=== PATIENT | female | born 1940 | race Caucasian/White ===

== ENCOUNTER 2018-02-21 17:10 | Emergency (ER) | payer MEDICARE, BC ==
--- NOTE | 2018-02-21 18:07 | EDM.PDOC ---
<SebastienVickie davis Lamonte - Last Filed: 02/21/18 19:05> ED HPI GENERAL MEDICAL PROBLEM - General Chief Complaint: Lower Extremity Injury/Pain Stated Complaint: SWOLLEN LEG.SURG 01/30/18 Time Seen by Provider: 02/21/18 17:20 Source of Information: Reports: Patient History Limitations: Reports: No Limitations - History of Present Illness INITIAL COMMENTS - FREE TEXT/NARRATIVE: C/O swelling and tightness to left lower leg and knee starting Monday. PT started Monday. 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 Leg feeling tight tonight. Traveling in car today to to see Derm. Did not contact PCP or Ortho. No fever or chills. No hx clotting problems. Only blood thinner. Left Lower Leg Pain Score (Numeric/FACES): 6 - Related Data Allergies Allergy/AdvReac Type Severity Reaction Status Date / Time diphenhydramine Allergy Other Verified 02/21/18 17:20 Home Meds: Home Meds Acetaminophen 1,000 mg PO Q6HR PRN 08/11/14 [History] Aspirin [Ecotrin] 325 mg PO BEDTIME 08/11/14 [History] Calcium Citrate/Vitamin D3 [Calcium Citrate - Vit D Caplet] 1 tab PO DAILY 08/11 [History] Rosuvastatin [Crestor] 20 mg PO BEDTIME 08/11/14 [History] Vitamin B Complex [B Complex] 1 tab PO BEDTIME 08/11/14 [History] Acetaminophen [Tylenol Extra Strength] 2 tab PO Q6H 11/06/15 [History] Biotin 1 tab PO BEDTIME 11/06/15 [History] Calcium Carb/D3/Magnesium/Zinc [Rodrigo Mag Zinc + D Tablet] 2 tab PO DAILY [History] Cholecalciferol (Vitamin D3) [Vitamin D3] 1 tab PO DAILY 11/06/15 [History] Glucosamine/D3/[place]oswellia Ivet [Osteo Bi-Flex Caplet] 1 tab PO BID 11/06/15 [ History] Glucosamine/Msm/Chondroitin A [Glucosamine Chondroit MSM Tab] 1 tab PO DAILY [History] Krill/[place]-3/Dha/Epa/Lipids [Krill Oil 300 mg Softgel] 1 tab PO DAILY 11/06/15 [History] Lutein 1 tab PO DAILY 11/06/15 [History] Methylcellulose [Citrucel] 1 tab PO BID 11/06/15 [History] Methylcellulose [Fiber] 1 tab PO BID 11/06/15 [History] Potassium 3 tab PO DAILY 11/06/15 [History] Psyllium Seed (With Sugar) [Metamucil Fiber Wafer] 2 wafer PO BEDTIME 11/06/15 [ History] Ubidecarenone [Coenzyme Q10] 1 tab PO DAILY 11/06/15 [History] Bumetanide 1 mg PO ASDIRECTED 02/21/18 [History] Past Medical History HEENT History: Reports: Cataract Other HEENT History: wears glasses Cardiovascular History: Reports: Heart Murmur, High Cholesterol, Hypertension Respiratory History: Reports: None Gastrointestinal History: Reports: None Genitourinary History: Reports: Renal Disease, Urinary Incontinence AN[employer] History: Reports: , Spontaneous Musculoskeletal History: Reports: Back Pain, Chronic, Osteoarthritis Other Musculoskeletal History: spinal stenosis of lumbar region Neurological History: Reports: None Psychiatric History: Reports: None Endocrine/Metabolic History: Reports: Hypothyroidism, Osteopenia Hematologic History: Reports: None Immunologic History: Reports: None Oncologic (Cancer) History: Reports: Colon Other Oncologic History: skin Dermatologic History: Reports: None - Infectious Disease History Infectious Disease History: Reports: Chicken Pox, Measles Other Infectious Disease History: jaundice - Past Surgical History HEENT Surgical History: Reports: None Respiratory Surgical History: Reports: None GI Surgical History: Reports: Appendectomy, Colonoscopy Other GI Surgeries/Procedures: some of bowel removed because of cancer Female Surgical History: Reports: Breast Reduction, D&C Social & Family History - Tobacco Use Smoking Status *Q: Never Smoker Second Hand Smoke Exposure: No Review of Systems - Review of Systems Review Of Systems: ROS reveals no pertinent complaints other than HPI. Eyes: Reports: No Symptoms Ears: Reports: No Symptoms Nose: Reports: No Symptoms Mouth/Throat: Reports: No Symptoms Respiratory: Denies: Shortness of Breath, Wheezing, Pleuritic Chest Pain, Cough , Sputum Cardiovascular: Reports: Edema (left lower leg) GI/Abdominal: Reports: No Symptoms Genitourinary: Reports: No Symptoms Musculoskeletal: Reports: No Symptoms Skin: Reports: No Symptoms, Wound (surgical incision to left knee, nancy intact no redness or drainage. ) Neurological: Reports: No Symptoms ED EXAM, GENERAL - Physical Exam Exam: See Below Exam Limited By: No Limitations General Appearance: Alert, Anxious, Mild Distress, Obese Eye Exam: Bilateral Eye: EOMI, PERRL Ears: Normal External Exam Nose: Normal Inspection Throat/Mouth: Normal Inspection Head: Atraumatic, Normocephalic Neck: Normal Inspection, Full Range of Motion. No: Lymphadenopathy (L), Lymphadenopathy (R) Respiratory/Chest: No Respiratory Distress, Lungs Clear, Normal Breath Sounds Cardiovascular: Normal Peripheral Pulses, Regular Rate, Rhythm GI/Abdominal: Normal Bowel Sounds Back Exam: Full Range of Motion Extremities: Limited Range of Motion, Other (left knee surgical incision, nancy intact without redness, mild warmth lateral knee. Mild swelling to knee , calf and ankle. ) Neurological: Alert, Oriented Psychiatric: Anxious Skin Exam: Warm, Dry, Normal Color Course - Vital Signs Last Recorded V/S: Last Vital Signs Temp 37.1 C 02/21/18 20:35 Pulse 100 02/21/18 20:35 Resp 16 02/21/18 20:35 BP 156/75 H 02/21/18 20:35 Pulse Ox 97 02/21/18 20:35 - Orders/Labs/Meds Labs: Laboratory Tests 02/21/18 02/21/18 Range/Units 18:25 18:25 WBC 10.6 H (5.0-10.0) 10^3/uL RBC 3.62 L (4.2-5.4) 10^6/uL Hgb 11.2 L (12.0-16.0) g/dL Hct 34.2 L (37.0-47.0) % MCV 94.5 (80-100) fL MCH 30.9 (27.0-34.0) pg MCHC 32.7 L (33.0-35.0) g/dL Plt Count 445 (150-450) 10^3/uL Neut % (Auto) 65.2 (42.2-75.2) % Lymph % (Auto) 17.8 L (20.5-50.1) % [place] % (Auto) 13.8 H (2-8) % Eos % (Auto) 2.8 (1.0-3.0) % Baso % (Auto) 0.4 (0.0-1.0) % Sodium 139 (135-145) mmol/L Potassium 3.7 (3.6-5.0) mmol/L Chloride 103 (101-111) mmol/L Carbon Dioxide 26.0 (21.0-31.0) mmol/L Anion Gap 13.7 BUN 16 (7-18) mg/dL Creatinine 1.0 (0.6-1.3) mg/dL Est Cr Clr Drug Dosing 40.68 mL/min Estimated GFR (MDRD) 54 BUN/Creatinine Ratio 16.00 Glucose 105 (74-105) mg/dL Calcium 9.5 (8.4-10.2) mg/dl Total Bilirubin 0.5 (0.2-1.0) mg/dL AST 24 (10-42) IU/L ALT 10 (10-60) IU/L Alkaline Phosphatase 103 (42-121) IU/L Total Protein 7.4 (6.7-8.2) g/dl Albumin 3.7 (3.2-5.5) g/dl Globulin 3.7 Albumin/Globulin Ratio 1.00 Meds: Medications Discontinued Medications Generic Name Dose Route Start Last Admin Trade Name Andreas PRN Reason Stop Dose Admin Hydrocodone Bitart/Acetaminophen 1 tab 02/21/18 18:33 02/21/18 18:42 [place] 325-10 Mg PO 02/21/18 18:34 1 tab ONETIME ONE Administration Bumetanide 1 mg 02/21/18 18:05 02/21/18 18:31 Bumex IVPUSH 02/21/18 18:06 Not Given ONETIME ONE Clindamycin Phosphate 900 mg/ 106 mls @ 200 mls/hr 02/21/18 19:27 02/21/18 19 :36 Sodium Chloride IV 02/21/18 19:58 200 mls/hr ONETIME ONE Administration - Re-Assessments/Exams Free Text/Narrative Re-Assessment/Exam: 02/21/18 18:[address] Esposito with shift change Departure - Departure Disposition: Home, Self-Care 01 Clinical Impression: Post op infection Qualifiers: Encounter type: initial encounter Qualified Code(s): T81.4XXA - Infection following a procedure, initial encounter - Discharge Information Instructions: Wound Infection, [id number] Referrals: Mariah Curry PA [Primary Care Provider] - Forms: ED Department Discharge Additional Instructions: 1) elevate left leg as much as possible 2) avoid excess activity next 48 hours 3) leg swelling should subside in dixon morning if not see Mariah 4) recheck if there is any change or concern rx given; clindamycin 150mg qid x 40 <Burak Esposito - Last Filed: 02/22/18 02:48> Course - Re-Assessments/Exams Free Text/Narrative Re-Assessment/Exam: 02/21/18 19:28 re-exam; states left knee started swelling and turned red on way back from [place]. now feels worse. had total knee on the 7th. left knee swollen red warmth. no lymphangitis. 02/21/18 20:34 re-exam; no c/o, discharge instructions discussed. Departure - Departure Time of Disposition: 20:45 Condition: Good
[2018-02-21] MEDS: Bumetanide 1 MG/4 ML MDV IVPUSH ONE (18:31)
[2018-02-21] MEDS: Acetaminophen/HYDROcodone 325-10 MG Tab PO ONE (18:42)
[2018-02-21 19:01] LABS: ANION GAP 13.7
[2018-02-21] MEDS: Clindamycin Phosphate 900 MG in Sodium Chloride 0.9% 100 ML IV ONE (19:36)
[2018-02-21 20:36] VITALS: BP 156/75
== END 2018-02-21 20:46 | disposition home or self-care (01) ==
LOC: DL.ED 17:10
DX: T81.4XXA Infection following a procedure, initial encounter (principal); I10 Essential (primary) hypertension; Z88.8 Allergy status to other drugs, medicaments and biological substances; Z79.899 Other long term (current) drug therapy; Z96.652 Presence of left artificial knee joint
CPT/HCPCS: 36415; 80053; 85025; 96365; 99284; A9270; J3490; J7050

== ENCOUNTER 2018-02-24 13:22 | Inpatient (IN) | payer MEDICARE, BC ==
[2018-02-24] MEDS ORDERED: HYDROmorphone 1 MG/ML Syringe IVPUSH ONE ×2 (13:47→17:12)
[2018-02-24] MEDS ORDERED: Ondansetron 4 MG/2 ML SDV IV ONE (13:47)
[2018-02-24] MEDS: Sodium Chloride 0.9% 10 ML Syringe FLUSH PRN (13:52)
[2018-02-24] MEDS ORDERED: Sodium Chloride 0.9% 1,000 ML IV ONE (15:23)
[2018-02-24] MEDS ORDERED: Iopamidol 755 Mg/ML 100 ML Bottle IVPUSH ONE (15:23)
--- NOTE | 2018-02-24 17:15 | EDM.PDOC ---
"Scribed by Vandana Davis 02/24/18 1539 for Nabeel Cunningham MD ED HPI GENERAL MEDICAL PROBLEM - General Chief Complaint: Lower Extremity Injury/Pain Stated Complaint: IN BY AMBULANCE Time Seen by Provider: 02/24/18 13:24 Source of Information: Reports: Patient, Family, Old Records, RN, RN Notes Reviewed History Limitations: Reports: No Limitations - History of Present Illness INITIAL COMMENTS - FREE TEXT/NARRATIVE: Patient presents to ER by [facility] with complaint of right knee pain, mild shortness of breath, decreased appetite and generalized weakness. Patient had left total knee replacement, 01/30/18 in [place]. Last week she complained of increased pain and swelling at left knee and calf and was referred to her primary clinic provider. She was diagnosed with left lower extremity DVT and started on Xarelto. Denies fever. Admits to chills. She also has been experiencing nausea today only. No vomiting. No change in bowel or urinary habits. Pt c/o generalized weakness and shortness of breath which has slowly worsened. Pt is afraid that she has become to weak and short of breath to be safe at home alone. Onset: Gradual Duration: Getting Worse Location: Reports: Chest, Lower Extremity, Right Quality: Reports: Ache Severity: Severe Improves with: Reports: None Worsens with: Reports: None Associated Symptoms: Reports: No Other Symptoms Right Knee Pain Score (Numeric/FACES): 9 - Related Data Allergies Allergy/AdvReac Type Severity Reaction Status Date / Time diphenhydramine Allergy Other Verified 02/21/18 17:20 Home Meds: Home Meds Calcium Citrate/Vitamin D3 [Calcium Citrate - Vit D Caplet] 1 tab PO DAILY 08/11 [History] Rosuvastatin [Crestor] 20 mg PO BEDTIME 08/11/14 [History] Acetaminophen [Tylenol Extra Strength] 2 tab PO Q6H 11/06/15 [History] Biotin 1 tab PO BEDTIME 11/06/15 [History] Lutein 1 tab PO DAILY 11/06/15 [History] Methylcellulose [Fiber] 1 tab PO BID 11/06/15 [History] Potassium 3 tab PO DAILY 11/06/15 [History] Psyllium Seed (With Sugar) [Metamucil Fiber Wafer] 2 wafer PO BEDTIME 11/06/15 [ History] Bumetanide 1 mg PO ASDIRECTED 02/21/18 [History] Ascorbic Acid [Vitamin C] 500 mg PO DAILY 02/24/18 [History] Clindamycin HCl 150 mg PO QID 02/24/18 [History] Folic Acid 400 mcg PO DAILY 02/24/18 [History] Magnesium Oxide 250 mg PO DAILY 02/24/18 [History] Oxybutynin Chloride [Ditropan Xl] 10 mg PO DAILY 02/24/18 [History] Potassium Chloride 10 meq PO TID 02/24/18 [History] Rivaroxaban [Xarelto] 15 mg PO TID 02/24/18 [History] oxyCODONE 5 mg PO Q4H PRN 02/24/18 [History] Past Medical History HEENT History: Reports: Cataract Other HEENT History: wears glasses Cardiovascular History: Reports: Heart Murmur, High Cholesterol, Hypertension Respiratory History: Reports: None Gastrointestinal History: Reports: None Genitourinary History: Reports: Renal Disease, Urinary Incontinence [employer]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 [employer]ENT[employer] HE[employer] WORKER History: Reports: , Spontaneous Musculoskeletal History: Reports: Back Pain, Chronic, Osteoarthritis Other Musculoskeletal History: spinal stenosis of lumbar region Neurological History: Reports: None Psychiatric History: Reports: None Endocrine/Metabolic History: Reports: Hypothyroidism, Osteopenia Hematologic History: Reports: None Immunologic History: Reports: None Oncologic (Cancer) History: Reports: Colon Other Oncologic History: skin Dermatologic History: Reports: None - Infectious Disease History Infectious Disease History: Reports: Chicken Pox, Measles Other Infectious Disease History: jaundice - Past Surgical History HEENT Surgical History: Reports: None Respiratory Surgical History: Reports: None GI Surgical History: Reports: Appendectomy, Colonoscopy Other GI Surgeries/Procedures: some of bowel removed because of cancer Female Surgical History: Reports: Breast Reduction, D&C Musculoskeletal Surgical History: Reports: Knee Replacement (left) Social & Family History - Family History Family Medical History: Noncontributory - Living Situation & Occupation Living situation: Reports: Alone Occupation: Retired Review of Systems - Review of Systems Review Of Systems: ROS reveals no pertinent complaints other than HPI. ED EXAM, GENERAL - Physical Exam Exam: See Below Exam Limited By: Other (generalized weakness) General Appearance: Alert, No Apparent Distress, Other (frail appearing, non toxic. ) Eye Exam: Bilateral Eye: Normal Inspection Ears: Normal External Exam, Hearing Grossly Normal Nose: Normal Inspection, Normal Mucosa, No Blood Throat/Mouth: Normal Lips, Normal Teeth, Normal Oropharynx, Normal Voice, Other (slightly dry oral membranes) Head: Atraumatic, Normocephalic Neck: Normal Inspection, Supple, Non-Tender, Full Range of Motion Respiratory/Chest: No Respiratory Distress, No Accessory Muscle Use, Chest Non- Tender, Decreased Breath Sounds ( in bilateral bases. Intermittent right basilar rhonchi. ), Other (No cough.). No: Rales, Wheezing Cardiovascular: Normal Peripheral Pulses, Regular Rate, Rhythm, Other (trace pedal edema) GI/Abdominal: Normal Bowel Sounds, Soft, Non-Tender, No Distention. No: Guarding, Rigid, Rebound (Female) Exam: Deferred Rectal (Female) Exam: Deferred Back Exam: Normal Inspection Extremities: Normal Capillary Refill, Other (Mild generalized tenderness to palpation of the right knee with no visible swelling, erythema and no increased warmth. She has a post surgical left knee with no evidence of acute infection. ) . No: Luke's Sign (right calf nontender), Pallor, Redness Neurological: Alert, Oriented, Normal Cognition, No Motor/Sensory Deficits Psychiatric: Normal Mood Skin Exam: Warm, Dry, Intact, Normal Color, No Rash, Other (small bruise to left palmar hand) Course - Vital Signs Last Recorded V/S: Last Vital Signs Temp 37.0 C 02/24/18 17:09 Pulse 93 02/24/18 17:09 Resp 18 02/24/18 17:09 BP 122/96 H 02/24/18 17:09 Pulse Ox 93 L 02/24/18 13:35 - Orders/Labs/Meds Orders: Active Orders 24 hr Category Date Time Status Peripheral IV Care [RC] . DIRECTED Care 02/24/18 13:46 Active CULTURE BLOOD [BC] Stat Lab 02/24/18 14:47 Ordered CULTURE BLOOD [BC] Stat Lab 02/24/18 16:14 Results UA W/MICROSCOPIC [URIN] Stat Lab 02/24/18 14:48 Ordered HYDROmorphone [Dilaudid] Med 02/24/18 17:12 Once 1 mg IVPUSH ONETIME ONE Sodium Chloride 0.9% [Normal Saline] 1,000 ml Med 02/24/18 15:23 Active IV .BOLUS Sodium Chloride 0.9% [Saline Flush] Med 02/24/18 13:45 Active 10 ml FLUSH ASDIRECTED PRN Blood Culture x2 Reflex Set [OM.PC] Stat Oth 02/24/18 14:47 Ordered Peripheral IV Insertion Adult [OM.PC] Stat Ot 02/24/18 13:45 Ordered Medication Orders Sodium Chloride (Normal Saline) 1,000 mls @ 500 mls/hr IV .BOLUS ONE Stop: 02/24/18 17:22 Last Admin: 02/24/18 15:27 Dose: 500 mls/hr Sodium Chloride (Saline Flush) 10 ml FLUSH ASDIRECTED PRN PRN Reason: Keep Vein Open Last Admin: 02/24/18 13:52 Dose: 10 ml Labs: Laboratory Tests 02/24/18 02/24/18 02/24/18 Range/Units 13:58 13:58 13:58 WBC 17.6 H (5.0-10.0) 10^3/uL RBC 3.82 L (4.2-5.4) 10^6/uL Hgb 11.7 L (12.0-16.0) g/dL Hct 35.7 L (37.0-47.0) % MCV 93.5 (80-100) fL MCH 30.6 (27.0-34.0) pg MCHC 32.8 L (33.0-35.0) g/dL Plt Count 464 H (150-450) 10^3/uL Neut % (Auto) 75.9 H (42.2-75.2) % Lymph % (Auto) 10.8 L (20.5-50.1) % Coos % (Auto) 12.6 H (2-8) % Eos % (Auto) 0.5 L (1.0-3.0) % Baso % (Auto) 0.2 (0.0-1.0) % PT (9.0-12.0) SEC INR (0.9-1.2) APTT (22.0-34.0) SEC Sodium 136 (135-145) mmol/L Potassium 4.0 (3.6-5.0) mmol/L Chloride 99 L (101-111) mmol/L Carbon Dioxide 26.0 (21.0-31.0) mmol/L Anion Gap 15.0 BUN 12 (7-18) mg/dL Creatinine 1.1 (0.6-1.3) mg/dL Est Cr Clr Drug Dosing 36.21 mL/min Estimated GFR (MDRD) 48 BUN/Creatinine Ratio 10.90 Glucose 112 H (74-105) mg/dL Lactic Acid (0.5-2.2) mmol/L Calcium 9.1 (8.4-10.2) mg/dl Total Bilirubin 1.0 (0.2-1.0) mg/dL AST 21 (10-42) IU/L ALT 9 L (10-60) IU/L Alkaline Phosphatase 93 (42-121) IU/L B-Natriuretic Peptide 109 H (0-100) pg/ml Total Protein 7.2 (6.7-8.2) g/dl Albumin 3.6 (3.2-5.5) g/dl Globulin 3.6 Albumin/Globulin Ratio 1.00 Amylase 25 L (28-100) U/L Lipase 16 L (22-51) U/L Urine Color (YELLOW) Urine Appearance (CLEAR) Urine pH (5.0-9.0) Ur Specific [place] (1.005-1.030) Urine Protein (NEGATIVE) Urine Glucose (UA) (NEGATIVE) Urine Ketones (NEGATIVE) Urine Occult Blood (NEGATIVE) Urine Nitrite (NEGATIVE) Urine Bilirubin (NEGATIVE) Urine Urobilinogen (0.2-1.0) mg/dL Ur Leukocyte Esterase (NEGATIVE) Urine RBC /HPF Urine WBC (0-5/HPF) /HPF Ur Epithelial Cells /HPF Urine Bacteria (0-FEW/HPF) /HPF Urine Mucus /LPF Urine Other 02/24/18 02/24/18 02/24/18 Range/Units 14:47 14:48 16:14 WBC (5.0-10.0) 10^3/uL RBC (4.2-5.4) 10^6/uL Hgb (12.0-16.0) g/dL Hct (37.0-47.0) % MCV (80-100) fL MCH (27.0-34.0) pg MCHC (33.0-35.0) g/dL Plt Count (150-450) 10^3/uL Neut % (Auto) (42.2-75.2) % Lymph % (Auto) (20.5-50.1) % Coos % (Auto) (2-8) % Eos % (Auto) (1.0-3.0) % Baso % (Auto) (0.0-1.0) % PT 14.4 H (9.0-12.0) SEC INR 1.5 H (0.9-1.2) APTT 44.2 H (22.0-34.0) SEC Sodium (135-145) mmol/L Potassium (3.6-5.0) mmol/L Chloride (101-111) mmol/L Carbon Dioxide (21.0-31.0) mmol/L Anion Gap BUN (7-18) mg/dL Creatinine (0.6-1.3) mg/dL Est Cr Clr Drug Dosing mL/min Estimated GFR (MDRD) BUN/Creatinine Ratio Glucose (74-105) mg/dL Lactic Acid 1.0 (0.5-2.2) mmol/L Calcium (8.4-10.2) mg/dl Total Bilirubin (0.2-1.0) mg/dL AST (10-42) IU/L ALT (10-60) IU/L Alkaline Phosphatase (42-121) IU/L B-Natriuretic Peptide (0-100) pg/ml Total Protein (6.7-8.2) g/dl Albumin (3.2-5.5) g/dl Globulin Albumin/Globulin Ratio Amylase (28-100) U/L Lipase (22-51) U/L Urine Color Yellow (YELLOW) Urine Appearance Slightly cloudy (CLEAR) Urine pH 5.5 (5.0-9.0) Ur Specific [place] 1.010 (1.005-1.030) Urine Protein Negative (NEGATIVE) Urine Glucose (UA) Negative (NEGATIVE) Urine Ketones Negative (NEGATIVE) Urine Occult Blood Trace-lysed H (NEGATIVE) Urine Nitrite Negative (NEGATIVE) Urine Bilirubin Negative (NEGATIVE) Urine Urobilinogen 0.2 (0.2-1.0) mg/dL Ur Leukocyte Esterase Moderate H (NEGATIVE) Urine RBC 0-5 /HPF Urine WBC 5-10 H (0-5/HPF) /HPF Ur Epithelial Cells Many H /HPF Urine Bacteria Few (0-FEW/HPF) /HPF Urine Mucus Few H /LPF Urine Other See note Meds: Medications Generic Name Dose Route Start Last Admin Trade Name Freq PRN Reason Stop Dose Admin Sodium Chloride 1,000 mls @ 500 mls/hr 02/24/18 15:23 02/24/18 15:27 Normal Saline IV 02/24/18 17:22 500 mls/hr .BOLUS ONE Administration Sodium Chloride 10 ml 02/24/18 13:45 02/24/18 13:52 Saline Flush FLUSH 10 ml ASDIRECTED PRN Administration Keep Vein Open Discontinued Medications Generic Name Dose Route Start Last Admin Trade Name Freq PRN Reason Stop Dose Admin Hydromorphone HCl 1 mg 02/24/18 13:47 02/24/18 13:53 Dilaudid IVPUSH 02/24/18 13:48 1 mg ONETIME ONE Administration Iopamidol 100 ml 02/24/18 15:23 02/24/18 15:36 Isovue-370 (76%) IVPUSH 02/24/18 15:24 100 ml ONETIME ONE Administration Ondansetron HCl 4 mg 02/24/18 13:47 02/24/18 13:52 Zofran IV 02/24/18 13:48 4 mg ONETIME ONE Administration - Radiology Interpretation Free Text/Narrative:: [facility] Final Radiology Report Call: [phone] assistance Online chat: [email or web address] Name: ALOK OROSCO Age: 77Years F Date: 02/24/2018 SSN: -- : [id number] Study: XR CHEST 1 VIEW Requesting Physician: NABEEL CUNNINGHAM Images: 1 Addl Studies: Provided Clinical History: Contrast: Contrast Medium: Contrast Amount: Contrast Method: CONFIDENTIALITY STATEMENT This report is intended only for use by the referring physician, and only in accordance with law. If you received this in error, call [phone]. Page 1 of 1 EXAM: XR Chest, 1 View CLINICAL HISTORY: 77 years old, female; Signs and symptoms; Other: Hypoxiarhonchi rt base wbc 17.6 TECHNIQUE: Frontal view of the chest. COMPARISON: No relevant prior studies available. FINDINGS: Lungs: Unremarkable. No consolidation. Pleural space: Unremarkable. No pneumothorax. Heart: Unremarkable. No cardiomegaly. Mediastinum: Unremarkable. Bones/joints: Unremarkable. IMPRESSION: No acute cardiopulmonary process. Thank you for allowing us to participate in the care of your patient. Dictated and Authenticated by: Alec Patton MD 02/24/2018 3:18 PM [facility] [place] [facility] Final Radiology Report Call: [phone] assistance Online chat: [email or web address] Name: ALOK OROSCO Age: 77Years F Date: 02/24/2018 SSN: -- : [id number] Study: CT CHEST W Requesting Physician: NABEEL CUNNINGHAM Images: 409 Addl Studies: Provided Clinical History: Contrast: With Contrast Medium: Contrast Amount: 82 mL Contrast Method: lac Page 1 of 2 EXAM: CT Chest With Intravenous Contrast CLINICAL HISTORY: 77 years old, female; Signs and symptoms; Other: Hypoxia, dvt left lower extremity, toal knee replacement left knee 01/30/18--pe eval TECHNIQUE: Axial computed tomography images of the chest with intravenous contrast. All CT scans at this facility use at least one of these dose optimization techniques: automated exposure control; mA and/or kV adjustment per patient size (includes targeted exams where dose is matched to clinical indication); or iterative reconstruction. Coronal and sagittal reformatted images were created and reviewed. CONTRAST: 82 mL of administered intravenously. COMPARISON: CR - Chest 1V Frontal 02/24/2018 2:42 PM FINDINGS: Lungs: There are linear bands of atelectasis in both lower lobes. Pleural space: Unremarkable. No pneumothorax. No significant effusion. Heart: There is mild cardiomegaly No significant pericardial effusion. Thyroid: There is a large right lobe of the thyroid. Bones/joints: Unremarkable. No acute fracture. No dislocation. Soft tissues: Unremarkable. Vasculature: There are small peripheral emboli in the left upper lobe, image 57 series 9. There is question of small peripheral embolism right lower lobe, image 83. No thoracic aortic aneurysm. Lymph nodes: Unremarkable. No enlarged lymph nodes. ALOK OROSCO | Final Radiology Report CONFIDENTIALITY STATEMENT This report is intended only for use by the referring physician, and only in accordance with law. If you received this in error, call [phone]. Page 2 of 2 IMPRESSION: Small peripheral pulmonary emboli bilaterally. Enlarged right lobe of the thyroid. Thyroid ultrasound is advised to further evaluate. Thank you for allowing us to participate in the care of your patient. Dictated and Authenticated by: Alec Patton MD 02/24/2018 4:51 PM Central Time Departure - Departure Time of Disposition: 17:08 ((Admit to Dr. Tristan)) Disposition: Admitted As Inpatient 66 Condition: Serious Clinical Impression: Hypoxia Pulmonary emboli Qualifiers: Pulmonary embolism type: other Chronicity: acute Acute cor pulmonale presence: without acute cor pulmonale Qualified Code(s): I26.99 - Other pulmonary embolism without acute cor pulmonale DVT, lower extremity Qualifiers: Affected thrombotic vein of extremity: unspecified vein of extremity Chronicity : acute Laterality: left Qualified Code(s): I82.402 - Acute embolism and thrombosis of unspecified deep veins of left lower extremity - Discharge Information Forms: ED Department Discharge - My Orders Last 24 Hours: My Active Orders 02/24/18 13:45 Sodium Chloride 0.9% [Saline Flush] 10 ml FLUSH ASDIRECTED PRN Peripheral IV Insertion Adult [OM.PC] Stat 02/24/18 13:46 Peripheral IV Care [RC] . DIRECTED 02/24/18 14:47 CULTURE BLOOD [BC] Stat Blood Culture x2 Reflex Set [OM.PC] Stat 02/24/18 14:48 UA W/MICROSCOPIC [URIN] Stat 02/24/18 15:23 Sodium Chloride 0.9% [Normal Saline] 1,000 ml IV .BOLUS 02/24/18 16:14 CULTURE BLOOD [BC] Stat 02/24/18 17:12 HYDROmorphone [Dilaudid] 1 mg IVPUSH ONETIME ONE - Assessment/Plan Last 24 Hours: My Active Orders 02/24/18 13:45 Sodium Chloride 0.9% [Saline Flush] 10 ml FLUSH ASDIRECTED PRN Peripheral IV Insertion Adult [OM.PC] Stat 02/24/18 13:46 Peripheral IV Care [RC] . DIRECTED 02/24/18 14:47 CULTURE BLOOD [BC] Stat Blood Culture x2 Reflex Set [OM.PC] Stat 02/24/18 14:48 UA W/MICROSCOPIC [URIN] Stat 02/24/18 15:23 Sodium Chloride 0.9% [Normal Saline] 1,000 ml IV .BOLUS 02/24/18 16:14 CULTURE BLOOD [BC] Stat 02/24/18 17:12 HYDROmorphone [Dilaudid] 1 mg IVPUSH ONETIME ONE I have read and agree with the documentation that has been completed regarding this visit. By signing this record, I attest that the documentation was completed in my physical presence and is an accurate record of the encounter."
--- NOTE | 2018-02-24 17:51 | PCM.HP ---
H&P History of Present Illness - General Date of Service: 02/24/18 Admit Problem/Dx: Admitted with: Right Knee Pain, acute Hypoxia and generalized weakness Source of Information: Patient, Old Records - History of Present Illness Initial Comments - Free Text/Narative: Ms. Esperanza Jasso 77 y.o.with medical history noted for hypertension and morbid obesity, S/P colon resection for colon cancer, hypothyroidism, CKD stage III with base line creatinine 1.1-1.4 mg/dl .The patient presented to ER of [place] [facility] with complaint of right knee pain, acute shortness of breath, decreased appetite and generalized weakness. Patient had left total knee replacement, 01/30/18 in [place] .Last week she complained of increased pain and swelling at left knee and calf and was referred to her primary clinic provider. She was diagnosed with left lower extremity DVT and started on Xarelto. She is leaving alone at home alone and because of weakness and Increased shortness of breath , it was felt the she will not be be safe at home and admitted for possible placement and also she is not on oxygen at home and she is now requiring oxygen and that needs to be weaned off . Pt had CT chest with contrast Today ( 02/24/18) and it showed small peripheral pulmonary Emboli Bilaterally and enlarged right lobe of the Thyroid. Onset of Symptoms: Reports: Gradual Duration of Symptoms: Reports: Day(s): (2) Location: Reports: Lower Extremity, Right Quality: Reports: Sharp Severity: Moderate Associated Symptoms: Reports: Weakness Right Knee Pain Score (Numeric/FACES): 9 - Related Data Allergies/Adverse Reactions: Allergies Allergy/AdvReac Type Severity Reaction Status Date / Time diphenhydramine Allergy Other Verified 02/24/18 19:24 Home Medications: Home Meds Calcium Citrate/Vitamin D3 [Calcium Citrate - Vit D Caplet] 1 tab PO DAILY 08/11 [History] Rosuvastatin [Crestor] 20 mg PO BEDTIME 08/11/14 [History] Acetaminophen [Tylenol Extra Strength] 2 tab PO Q6H 11/06/15 [History] Biotin 1 tab PO BEDTIME 11/06/15 [History] Lutein 1 tab PO DAILY 11/06/15 [History] Methylcellulose [Fiber] 1 tab PO TID 11/06/15 [History] Bumetanide 1 mg PO Q48H 02/21/18 [History] Ascorbic Acid [Vitamin C] 500 mg PO 1400 02/24/18 [History] Clindamycin HCl 150 mg PO QID 02/24/18 [History] Folic Acid 400 mcg PO DAILY 02/24/18 [History] Glucosamine/Msm/Chondroitin A [Triple Flex Caplet] 1 each PO 1400 02/24/18 [ History] Magnesium Oxide 250 mg PO 1400 02/24/18 [History] Oxybutynin Chloride [Ditropan Xl] 10 mg PO BEDTIME 02/24/18 [History] Potassium Chloride 10 meq PO TID 02/24/18 [History] Rivaroxaban [Xarelto] 15 mg PO BID 02/24/18 [History] oxyCODONE 5 mg PO Q4H PRN 02/24/18 [History] Past Medical History HEENT History: Reports: Cataract Other HEENT History: wears glasses Cardiovascular History: Reports: Heart Murmur, High Cholesterol, Hypertension Respiratory History: Reports: None Gastrointestinal History: Reports: None Genitourinary History: Reports: Renal Disease, Urinary Incontinence [employer] History: Reports: , Spontaneous Musculoskeletal History: Reports: Back Pain, Chronic, Osteoarthritis Other Musculoskeletal History: spinal stenosis of lumbar region Neurological History: Reports: None Psychiatric History: Reports: None Endocrine/Metabolic History: Reports: Hypothyroidism, Osteopenia Hematologic History: Reports: None Immunologic History: Reports: None Oncologic (Cancer) History: Reports: Colon Other Oncologic History: skin Dermatologic History: Reports: None - Infectious Disease History Infectious Disease History: Reports: Chicken Pox, Measles Other Infectious Disease History: jaundice - Past Surgical History HEENT Surgical History: Reports: None Respiratory Surgical History: Reports: None GI Surgical History: Reports: Appendectomy, Colonoscopy Other GI Surgeries/Procedures: some of bowel removed because of cancer Female Surgical History: Reports: Breast Reduction, D&C Musculoskeletal Surgical History: Reports: Knee Replacement (left) Social & Family History - Family History Family Medical History: Noncontributory - Tobacco Use Smoking Status *Q: Never Smoker - Caffeine Use Caffeine Use: Reports: Coffee - Recreational Drug Use Recreational Drug Use: No - Living Situation & Occupation Living situation: Reports: Alone Occupation: Retired H&P Review of Systems - Review of Systems: Review Of Systems: See Below General: Reports: Weakness, Fatigue. Denies: Fever, Chills, Weight Loss, Weight Gain HEENT: Denies: Headaches, Sinus Congestion, Sore Throat, Visual Changes Pulmonary: Reports: Shortness of Breath. Denies: Cough, Sputum Cardiovascular: Denies: Chest Pain, Dyspnea on Exertion, Lightheadedness Gastrointestinal: Denies: Abdominal Pain, Diarrhea, Nausea, Vomiting Genitourinary: Reports: Hematuria. Denies: Dysuria, Frequency, Burning, Urgency , Flank Pain Musculoskeletal: Reports: Other (Left Knee pain) Skin: Denies: Jaundice, Bruising, Pruritis, Rash Psychiatric: Denies: Anxiety, Hallucinations Neurological: Denies: Confusion, Tingling, Tremors Hematologic/Lymphatic: Reports: No Symptoms Immunologic: Reports: No Symptoms Exam - Exam Exam: See Below - Vital Signs Vital Signs: Last Vital Signs Temp 37.0 C 02/24/18 17:09 Pulse 93 02/24/18 17:09 Resp 18 02/24/18 17:09 BP 122/96 H 02/24/18 17:09 Pulse Ox 93 L 02/24/18 13:35 Weight: 90.718 kg - Exam Quality Assessment: Supplemental Oxygen, DVT Prophylaxis. No: Central Line/PICC , Urinary Catheter General: Alert, Oriented, Cooperative HEENT: Conjunctiva Clear, Hearing Intact, Mucosa Moist & [place] Neck: Supple. No: Lymphadenopathy, Thyromegaly Cardiovascular: Regular Rate, Regular Rhythm, Normal S1, Normal S2, Systolic Murmur GI/Abdominal Exam: Normal Bowel Sounds, Soft, Non-Tender. No: Guarding, Rebound , Tender (Female) Exam: Deferred Rectal (Female) Exam: Deferred Back Exam: Normal Inspection, Full Range of Motion Extremities: Normal Inspection, Pedal Edema Skin: Warm, Dry, Intact Neurological: Cranial Nerves Intact Neuro Extensive - Mental Status: Alert, Oriented x3, Normal Mood/Affect, Normal Cognition, Memory Intact Psychiatric: Alert, Normal Affect, Normal Mood - Patient Data Lab Results Last 24 hrs: Laboratory Results - last 24 hr 02/24/18 02/24/18 02/24/18 Range/Units 13:58 13:58 13:58 WBC 17.6 H (5.0-10.0) 10^3/uL RBC 3.82 L (4.2-5.4) 10^6/uL Hgb 11.7 L (12.0-16.0) g/dL Hct 35.7 L (37.0-47.0) % MCV 93.5 (80-100) fL MCH 30.6 (27.0-34.0) pg MCHC 32.8 L (33.0-35.0) g/dL Plt Count 464 H (150-450) 10^3/uL Neut % (Auto) 75.9 H (42.2-75.2) % Lymph % (Auto) 10.8 L (20.5-50.1) % [place] % (Auto) 12.6 H (2-8) % Eos % (Auto) 0.5 L (1.0-3.0) % Baso % (Auto) 0.2 (0.0-1.0) % PT (9.0-12.0) SEC INR (0.9-1.2) APTT (22.0-34.0) SEC Sodium 136 (135-145) mmol/L Potassium 4.0 (3.6-5.0) mmol/L Chloride 99 L (101-111) mmol/L Carbon Dioxide 26.0 (21.0-31.0) mmol/L Anion Gap 15.0 BUN 12 (7-18) mg/dL Creatinine 1.1 (0.6-1.3) mg/dL Est Cr Clr Drug Dosing 36.21 mL/min Estimated GFR (MDRD) 48 BUN/Creatinine Ratio 10.90 Glucose 112 H (74-105) mg/dL Lactic Acid (0.5-2.2) mmol/L Calcium 9.1 (8.4-10.2) mg/dl Total Bilirubin 1.0 (0.2-1.0) mg/dL AST 21 (10-42) IU/L ALT 9 L (10-60) IU/L Alkaline Phosphatase 93 (42-121) IU/L B-Natriuretic Peptide 109 H (0-100) pg/ml Total Protein 7.2 (6.7-8.2) g/dl Albumin 3.6 (3.2-5.5) g/dl Globulin 3.6 Albumin/Globulin Ratio 1.00 Amylase 25 L (28-100) U/L Lipase 16 L (22-51) U/L Urine Color (YELLOW) Urine Appearance (CLEAR) Urine pH (5.0-9.0) Ur Specific [place] (1.005-1.030) Urine Protein (NEGATIVE) Urine Glucose (UA) (NEGATIVE) Urine Ketones (NEGATIVE) Urine Occult Blood (NEGATIVE) Urine Nitrite (NEGATIVE) Urine Bilirubin (NEGATIVE) Urine Urobilinogen (0.2-1.0) mg/dL Ur Leukocyte Esterase (NEGATIVE) Urine RBC /HPF Urine WBC (0-5/HPF) /HPF Ur Epithelial Cells /HPF Urine Bacteria (0-FEW/HPF) /HPF Urine Mucus /LPF Urine Other 02/24/18 02/24/18 02/24/18 Range/Units 14:47 14:48 16:14 WBC (5.0-10.0) 10^3/uL RBC (4.2-5.4) 10^6/uL Hgb (12.0-16.0) g/dL Hct (37.0-47.0) % MCV (80-100) fL MCH (27.0-34.0) pg MCHC (33.0-35.0) g/dL Plt Count (150-450) 10^3/uL Neut % (Auto) (42.2-75.2) % Lymph % (Auto) (20.5-50.1) % [place] % (Auto) (2-8) % Eos % (Auto) (1.0-3.0) % Baso % (Auto) (0.0-1.0) % PT 14.4 H (9.0-12.0) SEC INR 1.5 H (0.9-1.2) APTT 44.2 H (22.0-34.0) SEC Sodium (135-145) mmol/L Potassium (3.6-5.0) mmol/L Chloride (101-111) mmol/L Carbon Dioxide (21.0-31.0) mmol/L Anion Gap BUN (7-18) mg/dL Creatinine (0.6-1.3) mg/dL Est Cr Clr Drug Dosing mL/min Estimated GFR (MDRD) BUN/Creatinine Ratio Glucose (74-105) mg/dL Lactic Acid 1.0 (0.5-2.2) mmol/L Calcium (8.4-10.2) mg/dl Total Bilirubin (0.2-1.0) mg/dL AST (10-42) IU/L ALT (10-60) IU/L Alkaline Phosphatase (42-121) IU/L B-Natriuretic Peptide (0-100) pg/ml Total Protein (6.7-8.2) g/dl Albumin (3.2-5.5) g/dl Globulin Albumin/Globulin Ratio Amylase (28-100) U/L Lipase (22-51) U/L Urine Color Yellow (YELLOW) Urine Appearance Slightly cloudy (CLEAR) Urine pH 5.5 (5.0-9.0) Ur Specific [place] 1.010 (1.005-1.030) Urine Protein Negative (NEGATIVE) Urine Glucose (UA) Negative (NEGATIVE) Urine Ketones Negative (NEGATIVE) Urine Occult Blood Trace-lysed H (NEGATIVE) Urine Nitrite Negative (NEGATIVE) Urine Bilirubin Negative (NEGATIVE) Urine Urobilinogen 0.2 (0.2-1.0) mg/dL Ur Leukocyte Esterase Moderate H (NEGATIVE) Urine RBC 0-5 /HPF Urine WBC 5-10 H (0-5/HPF) /HPF Ur Epithelial Cells Many H /HPF Urine Bacteria Few (0-FEW/HPF) /HPF Urine Mucus Few H /LPF Urine Other See note Result Diagrams: 02/24/18 13:58 02/24/18 13:58 Luis Antonio Results Last 24 hrs: Microbiology 02/24/18 16:14 Anaerobic Blood Culture - Final Blood - Venous - Lab Draw - Problem List (1) Hypoxia SNOMED Code(s): 657644216 ICD Code: R09.02 - HYPOXEMIA Status: Acute Current Visit: No (2) Post op infection SNOMED Code(s): 56564894 ICD Code: T81.4XXA - INFECTION FOLLOWING A PROCEDURE, INITIAL ENCOUNTER Status: Acute Current Visit: No Qualifiers: Encounter type: initial encounter (3) Pulmonary emboli SNOMED Code(s): 93906376 ICD Code: I26.99 - OTHER PULMONARY EMBOLISM WITHOUT ACUTE COR PULMONALE Status: Acute Current Visit: No Qualifiers: Pulmonary embolism type: other Chronicity: acute Acute cor pulmonale presence: without acute cor pulmonale Qualified Code(s): I26.99 - Other pulmonary embolism without acute cor pulmonale Problem List Initiated/Reviewed/Updated: Yes Orders Last 24hrs: Active Orders 24 hr Category Date Time Status Peripheral IV Care [RC] . DIRECTED Care 02/24/18 13:46 Active CULTURE BLOOD [BC] Stat Lab 02/24/18 14:47 Ordered CULTURE BLOOD [BC] Stat Lab 02/24/18 16:14 Results UA W/MICROSCOPIC [URIN] Stat Lab 02/24/18 14:48 Ordered Sodium Chloride 0.9% [Saline Flush] Med 02/24/18 13:45 Active 10 ml FLUSH ASDIRECTED PRN Blood Culture x2 Reflex Set [OM.PC] Stat Oth 02/24/18 14:47 Ordered Peripheral IV Insertion Adult [OM.PC] Stat Oth 02/24/18 13:45 Ordered Medication Orders Sodium Chloride (Saline Flush) 10 ml FLUSH ASDIRECTED PRN PRN Reason: Keep Vein Open Last Admin: 02/24/18 13:52 Dose: 10 ml Assessment/Plan Comment:: This is a 77 Y/O F admitted with Acute Hypoxia and Rt Knee pain with generalized weakness Impression and Plan: 1. Acute Hypoxia: This is likely from small Peripheral Pulmonary Emboli Bilaterally noted by CT chest with contrst and also noted to have bands of Atelectasis in both lower lobes of the lung -Will continue Xeralto at 15 mg 2 times a day -Will give IS and avise pt to use IS evaery hour -Will continue NC oxygen and try to wean as tolerated 2. Left LE DVT: pt was diagnosed with Left LE DVT diagnosed on 02/22/18 by [facility] -She was started on Xeralto 15 mg 2 times a day and will continue 3. RT LE Cellulitis: Pt was seen in [place] ED on 02/21/18 with with erythema of the incision site of the Left LE -She is now on clindamycin 150 mg 4 times a day and will continue for a week -At this time I have examined her incision site and there is no erythema but warmer than Rt LE and will continue abx 4. Rt LE pain: Pt has signifiant arthritis of Rt Knee and will likely have total knee replacement of the right side -She is also favoring Rt knee and placing more weight on right side after the left Knee Total knee replacement -Will continue Oxycodone 5. Hypothyroidism: Pt has history of Hypothyroidism and no on levothyroxine, but CT chest with contrast showed enlarge right lobe of thyroid, need further evaluation by Ultrasound and that can be done as out pt 6. CKD stage III: This is likely from Hypertension and base line creatinine 1.1 -1.4 mg/dl -Pt had contrast exposure today ( 02/24/18) and will continue NS at 50 ml/hr -Will give IV lasix in AM -Avoid Hypotension -BMP in AM 7. DVT prophylaxis: Continue Xeralto 8. GI prophylaxis: continue Protonix 9. Code Status: Full code
[2018-02-24] MEDS ORDERED: Docusate Sodium 100 MG Cap PO PRN (19:28)
[2018-02-24] MEDS ORDERED: Sodium Chloride 0.9% 1,000 ML IV SCH (19:45)
[2018-02-24] MEDS ORDERED: Albuterol 0.083% 2.5 MG/3 ML Neb Soln NEB PRN (19:46)
[2018-02-24] MEDS ORDERED: HYDROmorphone 1 MG/ML Syringe IVPUSH PRN (19:47)
[2018-02-24] MEDS: oxyCODONE 5 MG Tab PO PRN (20:58)
[2018-02-24] MEDS: Acetaminophen 325 MG Tab PO PRN (21:00)
[2018-02-24] MEDS: Oxybutynin 5 MG Tab.ER PO SCH (21:01)
[2018-02-24] MEDS: RIVAROXABAN 10 MG PO SCH (21:03)
[2018-02-24] MEDS: Potassium Chloride 10 MEQ Tab.ER PO SCH (21:04)
[2018-02-24] MEDS: Clindamycin HCl 150 MG Cap PO SCH (21:04)
[2018-02-24] MEDS: Rosuvastatin 10 MG Tab PO SCH (21:05)
[2018-02-25] MEDS: Acetaminophen 325 MG Tab PO PRN ×2 (04:22→22:44)
[2018-02-25] MEDS: oxyCODONE 5 MG Tab PO PRN ×4 (04:22→22:44)
[2018-02-25 07:10] LABS: ANION GAP 11.8
[2018-02-25] MEDS: Clindamycin HCl 150 MG Cap PO SCH ×4 (08:34→20:49)
[2018-02-25] MEDS: RIVAROXABAN 10 MG PO SCH ×2 (08:34→20:48)
[2018-02-25] MEDS: Potassium Chloride 10 MEQ Tab.ER PO SCH ×3 (08:34→17:49)
[2018-02-25] MEDS: Calcium Carbonate/Vitamin D3 1250 MG-200 Unit Tab PO SCH (08:34)
[2018-02-25] MEDS ORDERED: Bumetanide 1 MG Tab PO SCH (09:00)
[2018-02-25] MEDS ORDERED: FOLIC ACID 400 MCG PO SCH (09:00)
[2018-02-25] MEDS ORDERED: Bumetanide 1 MG/4 ML MDV IVPUSH ONE ×2 (09:40→14:39)
--- NOTE | 2018-02-25 10:27 | PCM.PN ---
- General Info Date of Service: 02/25/18 Admission Dx/Problem (Free Text): Admitted with: Right Knee Pain, acute Hypoxia and generalized weakness Subjective Update: Pt was seen in room, she is doing much better today, Rt Knee pain is much better , ambulating to bath room, appetite is good, still on NC oxygen Functional Status: Reports: Pain Controlled, Tolerating Diet, Ambulating, Urinating - Review of Systems General: Reports: Weakness, Appetite (good). Denies: Fever, Chills HEENT: Denies: Ear Pain, Sinus Congestion, Sore Throat, Visual Changes Pulmonary: Reports: Shortness of Breath. Denies: Cough, Sputum, Wheezing Cardiovascular: Denies: Chest Pain, Dyspnea on Exertion, Edema, Lightheadedness Gastrointestinal: Denies: Abdominal Pain, Diarrhea, Nausea, Vomiting Genitourinary: Denies: Dysuria, Burning, Urgency, Flank Pain Musculoskeletal: Reports: Joint Pain (rt knee). Denies: Neck Pain, Shoulder Pain, Hand Pain, Back Pain, Leg Pain Skin: Denies: Jaundice, Bruising, Pruritis, Rash Neurological: Denies: Confusion, Tingling, Tremors Psychiatric: Denies: Confusion, Anxiety - Patient Data Vitals - Most Recent: Last Vital Signs Temp 36.4 C 02/25/18 07:55 Pulse 71 02/25/18 07:55 Resp 20 02/25/18 07:55 BP 97/53 L 02/25/18 07:55 Pulse Ox 95 02/25/18 07:55 Weight - Most Recent: 90.718 kg I&O - Last 24 Hours: Intake & Output 02/24/18 02/25/18 02/25/18 22:59 06:59 14:59 Intake Total 448 567 325 Output Total 800 900 Balance -352 -333 325 Lab Results Last 24 Hours: Laboratory Results - last 24 hr 02/24/18 02/24/18 02/24/18 Range/Units 13:58 13:58 13:58 WBC 17.6 H (5.0-10.0) 10^3/uL RBC 3.82 L (4.2-5.4) 10^6/uL Hgb 11.7 L (12.0-16.0) g/dL Hct 35.7 L (37.0-47.0) % MCV 93.5 (80-100) fL MCH 30.6 (27.0-34.0) pg MCHC 32.8 L (33.0-35.0) g/dL Plt Count 464 H (150-450) 10^3/uL Neut % (Auto) 75.9 H (42.2-75.2) % Lymph % (Auto) 10.8 L (20.5-50.1) % Grand % (Auto) 12.6 H (2-8) % Eos % (Auto) 0.5 L (1.0-3.0) % Baso % (Auto) 0.2 (0.0-1.0) % PT (9.0-12.0) SEC INR (0.9-1.2) APTT (22.0-34.0) SEC Sodium 136 (135-145) mmol/L Potassium 4.0 (3.6-5.0) mmol/L Chloride 99 L (101-111) mmol/L Carbon Dioxide 26.0 (21.0-31.0) mmol/L Anion Gap 15.0 BUN 12 (7-18) mg/dL Creatinine 1.1 (0.6-1.3) mg/dL Est Cr Clr Drug Dosing 36.21 mL/min Estimated GFR (MDRD) 48 BUN/Creatinine Ratio 10.90 Glucose 112 H (74-105) mg/dL Lactic Acid (0.5-2.2) mmol/L Calcium 9.1 (8.4-10.2) mg/dl Total Bilirubin 1.0 (0.2-1.0) mg/dL AST 21 (10-42) IU/L ALT 9 L (10-60) IU/L Alkaline Phosphatase 93 (42-121) IU/L B-Natriuretic Peptide 109 H (0-100) pg/ml Total Protein 7.2 (6.7-8.2) g/dl Albumin 3.6 (3.2-5.5) g/dl Globulin 3.6 Albumin/Globulin Ratio 1.00 Amylase 25 L (28-100) U/L Lipase 16 L (22-51) U/L Urine Color (YELLOW) Urine Appearance (CLEAR) Urine pH (5.0-9.0) Ur Specific [place] (1.005-1.030) Urine Protein (NEGATIVE) Urine Glucose (UA) (NEGATIVE) Urine Ketones (NEGATIVE) Urine Occult Blood (NEGATIVE) Urine Nitrite (NEGATIVE) Urine Bilirubin (NEGATIVE) Urine Urobilinogen (0.2-1.0) mg/dL Ur Leukocyte Esterase (NEGATIVE) Urine RBC /HPF Urine WBC (0-5/HPF) /HPF Ur Epithelial Cells /HPF Urine Bacteria (0-FEW/HPF) /HPF Urine Mucus /LPF Urine Other 02/24/18 02/24/18 02/24/18 Range/Units 14:47 14:48 16:14 WBC (5.0-10.0) 10^3/uL RBC (4.2-5.4) 10^6/uL Hgb (12.0-16.0) g/dL Hct (37.0-47.0) % MCV (80-100) fL MCH (27.0-34.0) pg MCHC (33.0-35.0) g/dL Plt Count (150-450) 10^3/uL Neut % (Auto) (42.2-75.2) % Lymph % (Auto) (20.5-50.1) % Grand % (Auto) (2-8) % Eos % (Auto) (1.0-3.0) % Baso % (Auto) (0.0-1.0) % PT 14.4 H (9.0-12.0) SEC INR 1.5 H (0.9-1.2) APTT 44.2 H (22.0-34.0) SEC Sodium (135-145) mmol/L Potassium (3.6-5.0) mmol/L Chloride (101-111) mmol/L Carbon Dioxide (21.0-31.0) mmol/L Anion Gap BUN (7-18) mg/dL Creatinine (0.6-1.3) mg/dL Est Cr Clr Drug Dosing mL/min Estimated GFR (MDRD) BUN/Creatinine Ratio Glucose (74-105) mg/dL Lactic Acid 1.0 (0.5-2.2) mmol/L Calcium (8.4-10.2) mg/dl Total Bilirubin (0.2-1.0) mg/dL AST (10-42) IU/L ALT (10-60) IU/L Alkaline Phosphatase (42-121) IU/L B-Natriuretic Peptide (0-100) pg/ml Total Protein (6.7-8.2) g/dl Albumin (3.2-5.5) g/dl Globulin Albumin/Globulin Ratio Amylase (28-100) U/L Lipase (22-51) U/L Urine Color Yellow (YELLOW) Urine Appearance Slightly cloudy (CLEAR) Urine pH 5.5 (5.0-9.0) Ur Specific [place] 1.010 (1.005-1.030) Urine Protein Negative (NEGATIVE) Urine Glucose (UA) Negative (NEGATIVE) Urine Ketones Negative (NEGATIVE) Urine Occult Blood Trace-lysed H (NEGATIVE) Urine Nitrite Negative (NEGATIVE) Urine Bilirubin Negative (NEGATIVE) Urine Urobilinogen 0.2 (0.2-1.0) mg/dL Ur Leukocyte Esterase Moderate H (NEGATIVE) Urine RBC 0-5 /HPF Urine WBC 5-10 H (0-5/HPF) /HPF Ur Epithelial Cells Many H /HPF Urine Bacteria Few (0-FEW/HPF) /HPF Urine Mucus Few H /LPF Urine Other See note 02/25/18 Range/Units 06:24 WBC (5.0-10.0) 10^3/uL RBC (4.2-5.4) 10^6/uL Hgb (12.0-16.0) g/dL Hct (37.0-47.0) % MCV (80-100) fL MCH (27.0-34.0) pg MCHC (33.0-35.0) g/dL Plt Count (150-450) 10^3/uL Neut % (Auto) (42.2-75.2) % Lymph % (Auto) (20.5-50.1) % Grand % (Auto) (2-8) % Eos % (Auto) (1.0-3.0) % Baso % (Auto) (0.0-1.0) % PT (9.0-12.0) SEC INR (0.9-1.2) APTT (22.0-34.0) SEC Sodium 135 (135-145) mmol/L Potassium 3.8 (3.6-5.0) mmol/L Chloride 100 L (101-111) mmol/L Carbon Dioxide 27.0 (21.0-31.0) mmol/L Anion Gap 11.8 BUN 13 (7-18) mg/dL Creatinine 1.0 (0.6-1.3) mg/dL Est Cr Clr Drug Dosing 38.97 mL/min Estimated GFR (MDRD) 54 BUN/Creatinine Ratio Glucose 111 H (74-105) mg/dL Lactic Acid (0.5-2.2) mmol/L Calcium 8.5 (8.4-10.2) mg/dl Total Bilirubin (0.2-1.0) mg/dL AST (10-42) IU/L ALT (10-60) IU/L Alkaline Phosphatase (42-121) IU/L B-Natriuretic Peptide (0-100) pg/ml Total Protein (6.7-8.2) g/dl Albumin (3.2-5.5) g/dl Globulin Albumin/Globulin Ratio Amylase (28-100) U/L Lipase (22-51) U/L Urine Color (YELLOW) Urine Appearance (CLEAR) Urine pH (5.0-9.0) Ur Specific [place] (1.005-1.030) Urine Protein (NEGATIVE) Urine Glucose (UA) (NEGATIVE) Urine Ketones (NEGATIVE) Urine Occult Blood (NEGATIVE) Urine Nitrite (NEGATIVE) Urine Bilirubin (NEGATIVE) Urine Urobilinogen (0.2-1.0) mg/dL Ur Leukocyte Esterase (NEGATIVE) Urine RBC /HPF Urine WBC (0-5/HPF) /HPF Ur Epithelial Cells /HPF Urine Bacteria (0-FEW/HPF) /HPF Urine Mucus /LPF Urine Other Luis Antonio Results Last 24 Hours: Microbiology 02/24/18 16:14 Anaerobic Blood Culture - Final Blood - Venous - Lab Draw Med Orders - Current: Current Medications Acetaminophen (Tylenol) 650 mg PO Q4H PRN PRN Reason: Pain (mild 1-3 )/fever Last Admin: 02/25/18 04:22 Dose: 650 mg Albuterol (Proventil Neb Soln) 2.5 mg NEB Q4HRRT PRN PRN Reason: Shortness of Breath Bumetanide (Bumex) 1 mg PO Q48H [facility] Calcium Carbonate (Calcium Carbonate/Vitamin D 1250 Mg-200 Unit) 1 tab PO DAILY [facility] Last Admin: 02/25/18 08:34 Dose: 1 tab Clindamycin HCl (Cleocin) 150 mg PO QID [facility] Last Admin: 02/25/18 08:34 Dose: 150 mg Docusate Sodium (Colace) 100 mg PO DAILY PRN PRN Reason: Constipation Hydromorphone HCl (Dilaudid) 1 mg IVPUSH Q12H PRN PRN Reason: Pain Sodium Chloride (Normal Saline) 1,000 mls @ 50 mls/hr IV ASDIRECTED [facility] Last Admin: 02/24/18 19:45 Dose: 50 mls/hr Magnesium Oxide (Magnesium Oxide) 250 mg PO 1400 [facility] Methylcellulose (Citrucel) 500 mg PO TID [facility] Last Admin: 02/25/18 08:34 Dose: 500 mg (Biotin [Biotin] 1 (Tab)Own Med) 1 tab PO BEDTIME [facility] Last Admin: 02/24/18 21:05 Dose: Not Given (Folic Acid [Folic Acid] 400 Mcg) Own Med 400 mcg PO DAILY [facility] Oxybutynin Chloride (Oxybutynin Er) 10 mg PO BEDTIME [facility] Last Admin: 02/24/18 21:01 Dose: 10 mg Oxycodone HCl (Oxycodone) 5 mg PO Q4H PRN PRN Reason: Pain Last Admin: 02/25/18 04:22 Dose: 5 mg Potassium Chloride (Klor-Con 10) 10 meq PO TIDMEALS [facility] Last Admin: 02/25/18 08:34 Dose: 10 meq Rivaroxaban (Xarelto) 15 mg PO BID [facility] Stop: 03/16/18 09:01 Last Admin: 02/25/18 08:34 Dose: 15 mg Rosuvastatin Calcium (Crestor) 20 mg PO BEDTIME [facility] Last Admin: 02/24/18 21:05 Dose: 20 mg Sodium Chloride (Saline Flush) 10 ml FLUSH ASDIRECTED PRN PRN Reason: Keep Vein Open Last Admin: 02/24/18 13:52 Dose: 10 ml Discontinued Medications Bumetanide (Bumex) 1 mg PO Q48H [facility] Bumetanide (Bumex) 1 mg IVPUSH ONETIME ONE Stop: 02/25/18 09:41 Last Admin: 02/25/18 10:15 Dose: 1 mg Hydromorphone HCl (Dilaudid) 1 mg IVPUSH ONETIME ONE Stop: 02/24/18 13:48 Last Admin: 02/24/18 13:53 Dose: 1 mg Hydromorphone HCl (Dilaudid) 1 mg IVPUSH ONETIME ONE Stop: 02/24/18 17:13 Last Admin: 02/24/18 17:27 Dose: 1 mg Sodium Chloride (Normal Saline) 1,000 mls @ 500 mls/hr IV .BOLUS ONE Stop: 02/24/18 17:22 Last Admin: 02/24/18 15:27 Dose: 500 mls/hr Iopamidol (Isovue-370 (76%)) 100 ml IVPUSH ONETIME ONE Stop: 02/24/18 15:24 Last Admin: 02/24/18 15:36 Dose: 100 ml Ondansetron HCl (Zofran) 4 mg IV ONETIME ONE Stop: 02/24/18 13:48 Last Admin: 02/24/18 13:52 Dose: 4 mg - Exam Quality Assessment: Supplemental Oxygen, DVT Prophylaxis General: Alert, Oriented, Cooperative HEENT: Pupils Equal, Pupils Reactive, EOMI, Mucous Membr. Moist/[place] Neck: Supple, No JVD, Thyromegaly Lungs: Clear to Auscultation, Normal Respiratory Effort. No: Crackles, Wheezing Cardiovascular: Regular Rate, Regular Rhythm, Murmurs GI/Abdominal Exam: Normal Bowel Sounds, Soft, Non-Tender, No Distention. No: Guarding, Rebound (Female) Exam: Deferred Back Exam: Normal Inspection, Full Range of Motion Extremities: Normal Inspection, Pedal Edema, Other (pain in rt knee) Skin: Warm, Dry, Intact Neurological: No New Focal Deficit Psy/Mental Status: Alert, Normal Affect, Normal Mood - Problem List & Annotations (1) Hypoxia SNOMED Code(s): 840371941 Code(s): R09.02 - HYPOXEMIA Status: Acute Current Visit: No (2) Post op infection SNOMED Code(s): 05953511 Code(s): T81.4XXA - INFECTION FOLLOWING A PROCEDURE, INITIAL ENCOUNTER Status: Acute Current Visit: No Qualifiers: Encounter type: initial encounter Qualified Code(s): T81.4XXA - Infection following a procedure, initial encounter (3) Pulmonary emboli SNOMED Code(s): 23364377 Code(s): I26.99 - OTHER PULMONARY EMBOLISM WITHOUT ACUTE COR PULMONALE Status: Acute Current Visit: No Qualifiers: Pulmonary embolism type: other Chronicity: acute Acute cor pulmonale presence: without acute cor pulmonale Qualified Code(s): I26.99 - Other pulmonary embolism without acute cor pulmonale - Problem List Review Problem List Initiated/Reviewed/Updated: Yes - My Orders Last 24 Hours: My Active Orders 02/24/18 19:28 Patient Status [ADT] Routine Ambulate [RC] ASDIRECTED Up With Assistance [RC] ASDIRECTED Up to Chair [RC] ASDIRECTED Vital Signs [RC] 04,08,12,16,20,00 Acetaminophen [Tylenol] 650 mg PO Q4H PRN Docusate Sodium [Colace] 100 mg PO DAILY PRN DVT/VTE Prophylaxis Reflex [OM.PC] Routine Resuscitation Status Routine 02/24/18 19:30 Oxygen Therapy [RC] CONTINUOUS Pulse Oximetry [RC] PRN 02/24/18 19:31 Antiembolic Devices [RC] 08,20 VTE/DVT Education [RC] PER UNIT ROUTINE 02/24/18 19:42 oxyCODONE 5 mg PO Q4H PRN 02/24/18 19:45 Sodium Chloride 0.9% [Normal Saline] 1,000 ml IV ASDIRECTED 02/24/18 19:46 Albuterol [Proventil Neb Soln] 2.5 mg NEB Q4HRRT PRN 02/24/18 19:47 RT Aerosol Therapy [RC] ASDIRECTED HYDROmorphone [Dilaudid] 1 mg IVPUSH Q12H PRN 02/24/18 20:00 Potassium Chloride [Klor-Con 10] 10 meq PO TIDMEALS 02/24/18 21:00 Biotin [Biotin] 1 tab PO BEDTIME Clindamycin HCl [Cleocin] 150 mg PO QID Methylcellulose [Citrucel] 500 mg PO TID Oxybutynin [Oxybutynin ER] 10 mg PO BEDTIME Rivaroxaban [Xarelto] 15 mg PO BID Rosuvastatin [Crestor] 20 mg PO BEDTIME 02/24/18 Dinner Regular Diet [DIET] 02/25/18 09:00 Calcium Carbonate/Vitamin D3 [Calcium Carbonate/Vitamin D 1250 MG-200 Unit] 1 tab PO DAILY Folic Acid [Folic Acid] 400 mcg PO DAILY 02/25/18 09:38 OT Evaluation and Treatment [CONS] Routine PT Evaluation and Treatment [CONS] Routine 02/25/18 14:00 Magnesium Oxide 250 mg PO 1400 02/26/18 09:00 Bumetanide [Bumex] 1 mg PO Q48H - Plan Plan:: This is a 77 Y/O F admitted with Acute Hypoxia and Rt Knee pain with generalized weakness Impression and Plan: 1. Acute Hypoxia: This is likely from small Peripheral Pulmonary Emboli Bilaterally noted by CT chest with contrst and also noted to have bands of Atelectasis in both lower lobes of the lung -Will continue Xeralto at 15 mg 2 times a day -Advise to continue to use IS and avise pt to use IS every hour -Will continue [place] oxygen and try to wean off as tolerated -Will continue Albuterol nebs as needed 2. Left LE DVT: pt was diagnosed with Left LE DVT diagnosed on 02/22/18 by U/S -She is on on Xeralto 15 mg 2 times a day and will continue 3. RT LE Cellulitis: Pt was seen in [place] ED on 02/21/18 with with erythema of the incision site of the Left LE -She is now on clindamycin 150 mg 4 times a day and will continue for a week -At this time I have examined her incision site and there is no erythema but warmer than Rt LE and will continue abx 4. Rt LE pain: Pt has signifiant arthritis of Rt Knee and will likely have total knee replacement of the right side -She is also favoring Rt knee and placing more weight on right side after the left Knee Total knee replacement -Will continue Oxycodone -Will give Dialaudid for Breakthrough pain -I have palced PT/OT consult and will be seen on Monday (02/27/18) 5. Hypothyroidism: Pt has history of Hypothyroidism and no on levothyroxine, but CT chest with contrast showed enlarge right lobe of thyroid, need further evaluation by Ultrasound and that can be done as out pt ( I have discussed the finding with pt and daughter and also advise them to discuss with PMD once discharge) 6. CKD stage III: This is likely from Hypertension and base line creatinine 1.1 -1.4 mg/dl -Pt had contrast exposure on ( 02/24/18) and will stop NS [ was at 50 ml/hr] -Will give IV Bumex 1 mg X 1 dose -Will continue oral Bumex 1 mg QOD -Continue I/O recording -Avoid Hypotension -BMP in AM 7. DVT prophylaxis: Continue Xeralto 8. GI prophylaxis: continue Protonix 9. Code Status: Full code
[2018-02-25] MEDS: Rosuvastatin 10 MG Tab PO SCH (20:50)
[2018-02-25] MEDS: Oxybutynin 5 MG Tab.ER PO SCH (20:50)
[2018-02-26] MEDS: oxyCODONE 5 MG Tab PO PRN ×2 (04:35→21:51)
[2018-02-26] MEDS: Acetaminophen 325 MG Tab PO PRN ×2 (04:36→21:05)
[2018-02-26] MEDS: Pantoprazole 40 MG Tab.CR PO SCH (06:33)
[2018-02-26 07:06] LABS: ANION GAP 12.9
[2018-02-26] MEDS: Bumetanide 1 MG Tab PO SCH (08:32)
[2018-02-26] MEDS: Clindamycin HCl 150 MG Cap PO SCH ×4 (08:32→21:03)
[2018-02-26] MEDS: Potassium Chloride 10 MEQ Tab.ER PO SCH ×3 (08:32→17:49)
[2018-02-26] MEDS: Calcium Carbonate/Vitamin D3 1250 MG-200 Unit Tab PO SCH (08:32)
[2018-02-26] MEDS: RIVAROXABAN 10 MG PO SCH ×2 (08:32→21:04)
--- NOTE | 2018-02-26 11:44 | PCM.PN ---
- General Info Date of Service: 02/26/18 Admission Dx/Problem (Free Text): Admitted with: Right Knee Pain, acute Hypoxia and generalized weakness Subjective Update: Pt was seen in room, she is doing much better today, Rt Knee pain is much better , ambulating appetite is good, still on [place] oxygen but more during sleep than while walking Functional Status: Reports: Pain Controlled, Tolerating Diet, Ambulating, Urinating - Review of Systems General: Reports: Appetite (goog). Denies: Fever, Chills HEENT: Denies: Headaches, Sinus Congestion, Sore Throat, Visual Changes Pulmonary: Denies: Shortness of Breath, Cough, Sputum, Wheezing Cardiovascular: Denies: Chest Pain, Dyspnea on Exertion, Lightheadedness Gastrointestinal: Denies: Abdominal Pain, Diarrhea, Nausea, Vomiting Genitourinary: Denies: Dysuria, Frequency, Burning, Urgency, Flank Pain Musculoskeletal: Reports: Other (Right knee pain) Skin: Denies: Cyanosis, Bruising, Pruritis, Rash Neurological: Denies: Confusion, Numbness, Tingling, Tremors Psychiatric: Denies: Confusion, Anxiety - Patient Data Vitals - Most Recent: Last Vital Signs Temp 36.1 C 02/26/18 11:31 Pulse 71 02/26/18 11:31 Resp 20 02/26/18 11:31 BP 114/51 L 02/26/18 11:31 Pulse Ox 99 02/26/18 11:31 Weight - Most Recent: 92.261 kg I&O - Last 24 Hours: Intake & Output 02/25/18 02/26/18 02/26/18 22:59 06:59 14:59 Intake Total 865 530 Output Total 1000 1000 250 Balance -135 -1000 280 Lab Results Last 24 Hours: Laboratory Results - last 24 hr 02/25/18 02/26/18 Range/Units 14:53 06:03 Sodium 137 (135-145) mmol/L Potassium 3.9 (3.6-5.0) mmol/L Chloride 99 L (101-111) mmol/L Carbon Dioxide 29.0 (21.0-31.0) mmol/L Anion Gap 12.9 BUN 15 (7-18) mg/dL Creatinine 1.0 (0.6-1.3) mg/dL Est Cr Clr Drug Dosing 38.97 mL/min Estimated GFR (MDRD) 54 Glucose 100 (74-105) mg/dL Calcium 8.4 (8.4-10.2) mg/dl Troponin I < 0.02 (0.00-0.02) ng/ml Luis Antonio Results Last 24 Hours: Microbiology 02/24/18 16:14 Aerobic Blood Culture - Preliminary Blood - Venous - Lab Draw NO GROWTH AFTER 1 DAY Anaerobic Blood Culture - Final Med Orders - Current: Current Medications Acetaminophen (Tylenol) 650 mg PO Q4H PRN PRN Reason: Pain (mild 1-3 )/fever Last Admin: 02/26/18 04:36 Dose: 650 mg Albuterol (Proventil Neb Soln) 2.5 mg NEB Q4HRRT PRN PRN Reason: Shortness of Breath Bumetanide (Bumex) 1 mg PO Q48H [facility] Last Admin: 02/26/18 08:32 Dose: 1 mg Calcium Carbonate (Calcium Carbonate/Vitamin D 1250 Mg-200 Unit) 1 tab PO DAILY [facility] Last Admin: 02/26/18 08:32 Dose: 1 tab Clindamycin HCl (Cleocin) 150 mg PO QID [facility] Last Admin: 02/26/18 08:32 Dose: 150 mg Docusate Sodium (Colace) 100 mg PO DAILY PRN PRN Reason: Constipation Hydromorphone HCl (Dilaudid) 1 mg IVPUSH Q12H PRN PRN Reason: Pain Magnesium Oxide (Magnesium Oxide) 250 mg PO 1400 [facility] Last Admin: 02/25/18 14:02 Dose: 250 mg Methylcellulose (Citrucel) 500 mg PO TID [facility] Last Admin: 02/26/18 08:32 Dose: 500 mg Oxybutynin Chloride (Oxybutynin Er) 10 mg PO BEDTIME [facility] Last Admin: 02/25/18 20:50 Dose: 10 mg Oxycodone HCl (Oxycodone) 5 mg PO Q4H PRN PRN Reason: Pain Last Admin: 02/26/18 04:35 Dose: 5 mg Pantoprazole Sodium (Protonix) 40 mg PO ACBREAKFAST [facility] Last Admin: 02/26/18 06:33 Dose: 40 mg Potassium Chloride (Klor-Con 10) 10 meq PO TIDMEALS [facility] Last Admin: 02/26/18 08:32 Dose: 10 meq Rivaroxaban (Xarelto) 15 mg PO BID [facility] Stop: 03/16/18 09:01 Last Admin: 02/26/18 08:32 Dose: 15 mg Rosuvastatin Calcium (Crestor) 20 mg PO BEDTIME [facility] Last Admin: 02/25/18 20:50 Dose: 20 mg Sodium Chloride (Saline Flush) 10 ml FLUSH ASDIRECTED PRN PRN Reason: Keep Vein Open Last Admin: 02/24/18 13:52 Dose: 10 ml Discontinued Medications Bumetanide (Bumex) 1 mg PO Q48H [facility] Bumetanide (Bumex) 1 mg IVPUSH ONETIME ONE Stop: 02/25/18 09:41 Last Admin: 02/25/18 10:15 Dose: 1 mg Bumetanide (Bumex) 1 mg IVPUSH ONETIME ONE Stop: 02/25/18 14:40 Last Admin: 02/25/18 14:53 Dose: 1 mg Hydromorphone HCl (Dilaudid) 1 mg IVPUSH ONETIME ONE Stop: 02/24/18 13:48 Last Admin: 02/24/18 13:53 Dose: 1 mg Hydromorphone HCl (Dilaudid) 1 mg IVPUSH ONETIME ONE Stop: 02/24/18 17:13 Last Admin: 02/24/18 17:27 Dose: 1 mg Sodium Chloride (Normal Saline) 1,000 mls @ 500 mls/hr IV .BOLUS ONE Stop: 02/24/18 17:22 Last Admin: 02/24/18 15:27 Dose: 500 mls/hr Sodium Chloride (Normal Saline) 1,000 mls @ 50 mls/hr IV ASDIRECTED [facility] Last Admin: 02/24/18 19:45 Dose: 50 mls/hr Iopamidol (Isovue-370 (76%)) 100 ml IVPUSH ONETIME ONE Stop: 02/24/18 15:24 Last Admin: 02/24/18 15:36 Dose: 100 ml (Biotin [Biotin] 1 (Tab)Own Med) 1 tab PO BEDTIME [facility] Last Admin: 02/24/18 21:05 Dose: Not Given (Folic Acid [Folic Acid] 400 Mcg) Own Med 400 mcg PO DAILY [facility] Last Admin: 02/25/18 10:31 Dose: Not Given Ondansetron HCl (Zofran) 4 mg IV ONETIME ONE Stop: 02/24/18 13:48 Last Admin: 02/24/18 13:52 Dose: 4 mg - Exam Quality Assessment: Supplemental Oxygen, DVT Prophylaxis. No: Urine Catheter General: Alert, Oriented, Cooperative, No Acute Distress HEENT: Pupils Equal, EOMI, Mucous Membr. Moist/[place] Neck: Supple, No JVD, No Thyromegaly Lungs: Clear to Auscultation, Normal Respiratory Effort. No: Crackles, Wheezing Cardiovascular: Regular Rate, Regular Rhythm, Murmurs GI/Abdominal Exam: Normal Bowel Sounds, Non-Tender. No: Guarding, Rebound (Female) Exam: Deferred Back Exam: Normal Inspection, Full Range of Motion Extremities: Normal Inspection, Pedal Edema Skin: Warm, Dry, Intact Neurological: No New Focal Deficit Psy/Mental Status: Alert, Normal Affect, Normal Mood - Problem List & Annotations (1) Hypoxia SNOMED Code(s): 536325219 Code(s): R09.02 - HYPOXEMIA Status: Acute Current Visit: No (2) Post op infection SNOMED Code(s): 95990597 Code(s): T81.4XXA - INFECTION FOLLOWING A PROCEDURE, INITIAL ENCOUNTER Status: Acute Current Visit: No Qualifiers: Encounter type: initial encounter Qualified Code(s): T81.4XXA - Infection following a procedure, initial encounter (3) Pulmonary emboli SNOMED Code(s): 00316794 Code(s): I26.99 - OTHER PULMONARY EMBOLISM WITHOUT ACUTE COR PULMONALE Status: Acute Current Visit: No Qualifiers: Pulmonary embolism type: other Chronicity: acute Acute cor pulmonale presence: without acute cor pulmonale Qualified Code(s): I26.99 - Other pulmonary embolism without acute cor pulmonale - Problem List Review Problem List Initiated/Reviewed/Updated: Yes - My Orders Last 24 Hours: My Active Orders 02/25/18 14:00 Magnesium Oxide 250 mg PO 1400 02/26/18 06:00 Pantoprazole [ProTONIX] 40 mg PO ACBREAKFAST 02/26/18 09:00 Bumetanide [Bumex] 1 mg PO Q48H - Plan Plan:: This is a 77 Y/O F admitted with Acute Hypoxia and Rt Knee pain with generalized weakness Impression and Plan: 1. Acute Hypoxia: This is likely from small Peripheral Pulmonary Emboli Bilaterally noted by CT of chest with contrast and also noted to have bands of Atelectasis in both lower lobes of the lung -Will continue Xeralto at 15 mg 2 times a day -Advise to continue to use IS and advise pt to use IS every hour -Will continue [place] oxygen and try to wean off as tolerated -Will continue Albuterol nebs as needed 2. Left LE DVT: pt was diagnosed with Left LE DVT diagnosed on 02/22/18 by U/S -She is on on Xeralto 15 mg 2 times a day and will continue 3. RT LE Cellulitis: Pt was seen in [place] ED on 02/21/18 with with erythema of the incision site of the Left LE -She is now on clindamycin 150 mg 4 times a day and will continue for a week -At this time I have examined her incision site and there is no erythema but warmer than Rt LE and will continue abx 4. Rt LE pain: Pt has signifiant arthritis of Rt Knee and will likely have total knee replacement of the right side -She is also favoring Rt knee and placing more weight on right side after the left Knee Total knee replacement -Will continue Oxycodone -Will give Dialaudid for Breakthrough pain -I have palced PT/OT consult and will be seen on Monday (02/27/18) 5. Hypothyroidism: Pt has history of Hypothyroidism and no on levothyroxine, but CT chest with contrast showed enlarge right lobe of thyroid, need further evaluation by Ultrasound and that can be done as out pt ( I have discussed the finding with pt and daughter and also advise them to discuss with PMD once discharge) 6. CKD stage III: This is likely from Hypertension and base line creatinine 1.1 -1.4 mg/dl -Pt had contrast exposure on ( 02/24/18) and will stop NS [ was at 50 ml/hr] -Will give IV Bumex 1 mg X 1 dose -Will continue oral Bumex 1 mg QOD -Continue I/O recording -Avoid Hypotension -BMP in AM 7. Sleep Apnea: Pt has her o2 sat drop during the sleep and that wakes her up and also cauase chest discomfort, I did chect Troponin and it was normal, she will need sleep study and may need CPAP or supplemental at night. -will do spot 02 check tonight 8. DVT prophylaxis: Continue Xeralto 9. GI prophylaxis: continue Protonix 10. Code Status: Full code
[2018-02-26] MEDS: Rosuvastatin 10 MG Tab PO SCH (21:03)
[2018-02-26] MEDS: Oxybutynin 5 MG Tab.ER PO SCH (21:04)
[2018-02-27] MEDS: Acetaminophen 325 MG Tab PO PRN ×2 (04:51→22:45)
[2018-02-27] MEDS: Pantoprazole 40 MG Tab.CR PO SCH (05:00)
[2018-02-27] MEDS: Potassium Chloride 10 MEQ Tab.ER PO SCH ×3 (08:09→17:26)
[2018-02-27] MEDS: Clindamycin HCl 150 MG Cap PO SCH ×4 (08:09→20:49)
[2018-02-27] MEDS: Calcium Carbonate/Vitamin D3 1250 MG-200 Unit Tab PO SCH (08:09)
[2018-02-27] MEDS: RIVAROXABAN 10 MG PO SCH ×2 (08:10→20:50)
--- NOTE | 2018-02-27 10:15 | PCM.PN ---
- General Info Date of Service: 02/27/18 Admission Dx/Problem (Free Text): Admitted with: Right Knee Pain, acute Hypoxia and generalized weakness Subjective Update: Pt is doing much better today, Rt Knee pain is much better, ambulating well, still on [place] oxygen last night but off during the day Functional Status: Reports: Pain Controlled - Review of Systems General: Denies: Fever Pulmonary: Denies: Shortness of Breath Cardiovascular: Denies: Chest Pain Gastrointestinal: Denies: Abdominal Pain - Patient Data Vitals - Most Recent: Last Vital Signs Temp 36.1 C 02/27/18 08:00 Pulse 72 02/27/18 08:00 Resp 20 02/27/18 08:00 BP 136/64 02/27/18 08:00 Pulse Ox 98 02/27/18 08:00 Weight - Most Recent: 90.31 kg I&O - Last 24 Hours: Intake & Output 02/26/18 02/27/18 02/27/18 22:59 06:59 14:59 Intake Total 200 448 260 Output Total 500 1600 Balance -300 -1152 260 Luis Antonio Results Last 24 Hours: Microbiology 02/24/18 16:14 Aerobic Blood Culture - Preliminary Blood - Venous - Lab Draw NO GROWTH AFTER 2 DAYS Anaerobic Blood Culture - Final Med Orders - Current: Current Medications Acetaminophen (Tylenol) 650 mg PO Q4H PRN PRN Reason: Pain (mild 1-3 )/fever Last Admin: 02/27/18 04:51 Dose: 650 mg Albuterol (Proventil Neb Soln) 2.5 mg NEB Q4HRRT PRN PRN Reason: Shortness of Breath Bumetanide (Bumex) 1 mg PO Q48H [facility] Last Admin: 02/26/18 08:32 Dose: 1 mg Calcium Carbonate (Calcium Carbonate/Vitamin D 1250 Mg-200 Unit) 1 tab PO DAILY [facility] Last Admin: 02/27/18 08:09 Dose: 1 tab Clindamycin HCl (Cleocin) 150 mg PO QID [facility] Last Admin: 02/27/18 08:09 Dose: 150 mg Docusate Sodium (Colace) 100 mg PO DAILY PRN PRN Reason: Constipation Hydromorphone HCl (Dilaudid) 1 mg IVPUSH Q12H PRN PRN Reason: Pain Magnesium Oxide (Magnesium Oxide) 250 mg PO 1400 [facility] Last Admin: 02/26/18 12:59 Dose: 250 mg Methylcellulose (Citrucel) 500 mg PO TID [facility] Last Admin: 02/27/18 08:09 Dose: 500 mg Oxybutynin Chloride (Oxybutynin Er) 10 mg PO BEDTIME [facility] Last Admin: 02/26/18 21:04 Dose: 10 mg Oxycodone HCl (Oxycodone) 5 mg PO Q4H PRN PRN Reason: Pain Last Admin: 02/26/18 21:51 Dose: 5 mg Pantoprazole Sodium (Protonix) 40 mg PO ACBREAKFAST [facility] Last Admin: 02/27/18 05:00 Dose: 40 mg Potassium Chloride (Klor-Con 10) 10 meq PO TIDMEALS [facility] Last Admin: 02/27/18 08:09 Dose: 10 meq Rivaroxaban (Xarelto) 15 mg PO BID MARGARET Stop: 03/16/18 09:01 Last Admin: 02/27/18 08:10 Dose: 15 mg Rosuvastatin Calcium (Crestor) 20 mg PO BEDTIME [facility] Last Admin: 02/26/18 21:03 Dose: 20 mg Sodium Chloride (Saline Flush) 10 ml FLUSH ASDIRECTED PRN PRN Reason: Keep Vein Open Last Admin: 02/24/18 13:52 Dose: 10 ml Discontinued Medications Bumetanide (Bumex) 1 mg PO Q48H [facility] Bumetanide (Bumex) 1 mg IVPUSH ONETIME ONE Stop: 02/25/18 09:41 Last Admin: 02/25/18 10:15 Dose: 1 mg Bumetanide (Bumex) 1 mg IVPUSH ONETIME ONE Stop: 02/25/18 14:40 Last Admin: 02/25/18 14:53 Dose: 1 mg Hydromorphone HCl (Dilaudid) 1 mg IVPUSH ONETIME ONE Stop: 02/24/18 13:48 Last Admin: 02/24/18 13:53 Dose: 1 mg Hydromorphone HCl (Dilaudid) 1 mg IVPUSH ONETIME ONE Stop: 02/24/18 17:13 Last Admin: 02/24/18 17:27 Dose: 1 mg Sodium Chloride (Normal Saline) 1,000 mls @ 500 mls/hr IV .BOLUS ONE Stop: 02/24/18 17:22 Last Admin: 02/24/18 15:27 Dose: 500 mls/hr Sodium Chloride (Normal Saline) 1,000 mls @ 50 mls/hr IV ASDIRECTED [facility] Last Admin: 02/24/18 19:45 Dose: 50 mls/hr Iopamidol (Isovue-370 (76%)) 100 ml IVPUSH ONETIME ONE Stop: 02/24/18 15:24 Last Admin: 02/24/18 15:36 Dose: 100 ml (Biotin [Biotin] 1 (Tab)Own Med) 1 tab PO BEDTIME [facility] Last Admin: 02/24/18 21:05 Dose: Not Given (Folic Acid [Folic Acid] 400 Mcg) Own Med 400 mcg PO DAILY [facility] Last Admin: 02/25/18 10:31 Dose: Not Given Ondansetron HCl (Zofran) 4 mg IV ONETIME ONE Stop: 02/24/18 13:48 Last Admin: 02/24/18 13:52 Dose: 4 mg - Exam General: Alert, Oriented Neck: Supple Lungs: Clear to Auscultation, Normal Respiratory Effort Cardiovascular: Regular Rate, Regular Rhythm GI/Abdominal Exam: Normal Bowel Sounds, Soft, Non-Tender Extremities: Pedal Edema (b/l ) Skin: Warm, Dry, Other (no redness on either knees, left incision withour drainage) - Problem List & Annotations (1) Knee pain, right SNOMED Code(s): 78126806 Code(s): M25.561 - PAIN IN RIGHT KNEE Status: Acute Current Visit: Yes (2) DVT, lower extremity SNOMED Code(s): 130195853 Code(s): I82.409 - ACUTE EMBOLISM AND THOMBOS UNSP DEEP VN UNSP LOWER EXTREMITY Status: Acute Current Visit: No Qualifiers: Affected thrombotic vein of extremity: unspecified vein of extremity Chronicity: acute Laterality: left Qualified Code(s): I82.402 - Acute embolism and thrombosis of unspecified deep veins of left lower extremity (3) Hypoxia SNOMED Code(s): 906399160 Code(s): R09.02 - HYPOXEMIA Status: Acute Current Visit: No (4) Post op infection SNOMED Code(s): 48208238 Code(s): T81.4XXA - INFECTION FOLLOWING A PROCEDURE, INITIAL ENCOUNTER Status: Acute Current Visit: No Qualifiers: Encounter type: initial encounter Qualified Code(s): T81.4XXA - Infection following a procedure, initial encounter (5) Pulmonary emboli SNOMED Code(s): 78569012 Code(s): I26.99 - OTHER PULMONARY EMBOLISM WITHOUT ACUTE COR PULMONALE Status: Acute Current Visit: No Qualifiers: Pulmonary embolism type: other Chronicity: acute Acute cor pulmonale presence: without acute cor pulmonale Qualified Code(s): I26.99 - Other pulmonary embolism without acute cor pulmonale - Problem List Review Problem List Initiated/Reviewed/Updated: Yes - My Orders Last 24 Hours: My Active Orders 02/28/18 05:15 BASIC METABOLIC PANEL,BMP [CHEM] AM CBC WITH AUTO DIFF [HEME] AM - Plan Plan:: This is a 77 Y/O F admitted with Acute Hypoxia and Rt Knee pain with generalized weakness Impression and Plan: 1. Acute Hypoxia: This is likely from small Peripheral Pulmonary Emboli Bilaterally noted by CT of chest with contrast and also noted to have bands of Atelectasis in both lower lobes of the lung -Will continue Xeralto at 15 mg 2 times a day -Advise to continue to use IS and advise pt to use IS every hour -Will continue [place] oxygen as needed - taper as possible overnight - will do nocturnal desat study -Will continue Albuterol nebs as needed 2. Left LE DVT: pt was diagnosed with Left LE DVT diagnosed on 02/22/18 by U/S -She is on on Xeralto 15 mg 2 times a day and will continue 3. RT LE Cellulitis: Pt was seen in [place] ED on 02/21/18 with with erythema of the incision site of the Left LE -She is now on clindamycin 150 mg 4 times a day and will continue for now -there is no erythema 4. Rt LE pain: Pt has signifiant arthritis of Rt Knee and will likely have total knee replacement of the right side -She is also favoring Rt knee and placing more weight on right side after the left Knee Total knee replacement -Will continue Oxycodone -Will give Dialaudid for Breakthrough pain - PT/OT feels she is OK for home discharge 5. Hypothyroidism: Pt has history of Hypothyroidism and no on levothyroxine, but CT chest with contrast showed enlarge right lobe of thyroid, need further evaluation by Ultrasound and that can be done as out pt ( I have discussed the finding with pt and daughter and also advise them to discuss with PMD once discharged) 6. CKD stage III: This is likely from Hypertension and base line creatinine 1.1 -1.4 mg/dl -Pt had contrast exposure on ( 02/24/18) -BMP in AM 7. Sleep Apnea: -will do nocturnal desat study f/up as out pt with sleep study 8. DVT prophylaxis: Continue Xeralto 9. GI prophylaxis: continue Protonix 10. Code Status: Full code
[2018-02-27] MEDS: Rosuvastatin 10 MG Tab PO SCH (20:48)
[2018-02-27] MEDS: Oxybutynin 5 MG Tab.ER PO SCH (20:49)
[2018-02-27] MEDS: Sodium Chloride 0.9% 10 ML Syringe FLUSH PRN (20:53)
[2018-02-27] MEDS: oxyCODONE 5 MG Tab PO PRN (22:46)
[2018-02-28] MEDS: Pantoprazole 40 MG Tab.CR PO SCH (05:23)
[2018-02-28 07:09] LABS: ANION GAP 12.9; CHLORIDE,CL 102 mmol/L (101-111); SODIUM,NA 139 mmol/L (135-145)
[2018-02-28 08:00] VITALS: BP 147/72
[2018-02-28] MEDS: Calcium Carbonate/Vitamin D3 1250 MG-200 Unit Tab PO SCH (08:09)
[2018-02-28] MEDS: Bumetanide 1 MG Tab PO SCH (08:09)
[2018-02-28] MEDS: RIVAROXABAN 10 MG PO SCH (08:09)
[2018-02-28] MEDS: Potassium Chloride 10 MEQ Tab.ER PO SCH (08:09)
[2018-02-28] MEDS: Clindamycin HCl 150 MG Cap PO SCH (08:09)
[2018-02-28] MEDS: Acetaminophen 325 MG Tab PO PRN (08:13)
--- NOTE | 2018-02-28 10:34 | PCM.DCSUM1 ---
Discharge Summary - Hospital Course Free Text/Narrative:: This is a 77 Y/O F admitted with Acute Hypoxia and Rt Knee pain with generalized weakness Impression and Plan: 1. Acute Hypoxia: This is likely from small Peripheral Pulmonary Emboli Bilaterally noted by CT of chest with contrast and also noted to have bands of Atelectasis in both lower lobes of the lung -Will continue Xeralto at 15 mg 2 times a day during 6 min walking test she did not require oxygen during rest she did not require oxygen during sleep on RA her o2 sat was 86 on the night of 02/27/18 with nc oxygen of 1 l/min her sats were 90 or above will send her home with overnight oxygen and will also f/up with DANA testing 2. Left LE DVT: pt was diagnosed with Left LE DVT diagnosed on 02/22/18 by U/S -She is on on Xeralto 15 mg 2 times a day and will continue 3. RT LE Cellulitis: Pt was seen in [place] ED on 02/21/18 with with erythema of the incision site of the Left LE -She is now on clindamycin 150 mg 4 times a day and will finish oral coourse 4. Rt LE pain: Pt has signifiant arthritis of Rt Knee and will likely have total knee replacement of the right side -She was also favoring Rt knee and placing more weight on right side after the left Knee Total knee replacement -Will continue Oxycodone - PT/OT feels she is OK for home discharge 5. Hypothyroidism: Pt has history of Hypothyroidism and no on levothyroxine, but CT chest with contrast showed enlarge right lobe of thyroid, need further evaluation by Ultrasound and that can be done as out pt ( I have discussed the finding with pt and daughter and also advise them to discuss with PMD once discharged) 6. CKD stage III: This is likely from Hypertension and base line creatinine 1.1 -1.4 mg/dl -Pt had contrast exposure on ( 02/24/18) 7. Sleep Apnea: f/up as out pt with sleep study Diagnosis: Stroke: No - Discharge Data Discharge Date: 02/28/18 Discharge Disposition: Home, Self-Care 01 Condition: Good - Discharge Diagnosis/Problem(s) (1) Knee pain, right SNOMED Code(s): 30006012 ICD Code: M25.561 - PAIN IN RIGHT KNEE Status: Acute Current Visit: Yes (2) DVT, lower extremity SNOMED Code(s): 958585510 ICD Code: I82.409 - ACUTE EMBOLISM AND THOMBOS UNSP DEEP VN UNSP LOWER EXTREMITY Status: Acute Current Visit: No Qualifiers: Affected thrombotic vein of extremity: unspecified vein of extremity Chronicity: acute Laterality: left Qualified Code(s): I82.402 - Acute embolism and thrombosis of unspecified deep veins of left lower extremity (3) Hypoxia SNOMED Code(s): 415382553 ICD Code: R09.02 - HYPOXEMIA Status: Acute Current Visit: No (4) Post op infection SNOMED Code(s): 03393443 ICD Code: T81.4XXA - INFECTION FOLLOWING A PROCEDURE, INITIAL ENCOUNTER Status: Acute Current Visit: No Qualifiers: Encounter type: initial encounter Qualified Code(s): T81.4XXA - Infection following a procedure, initial encounter (5) Pulmonary emboli SNOMED Code(s): 04290952 ICD Code: I26.99 - OTHER PULMONARY EMBOLISM WITHOUT ACUTE COR PULMONALE Status: Acute Current Visit: No Qualifiers: Pulmonary embolism type: other Chronicity: acute Acute cor pulmonale presence: without acute cor pulmonale Qualified Code(s): I26.99 - Other pulmonary embolism without acute cor pulmonale - Patient Summary/Data Consults: Consultations 02/25/18 09:38 OT Evaluation and Treatment [CONS] Routine PT Evaluation and Treatment [CONS] Routine - Patient Instructions Diet: Heart Healthy Diet Activity: As Tolerated - Discharge Plan *PRESCRIPTION DRUG MONITORING PROGRAM REVIEWED*: Not Applicable *COPY OF PRESCRIPTION DRUG MONITORING REPORT IN PATIENT STEVIE: Not Applicable Home Medications: Home Meds Calcium Citrate/Vitamin D3 [Calcium Citrate - Vit D Caplet] 1 tab PO DAILY 08/11 [History] Rosuvastatin [Crestor] 20 mg PO BEDTIME 08/11/14 [History] Acetaminophen [Tylenol Extra Strength] 2 tab PO Q6H 11/06/15 [History] Lutein 1 tab PO DAILY 11/06/15 [History] Methylcellulose [Fiber] 1 tab PO TID 11/06/15 [History] Bumetanide 1 mg PO Q48H 02/21/18 [History] Ascorbic Acid [Vitamin C] 500 mg PO 1400 02/24/18 [History] Clindamycin HCl 150 mg PO QID 02/24/18 [History] Folic Acid 400 mcg PO DAILY 02/24/18 [History] Glucosamine/Msm/Chondroitin A [Triple Flex Caplet] 1 each PO 1400 02/24/18 [ History] Magnesium Oxide 250 mg PO 1400 02/24/18 [History] Oxybutynin Chloride [Ditropan Xl] 10 mg PO BEDTIME 02/24/18 [History] Potassium Chloride 10 meq PO TID 02/24/18 [History] Rivaroxaban [Xarelto] 15 mg PO BID 02/24/18 [History] oxyCODONE 5 mg PO Q4H PRN 02/24/18 [History] Patient's Own Medication [Ptom] 250 mg PO DAILY 02/25/18 [History] Referrals: Mariah Curry PA [Primary Care Provider] - - Discharge Summary/Plan Comment DC Time >30 min.: No - General Info Date of Service: 02/28/18 Subjective Update: feeling well, pain is controlled, knee swelling is down - Review of Systems General: Denies: Fever Pulmonary: Denies: Shortness of Breath Cardiovascular: Denies: Chest Pain Gastrointestinal: Denies: Abdominal Pain Genitourinary: Denies: Dysuria Neurological: Denies: Confusion - Patient Data Vitals - Most Recent: Last Vital Signs Temp 36.8 C 02/28/18 07:59 Pulse 80 02/28/18 07:59 Resp 20 02/28/18 07:59 BP 147/72 H 02/28/18 07:59 Pulse Ox 96 02/28/18 07:59 Weight - Most Recent: 91.626 kg I&O - Last 24 hours: Intake & Output 02/27/18 02/28/18 02/28/18 22:59 06:59 14:59 Intake Total 660 325 440 Output Total 500 600 400 Balance 160 -275 40 Lab Results - Last 24 hrs: Laboratory Results - last 24 hr 02/28/18 02/28/18 Range/Units 06:18 06:18 WBC 9.5 (5.0-10.0) 10^3/uL RBC 3.28 L (4.2-5.4) 10^6/uL Hgb 9.8 L D (12.0-16.0) g/dL Hct 30.9 L (37.0-47.0) % MCV 94.2 (80-100) fL MCH 29.9 (27.0-34.0) pg MCHC 31.7 L (33.0-35.0) g/dL Plt Count 501 H (150-450) 10^3/uL Neut % (Auto) 61.2 (42.2-75.2) % Lymph % (Auto) 20.5 (20.5-50.1) % [place] % (Auto) 12.7 H (2-8) % Eos % (Auto) 5.0 H (1.0-3.0) % Baso % (Auto) 0.6 (0.0-1.0) % Sodium 139 (135-145) mmol/L Potassium 3.9 (3.6-5.0) mmol/L Chloride 102 (101-111) mmol/L Carbon Dioxide 28.0 (21.0-31.0) mmol/L Anion Gap 12.9 BUN 14 (7-18) mg/dL Creatinine 0.8 (0.6-1.3) mg/dL Est Cr Clr Drug Dosing 48.72 mL/min Estimated GFR (MDRD) > 60 Glucose 94 (74-105) mg/dL Calcium 8.9 (8.4-10.2) mg/dl HERI Results - Last 24 hrs: Microbiology 02/24/18 15:04 Aerobic Blood Culture - Preliminary Blood - Venous NO GROWTH AFTER 3 DAYS Anaerobic Blood Culture - Preliminary NO GROWTH AFTER 3 DAYS 02/24/18 16:14 Aerobic Blood Culture - Preliminary Blood - Venous - Lab Draw NO GROWTH AFTER 3 DAYS Anaerobic Blood Culture - Final Med Orders - Current: Current Medications Acetaminophen (Tylenol) 650 mg PO Q4H PRN PRN Reason: Pain (mild 1-3 )/fever Last Admin: 02/28/18 08:13 Dose: 650 mg Albuterol (Proventil Neb Soln) 2.5 mg NEB Q4HRRT PRN PRN Reason: Shortness of Breath Bumetanide (Bumex) 1 mg PO Q48H [facility] Last Admin: 02/28/18 08:09 Dose: 1 mg Calcium Carbonate (Calcium Carbonate/Vitamin D 1250 Mg-200 Unit) 1 tab PO DAILY [facility] Last Admin: 02/28/18 08:09 Dose: 1 tab Clindamycin HCl (Cleocin) 150 mg PO QID [facility] Last Admin: 02/28/18 08:09 Dose: 150 mg Docusate Sodium (Colace) 100 mg PO DAILY PRN PRN Reason: Constipation Hydromorphone HCl (Dilaudid) 1 mg IVPUSH Q12H PRN PRN Reason: Pain Magnesium Oxide (Magnesium Oxide) 250 mg PO 1400 [facility] Last Admin: 02/27/18 12:59 Dose: 250 mg Methylcellulose (Citrucel) 500 mg PO TID [facility] Last Admin: 02/28/18 08:09 Dose: 500 mg Oxybutynin Chloride (Oxybutynin Er) 10 mg PO BEDTIME [facility] Last Admin: 02/27/18 20:49 Dose: 10 mg Oxycodone HCl (Oxycodone) 5 mg PO Q4H PRN PRN Reason: Pain Last Admin: 02/27/18 22:46 Dose: 5 mg Pantoprazole Sodium (Protonix) 40 mg PO ACBREAKFAST [facility] Last Admin: 02/28/18 05:23 Dose: 40 mg Potassium Chloride (Klor-Con 10) 10 meq PO TIDMEALS [facility] Last Admin: 02/28/18 08:09 Dose: 10 meq Rivaroxaban (Xarelto) 15 mg PO BID [facility] Stop: 03/16/18 09:01 Last Admin: 02/28/18 08:09 Dose: 15 mg Rosuvastatin Calcium (Crestor) 20 mg PO BEDTIME [facility] Last Admin: 02/27/18 20:48 Dose: 20 mg Sodium Chloride (Saline Flush) 10 ml FLUSH ASDIRECTED PRN PRN Reason: Keep Vein Open Last Admin: 02/27/18 20:53 Dose: 10 ml Discontinued Medications Bumetanide (Bumex) 1 mg PO Q48H [facility] Bumetanide (Bumex) 1 mg IVPUSH ONETIME ONE Stop: 02/25/18 09:41 Last Admin: 02/25/18 10:15 Dose: 1 mg Bumetanide (Bumex) 1 mg IVPUSH ONETIME ONE Stop: 02/25/18 14:40 Last Admin: 02/25/18 14:53 Dose: 1 mg Hydromorphone HCl (Dilaudid) 1 mg IVPUSH ONETIME ONE Stop: 02/24/18 13:48 Last Admin: 02/24/18 13:53 Dose: 1 mg Hydromorphone HCl (Dilaudid) 1 mg IVPUSH ONETIME ONE Stop: 02/24/18 17:13 Last Admin: 02/24/18 17:27 Dose: 1 mg Sodium Chloride (Normal Saline) 1,000 mls @ 500 mls/hr IV .BOLUS ONE Stop: 02/24/18 17:22 Last Admin: 02/24/18 15:27 Dose: 500 mls/hr Sodium Chloride (Normal Saline) 1,000 mls @ 50 mls/hr IV ASDIRECTED [facility] Last Admin: 02/24/18 19:45 Dose: 50 mls/hr Iopamidol (Isovue-370 (76%)) 100 ml IVPUSH ONETIME ONE Stop: 02/24/18 15:24 Last Admin: 02/24/18 15:36 Dose: 100 ml (Biotin [Biotin] 1 (Tab)Own Med) 1 tab PO BEDTIME [facility] Last Admin: 02/24/18 21:05 Dose: Not Given (Folic Acid [Folic Acid] 400 Mcg) Own Med 400 mcg PO DAILY [facility] Last Admin: 02/25/18 10:31 Dose: Not Given Ondansetron HCl (Zofran) 4 mg IV ONETIME ONE Stop: 02/24/18 13:48 Last Admin: 02/24/18 13:52 Dose: 4 mg - Exam General: Reports: Alert, Oriented Neck: Reports: Supple Lungs: Reports: Clear to Auscultation, Normal Respiratory Effort Cardiovascular: Reports: Regular Rate, Regular Rhythm, Murmurs Extremities: Pedal Edema (1+ b/l)
== END 2018-02-28 13:25 | disposition home or self-care (01) | DRG 176 ==
LOC: DL.ED 13:22 → DL.MS 17:34 → UNDOADMIN 17:34 → DL.MS 19:28
PROVIDERS: ADMIT Internal Medicine Nephrology; ATTEND Internal Medicine Nephrology
DX: I26.99 Other pulmonary embolism without acute cor pulmonale (principal); T81.4XXA Infection following a procedure, initial encounter; R09.02 Hypoxemia; I82.4Z2 Acute embolism and thrombosis of unspecified deep veins of left distal lower extremity; I10 Essential (primary) hypertension; R32 Unspecified urinary incontinence; L03.116 Cellulitis of left lower limb; Y83.8 Other surgical procedures as the cause of abnormal reaction of the patient, or of later complication, without mention of misadventure at the time of the procedure; M19.90 Unspecified osteoarthritis, unspecified site; M48.061 Spinal stenosis, lumbar region without neurogenic claudication; M13.861 Other specified arthritis, right knee; Z96.652 Presence of left artificial knee joint; E03.9 Hypothyroidism, unspecified; I12.9 Hypertensive chronic kidney disease with stage 1 through stage 4 chronic kidney disease, or unspecified chronic kidney disease; M85.80 Other specified disorders of bone density and structure, unspecified site; N18.3 Chronic kidney disease, stage 3 (moderate); E78.00 Pure hypercholesterolemia, unspecified; G89.29 Other chronic pain; M54.9 Dorsalgia, unspecified; G47.30 Sleep apnea, unspecified; E04.9 Nontoxic goiter, unspecified; E66.01 Morbid (severe) obesity due to excess calories; Z68.35 Body mass index [BMI] 35.0-35.9, adult; Z85.038 Personal history of other malignant neoplasm of large intestine; Z90.49 Acquired absence of other specified parts of digestive tract; Z79.899 Other long term (current) drug therapy; Z88.8 Allergy status to other drugs, medicaments and biological substances
CPT/HCPCS: 36415; 71045; 71260; 80053; 81001; 82150; 83605; 83690; 83880; 85025; 85610; 85730; 87040 ×2; 96361; 96374; 96375; 96376; 99285; J1170 ×2; J2405; J7030; J7050; Q9967 ×2; 80048; 84484; 97162-GP; 97165-GO; 99284; A9270-GY; J3490

== ENCOUNTER 2019-03-25 09:43 | Inpatient (IN) | payer MEDICARE, BC ==
[2019-03-25] MEDS ORDERED: Acetaminophen/oxyCODONE 325-5 MG Tab PO PRN (13:08)
[2019-03-25] MEDS ORDERED: Morphine 2 MG/ML Syringe IVPUSH PRN (13:08)
[2019-03-25] MEDS ORDERED: Magnesium Hydroxide 400 MG/5 ML Susp 30 ML Cup PO PRN (13:08)
[2019-03-25] MEDS ORDERED: Ondansetron 4 MG Tab.DIS PO PRN (13:08)
[2019-03-25] MEDS ORDERED: oxyCODONE 5 MG Tab PO PRN (13:12)
[2019-03-25] MEDS ORDERED: Cyclobenzaprine 10 MG Tab PO PRN (13:12)
[2019-03-25] MEDS ORDERED: ceFAZolin 1 GM in Premix Bag 1 BAG IV SCH (14:00)
[2019-03-25] MEDS: Acetaminophen 500 MG Tab PO SCH ×2 (14:15→22:35)
[2019-03-25] MEDS: Ascorbic Acid 500 MG Tab PO SCH (14:16)
[2019-03-25] MEDS: Sodium Chloride 0.9% 10 ML Syringe FLUSH PRN (14:18)
--- NOTE | 2019-03-25 14:21 | HP ---
CHIEF COMPLAINT: Recent diagnosis of septic arthritis requiring surgical debridement and polyethylene exchange, requiring long-term antibiotics for total of 6 weeks, and admitted to the swing bed. HISTORY OF PRESENTING ILLNESS: Ms. Esperanza Hansen is a 78-year-old female with a medical history significant for hypertension, hyperlipidemia, chronic kidney disease, who had a recent right total knee arthroplasty done on 10/26/2018 and was doing well, but up until 2-3 weeks back, she started having increasing pain and had further workup. An aspiration on 03/15/2019 showed 106 nucleated cells with 96% neutrophils, suggestive of septic arthritis. The aspirate grew oxacillin-susceptible Staphylococcus lugdunensis. She was evaluated by Orthopedic services and underwent incision and debridement of the right knee on 03/16/2019 and redo on 03/18/2019 and finally she had irrigation and excisional debridement with right knee with polyethylene exchange and application of an incisional VAC on the right knee on the 03/20/2019. Since then, she has been receiving IV antibiotic with cefazolin. She was evaluated by Infectious Disease team while at [facility] and was suggested for total of 6 weeks of IV antibiotics which would go through 04/29/2019. She is off the wound VAC now, and she is sent to the swing bed for continued physical therapy and occupational therapy and continued IV antibiotics. At this time, the patient complains of mild pain at the right knee which is 2 to 3 out of 10 in intensity, dull in nature, aggravated on ambulation, relieved with pain medication, nonradiating in nature, not associated with nausea or vomiting. Denies any chest pain. No shortness of breath. No abdominal pain. The patient denied any history of chest pains on exertion. No history of dyspnea on exertion. No history of orthopnea or paroxysmal nocturnal dyspnea. The patient denied any history of hematemesis, hematochezia, or melenic stools. Normal bowel and bladder habits otherwise. REVIEW OF SYSTEMS: A complete review of system including skin; ear, nose, and throat; cardiovascular system; respiratory system; gastrointestinal system; genitourinary system; hematology; oncology; neurology; allergy; immunology; constitutional were all evaluated and were negative except for the above-said notes. PAST MEDICAL HISTORY: Significant for hypertension, hyperlipidemia, chronic kidney disease, history of a colon cancer in the past, heart murmur, plantar fasciitis, secondary hypothyroidism. PAST SURGICAL HISTORY: Significant for shoulder surgery; endometrial biopsy; colonoscopy; breast reduction; back surgery; abdominal surgery with hemicolectomy; total knee replacement, bilateral. FAMILY HISTORY: Significant for hypertension, hyperlipidemia, and Alzheimer disease in her mother. Heart failure, hyperlipidemia, and hypertension in her father. Sister with cancer and brother with heart disease, hypertension, coronary artery disease. SOCIAL HISTORY: The patient denies any history of smoking tobacco. No history of alcohol intake. ALLERGIES: The patient noted to have allergies to Norvasc, diphenhydramine, metoprolol. HOME MEDICATIONS: Include labetalol 200 mg twice a day, potassium chloride 10 mEq 3 times a day, lisinopril 10 mg daily, Cymbalta 30 mg daily, fiber 1 tablet p.o. 3 times a day, folic acid 400 mcg daily, Flexeril 10 mg 3 times a day as needed, Crestor 20 mg at bedtime, Xarelto 10 mg daily, oxycodone 5 mg every 4 hours as needed, Ditropan XL 10 mg at bedtime, bumetanide 1 mg every 48 hours, ascorbic acid 1000 mg daily, Tylenol extra strength 2 tablets every 8 hours as needed. PHYSICAL EXAMINATION: Vitals: Temperature of 97.2, pulse of 70, blood pressure 120/52, respiratory rate of 18, saturating at 98% on room air. General Appearance: The patient is well oriented to time, place, and person. Follows commands spontaneously. Cardiovascular System: S1, S2 heard with normal intensity. A grade 3/6 systolic murmur appreciated. Abdomen: Soft. Bowel sounds positive. Nontender. No rigidity. Extremities: Mild edema in bilateral lower extremities. Surgical dressing on the right knee. Neurological: No gross focal neurological deficit. LABORATORY DATA: As reviewed from [facility]. WBC 11.7, hemoglobin 8.7, hematocrit 27.4, platelet count 478. Sodium 141, potassium 4.1, chloride 107, bicarb 29.3, creatinine 0.7. ASSESSMENT: 1. 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 2. Right knee septic arthritis with methicillin-susceptible Staphylococcus requiring prolonged antibiotic with cefazolin. 3. Hypertension. 4. Hyperlipidemia. 5. Gastroesophageal reflux disease. 6. Chronic kidney disease. PLAN: 1. Right total knee arthroplasty septic arthritis. The patient is status post polyethylene exchange on 03/20/2019 and is recommended for long-term antibiotics. The patient was evaluated by Infectious Disease team and is recommended for IV cefazolin for a total of 6 weeks. She will require the antibiotics till 04/29/2019. We will continue with IV cefazolin for now. 2. We will have Physical Therapy and Occupational Therapy evaluate and treat while in the swing bed. 3. Hypertension. Continue with current antihypertensive medications. She is noted to be on labetalol, continue the same. 4. Chronic kidney disease. Try to avoid nephrotoxic agents. Dose adjust medications for renal function. 5. Gastroesophageal reflux disease. Continue with proton pump inhibitor. 6. DVT prophylaxis. Orthopedic has recommended for continuing Xarelto for DVT prophylaxis. Continue the same. 7. Code status. The patient wants to be full code. 8. Reviewed the labs and medications. Reviewed the charts obtained from [facility]. [facility] /[id number]
[2019-03-25] MEDS ORDERED: ceFAZolin 1 GM in Premix Bag 1 BAG IV ONE (14:45)
[2019-03-25] MEDS: Bumetanide 1 MG Tab PO SCH (15:53)
[2019-03-25] MEDS: Potassium Chloride 10 MEQ Tab.ER PO SCH (17:20)
[2019-03-25] MEDS: ceFAZolin 2 GM in Premix Bag 1 BAG IV SCH (22:23)
[2019-03-25] MEDS: Labetalol 100 MG Tab PO SCH (22:31)
[2019-03-25] MEDS: Rosuvastatin 10 MG Tab PO SCH (22:34)
[2019-03-25] MEDS: Oxybutynin 5 MG Tab.ER PO SCH (22:35)
[2019-03-26 06:26] LABS: CHLORIDE,CL 104 mmol/L (101-111); SODIUM,NA 141 mmol/L (135-145)
[2019-03-26] MEDS: ceFAZolin 2 GM in Premix Bag 1 BAG IV SCH ×3 (06:32→22:00)
[2019-03-26] MEDS: Acetaminophen 500 MG Tab PO SCH ×3 (06:33→21:57)
[2019-03-26] MEDS: Potassium Chloride 10 MEQ Tab.ER PO SCH ×3 (08:56→16:57)
[2019-03-26] MEDS: Labetalol 100 MG Tab PO SCH ×2 (08:56→21:59)
[2019-03-26] MEDS: DULoxetine 30 MG Cap PO SCH (08:56)
[2019-03-26] MEDS: Lisinopril 10 MG Tab PO SCH (08:57)
[2019-03-26] MEDS: Rivaroxaban 10 MG Tab PO SCH (08:57)
[2019-03-26] MEDS ORDERED: Mineral Oil/Petrolatum/Phenylephrine/Shark Liver Oil Oint 57 GM Tube RECTAL PRN (12:46)
[2019-03-26] MEDS: Sodium Chloride 0.9% 10 ML Syringe FLUSH PRN (15:06)
[2019-03-26] MEDS: Ascorbic Acid 500 MG Tab PO SCH (15:06)
[2019-03-26] MEDS: Oxybutynin 5 MG Tab.ER PO SCH (21:57)
[2019-03-26] MEDS: Rosuvastatin 10 MG Tab PO SCH (21:58)
[2019-03-27] MEDS: ceFAZolin 2 GM in Premix Bag 1 BAG IV SCH ×3 (05:44→22:31)
[2019-03-27] MEDS: Acetaminophen 500 MG Tab PO SCH ×3 (05:44→22:30)
[2019-03-27] MEDS: Labetalol 100 MG Tab PO SCH ×2 (08:27→22:29)
[2019-03-27] MEDS: Rivaroxaban 10 MG Tab PO SCH (08:28)
[2019-03-27] MEDS: Bumetanide 1 MG Tab PO SCH (08:28)
[2019-03-27] MEDS: DULoxetine 30 MG Cap PO SCH (08:28)
[2019-03-27] MEDS: Lisinopril 10 MG Tab PO SCH (08:28)
[2019-03-27] MEDS: Potassium Chloride 10 MEQ Tab.ER PO SCH ×3 (08:28→17:20)
[2019-03-27] MEDS: Ascorbic Acid 500 MG Tab PO SCH (13:58)
[2019-03-27] MEDS: Sodium Chloride 0.9% 10 ML Syringe FLUSH PRN ×2 (14:00→14:39)
[2019-03-27] MEDS: Rosuvastatin 10 MG Tab PO SCH (22:28)
[2019-03-27] MEDS: Oxybutynin 5 MG Tab.ER PO SCH (22:28)
[2019-03-28] MEDS: ceFAZolin 2 GM in Premix Bag 1 BAG IV SCH ×3 (05:59→21:35)
[2019-03-28] MEDS: Acetaminophen 500 MG Tab PO SCH ×3 (05:59→21:36)
[2019-03-28] MEDS: Potassium Chloride 10 MEQ Tab.ER PO SCH ×3 (08:38→17:35)
[2019-03-28] MEDS: Labetalol 100 MG Tab PO SCH ×2 (08:38→20:47)
[2019-03-28] MEDS: Rivaroxaban 10 MG Tab PO SCH (08:39)
[2019-03-28] MEDS: DULoxetine 30 MG Cap PO SCH (08:39)
[2019-03-28] MEDS: Lisinopril 10 MG Tab PO SCH (08:39)
[2019-03-28] MEDS: FOLIC ACID 400 MCG PO SCH (10:34)
[2019-03-28] MEDS: LUTEIN 20 MG PO SCH (10:34)
[2019-03-28] MEDS: Ascorbic Acid 500 MG Tab PO SCH (14:05)
[2019-03-28] MEDS: Sodium Chloride 0.9% 10 ML Syringe FLUSH PRN (14:08)
[2019-03-28] MEDS: Rosuvastatin 10 MG Tab PO SCH (20:47)
[2019-03-28] MEDS: Oxybutynin 5 MG Tab.ER PO SCH (20:48)
[2019-03-29] MEDS: ceFAZolin 2 GM in Premix Bag 1 BAG IV SCH ×3 (05:56→21:53)
[2019-03-29] MEDS: Acetaminophen 500 MG Tab PO SCH ×3 (05:56→21:50)
[2019-03-29] MEDS: Bumetanide 1 MG Tab PO SCH (08:09)
[2019-03-29] MEDS: DULoxetine 30 MG Cap PO SCH (08:09)
[2019-03-29] MEDS: Rivaroxaban 10 MG Tab PO SCH (08:09)
[2019-03-29] MEDS: Labetalol 100 MG Tab PO SCH ×2 (08:09→21:49)
[2019-03-29] MEDS: Potassium Chloride 10 MEQ Tab.ER PO SCH ×3 (08:09→16:29)
[2019-03-29] MEDS: Lisinopril 10 MG Tab PO SCH (08:09)
[2019-03-29] MEDS: FOLIC ACID 400 MCG PO SCH (08:10)
[2019-03-29] MEDS: LUTEIN 20 MG PO SCH (08:10)
[2019-03-29] MEDS: Sodium Chloride 0.9% 10 ML Syringe FLUSH PRN ×2 (13:05→21:52)
[2019-03-29] MEDS: Ascorbic Acid 500 MG Tab PO SCH (13:06)
--- NOTE | 2019-03-29 13:30 | PN ---
DATE: 03/29/2019 SUBJECTIVE: The patient is doing well. She denies any ongoing complaints. She denies any fever, chills, chest pain, shortness of breath. OBJECTIVE: Vital Signs: Blood pressure is 129/60, pulse 69, respirations 16, temperature of 97.1. Heart: Regular rate and rhythm. Normal S1 and S2. No gallops. No rubs. Lungs: Equal bilaterally. No crackles. No wheezing. Abdomen: Soft and nontender. Extremities: Right knee dressing is in place and there are no signs of redness or drainage. PLAN: We will continue with her present management and continue with present IV antibiotics. [facility] /[id number]
[2019-03-29] MEDS: Rosuvastatin 10 MG Tab PO SCH (21:48)
[2019-03-29] MEDS: Oxybutynin 5 MG Tab.ER PO SCH (21:48)
[2019-03-30] MEDS: Acetaminophen 500 MG Tab PO SCH ×3 (05:33→21:38)
[2019-03-30] MEDS: ceFAZolin 2 GM in Premix Bag 1 BAG IV SCH ×3 (05:35→21:42)
[2019-03-30] MEDS: Sodium Chloride 0.9% 10 ML Syringe FLUSH PRN ×3 (05:35→21:41)
[2019-03-30] MEDS: Rivaroxaban 10 MG Tab PO SCH (08:43)
[2019-03-30] MEDS: DULoxetine 30 MG Cap PO SCH (08:43)
[2019-03-30] MEDS: Lisinopril 10 MG Tab PO SCH (08:43)
[2019-03-30] MEDS: Potassium Chloride 10 MEQ Tab.ER PO SCH ×3 (08:44→17:28)
[2019-03-30] MEDS: Labetalol 100 MG Tab PO SCH ×2 (08:45→21:39)
[2019-03-30] MEDS: FOLIC ACID 400 MCG PO SCH (08:46)
[2019-03-30] MEDS: LUTEIN 20 MG PO SCH (08:46)
[2019-03-30] MEDS: Ascorbic Acid 500 MG Tab PO SCH (14:02)
[2019-03-30] MEDS: Rosuvastatin 10 MG Tab PO SCH (21:39)
[2019-03-30] MEDS: Oxybutynin 5 MG Tab.ER PO SCH (21:39)
[2019-03-31] MEDS: Sodium Chloride 0.9% 10 ML Syringe FLUSH PRN ×3 (05:45→21:46)
[2019-03-31] MEDS: ceFAZolin 2 GM in Premix Bag 1 BAG IV SCH ×3 (05:45→21:46)
[2019-03-31] MEDS: Acetaminophen 500 MG Tab PO SCH ×3 (05:50→21:44)
[2019-03-31] MEDS: Lisinopril 10 MG Tab PO SCH (08:27)
[2019-03-31] MEDS: DULoxetine 30 MG Cap PO SCH (08:27)
[2019-03-31] MEDS: Bumetanide 1 MG Tab PO SCH (08:28)
[2019-03-31] MEDS: Potassium Chloride 10 MEQ Tab.ER PO SCH ×3 (08:28→17:17)
[2019-03-31] MEDS: Rivaroxaban 10 MG Tab PO SCH (08:28)
[2019-03-31] MEDS: FOLIC ACID 400 MCG PO SCH (08:29)
[2019-03-31] MEDS: LUTEIN 20 MG PO SCH (08:29)
[2019-03-31] MEDS: Labetalol 100 MG Tab PO SCH ×2 (08:34→21:44)
[2019-03-31] MEDS: Ascorbic Acid 500 MG Tab PO SCH (14:16)
[2019-03-31] MEDS: Oxybutynin 5 MG Tab.ER PO SCH (21:43)
[2019-03-31] MEDS: Rosuvastatin 10 MG Tab PO SCH (21:43)
[2019-04-01] MEDS: Acetaminophen 500 MG Tab PO SCH ×3 (05:30→21:39)
[2019-04-01] MEDS: ceFAZolin 2 GM in Premix Bag 1 BAG IV SCH ×3 (05:31→21:42)
[2019-04-01] MEDS: Sodium Chloride 0.9% 10 ML Syringe FLUSH PRN ×4 (05:31→22:13)
[2019-04-01] MEDS: Potassium Chloride 10 MEQ Tab.ER PO SCH ×3 (08:25→17:21)
[2019-04-01] MEDS: Rivaroxaban 10 MG Tab PO SCH (08:25)
[2019-04-01] MEDS: LUTEIN 20 MG PO SCH (08:26)
[2019-04-01] MEDS: Lisinopril 10 MG Tab PO SCH (08:26)
[2019-04-01] MEDS: DULoxetine 30 MG Cap PO SCH (08:26)
[2019-04-01] MEDS: FOLIC ACID 400 MCG PO SCH (08:27)
[2019-04-01] MEDS: Labetalol 100 MG Tab PO SCH ×2 (08:27→21:40)
[2019-04-01] MEDS: Ascorbic Acid 500 MG Tab PO SCH (14:10)
[2019-04-01] MEDS: Rosuvastatin 10 MG Tab PO SCH (21:38)
[2019-04-01] MEDS: Oxybutynin 5 MG Tab.ER PO SCH (21:39)
[2019-04-02] MEDS: Acetaminophen 500 MG Tab PO SCH ×3 (05:42→21:42)
[2019-04-02] MEDS: Sodium Chloride 0.9% 10 ML Syringe FLUSH PRN ×3 (05:44→21:45)
[2019-04-02] MEDS: ceFAZolin 2 GM in Premix Bag 1 BAG IV SCH ×3 (05:44→21:45)
[2019-04-02] MEDS: Bumetanide 1 MG Tab PO SCH (08:34)
[2019-04-02] MEDS: Lisinopril 10 MG Tab PO SCH (08:34)
[2019-04-02] MEDS: Potassium Chloride 10 MEQ Tab.ER PO SCH ×3 (08:35→17:53)
[2019-04-02] MEDS: Rivaroxaban 10 MG Tab PO SCH (08:35)
[2019-04-02] MEDS: DULoxetine 30 MG Cap PO SCH (08:35)
[2019-04-02] MEDS: Labetalol 100 MG Tab PO SCH ×2 (08:37→21:44)
[2019-04-02] MEDS: FOLIC ACID 400 MCG PO SCH (08:37)
[2019-04-02] MEDS: LUTEIN 20 MG PO SCH (08:37)
[2019-04-02] MEDS: Ascorbic Acid 500 MG Tab PO SCH (14:23)
[2019-04-02] MEDS: Oxybutynin 5 MG Tab.ER PO SCH (21:42)
[2019-04-02] MEDS: Rosuvastatin 10 MG Tab PO SCH (21:43)
[2019-04-03] MEDS: Acetaminophen 500 MG Tab PO SCH ×3 (05:39→22:05)
[2019-04-03] MEDS: ceFAZolin 2 GM in Premix Bag 1 BAG IV SCH ×3 (05:40→22:04)
[2019-04-03] MEDS: Sodium Chloride 0.9% 10 ML Syringe FLUSH PRN ×5 (05:40→22:00)
[2019-04-03] MEDS: Rivaroxaban 10 MG Tab PO SCH (08:41)
[2019-04-03] MEDS: Lisinopril 10 MG Tab PO SCH (08:41)
[2019-04-03] MEDS: Potassium Chloride 10 MEQ Tab.ER PO SCH ×3 (08:41→17:59)
[2019-04-03] MEDS: DULoxetine 30 MG Cap PO SCH (08:42)
[2019-04-03] MEDS: Labetalol 100 MG Tab PO SCH (08:42)
[2019-04-03] MEDS: FOLIC ACID 400 MCG PO SCH (08:43)
[2019-04-03] MEDS: LUTEIN 20 MG PO SCH (08:43)
--- NOTE | 2019-04-03 11:24 | PCM.PN ---
- General Info Date of Service: 04/03/19 Admission Dx/Problem (Free Text): Septic arthritis of Right TKA Subjective Update: Patient admitted to swing bed from [facility] for septic arthritis of Right TKA to complete 6 week of IV Cefazolin. She is s/p I&D on 03/18/[address] She is dong fairly well. No complaint today. No fever or chills. Functional Status: Reports: Pain Controlled - Review of Systems General: Reports: No Symptoms HEENT: Reports: No Symptoms Pulmonary: Reports: No Symptoms Cardiovascular: Reports: No Symptoms Gastrointestinal: Reports: No Symptoms Genitourinary: Reports: No Symptoms Musculoskeletal: Reports: No Symptoms Skin: Reports: No Symptoms Neurological: Reports: No Symptoms Psychiatric: Reports: No Symptoms - Patient Data Vitals - Most Recent: Last Vital Signs Temp 97.6 F 04/03/19 07:49 Pulse 90 04/03/19 08:42 Resp 20 04/03/19 07:49 BP 135/74 04/03/19 08:42 Pulse Ox 99 04/03/19 07:49 Weight - Most Recent: 203 lb 9.6 oz I&O - Last 24 Hours: Intake & Output 04/02/19 04/03/19 04/03/19 22:59 06:59 14:59 Intake Total 50 150 Balance 50 150 Med Orders - Current: Current Medications Acetaminophen (Tylenol Extra Strength) 1,[address] [facility] Last Admin: 04/03/19 05:39 Dose: 1,000 mg Ascorbic Acid (Vitamin C) 1,[address] [facility] Last Admin: 04/02/19 14:23 Dose: 1,000 mg Bumetanide (Bumex) 1 mg PO Q2D@0900 [facility] Last Admin: 04/02/19 08:34 Dose: 1 mg Cyclobenzaprine HCl (Flexeril) 10 mg PO TID PRN PRN Reason: Muscle Spasm Last Admin: 03/25/19 14:16 Dose: 10 mg Duloxetine HCl (Cymbalta) [address] [facility] Last Admin: 04/03/19 08:42 Dose: 30 mg Cefazolin Sodium/Dextrose 2 gm (/ Premix) 50 mls @ 100 mls/hr IV Q8HR [facility] Last Infusion: 04/03/19 06:18 Dose: Infused Labetalol HCl (Normodyne) [address] [facility] Last Admin: 04/03/19 08:42 Dose: Not Given Lisinopril (Prinivil) [address] [facility] Last Admin: 04/03/19 08:41 Dose: 10 mg Magnesium Hydroxide (Milk Of Magnesia) 30 ml PO Q12H PRN PRN Reason: Constipation Methylcellulose (Citrucel) [address] [facility] Last Admin: 04/03/19 08:42 Dose: 500 mg Morphine Sulfate (Morphine) 2 mg IVPUSH Q2H PRN PRN Reason: Pain (severe 7-10) Ondansetron HCl (Zofran Odt) 4 mg PO Q4H PRN PRN Reason: nausea, able to take PO Oxybutynin Chloride (Oxybutynin Er) [address] [facility] Last Admin: 04/02/19 21:42 Dose: 10 mg Oxycodone HCl (Oxycodone) 5 mg PO Q4H PRN PRN Reason: Pain (moderate 4-6) Folic Acid 400 Mcg [address] [facility] Last Admin: 04/03/19 08:43 Dose: 1 each Osteo Bi-Flex Tab 2 each PO DAILY@1400 [facility] Last Admin: 04/02/19 14:25 Dose: 2 each Lutein 20 Mg Softgel [address] [facility] Last Admin: 04/03/19 08:43 Dose: 1 each Biotin 5,000 Mcg (Softgel) [address] [facility] Last Admin: 04/03/19 08:43 Dose: 1 each Phenyleph/Shark Oil/Min Oil/Petrol (Preparation H Oint) 0 gm RECTAL TID PRN PRN Reason: Pain (mild 1-3) Potassium Chloride (Klor-Con 10) [address] [facility] Last Admin: 04/03/19 08:41 Dose: 10 meq Rivaroxaban (Xarelto) [address] [facility] Last Admin: 04/03/19 08:41 Dose: 10 mg Rosuvastatin Calcium (Crestor) [address] [facility] Last Admin: 04/02/19 21:43 Dose: 20 mg Sodium Chloride (Saline Flush) 10 ml FLUSH ASDIRECTED PRN PRN Reason: Keep Vein Open Last Admin: 04/03/19 06:17 Dose: 10 ml Discontinued Medications Cefazolin Sodium/Dextrose 1 gm (/ Premix) 50 mls @ 100 mls/hr IV Q8HR [facility] Last Infusion: 03/25/19 14:56 Dose: Infused Cefazolin Sodium/Dextrose 1 gm (/ Premix) 50 mls @ 100 mls/hr IV ONETIME ONE Stop: 03/25/19 15:14 Last Admin: 03/25/19 14:57 Dose: Not Given Oxycodone/Acetaminophen (Percocet 325-5 Mg) 1 tab PO Q4H PRN PRN Reason: Pain (moderate 4-6) - Exam Quality Assessment: DVT Prophylaxis General: Alert, Oriented HEENT: Pupils Equal, Pupils Reactive, EOMI, Mucous Membr. Moist/[place] Neck: Supple Lungs: Clear to Auscultation, Normal Respiratory Effort Cardiovascular: Regular Rate, Regular Rhythm GI/Abdominal Exam: Normal Bowel Sounds, Soft, Non-Tender, No Organomegaly, No Distention, No Abnormal Bruit, No Mass, Pelvis Stable (Female) Exam: Normal External Exam, Normal Speculum Exam, Normal Bimanual Exam Back Exam: Normal Inspection, Full Range of Motion Extremities: Normal Inspection, Normal Range of Motion, Non-Tender, No Pedal Edema, Normal Capillary Refill Skin: Warm, Dry, Intact Wound/Incisions: Healing Well Neurological: No New Focal Deficit Psy/Mental Status: Alert, Normal Affect, Normal Mood - Problem List Review Problem List Initiated/Reviewed/Updated: Yes - Plan Plan:: Right TKA septic arthritis -S/p I&D -Continue IV Cefazolin to complete 6 weeks. Will complete on 04/29/2019 -Continue PT/OT #HTN -Continue current care #CKD -Stable #General diet
[2019-04-03] MEDS: Ascorbic Acid 500 MG Tab PO SCH (14:04)
[2019-04-03] MEDS: Oxybutynin 5 MG Tab.ER PO SCH (20:45)
[2019-04-03] MEDS: Rosuvastatin 10 MG Tab PO SCH (20:45)
[2019-04-04] MEDS: Sodium Chloride 0.9% 10 ML Syringe FLUSH PRN ×5 (06:15→22:25)
[2019-04-04] MEDS: ceFAZolin 2 GM in Premix Bag 1 BAG IV SCH ×3 (06:15→21:36)
[2019-04-04] MEDS: Acetaminophen 500 MG Tab PO SCH ×3 (06:16→21:40)
[2019-04-04] MEDS: LUTEIN 20 MG PO SCH (08:27)
[2019-04-04] MEDS: Rivaroxaban 10 MG Tab PO SCH (08:27)
[2019-04-04] MEDS: FOLIC ACID 400 MCG PO SCH (08:27)
[2019-04-04] MEDS: Bumetanide 1 MG Tab PO SCH (08:28)
[2019-04-04] MEDS: Lisinopril 10 MG Tab PO SCH (08:28)
[2019-04-04] MEDS: DULoxetine 30 MG Cap PO SCH (08:28)
[2019-04-04] MEDS: Potassium Chloride 10 MEQ Tab.ER PO SCH ×3 (08:28→17:18)
[2019-04-04] MEDS: Ascorbic Acid 500 MG Tab PO SCH (14:25)
[2019-04-04] MEDS: Oxybutynin 5 MG Tab.ER PO SCH (20:28)
[2019-04-04] MEDS: Rosuvastatin 10 MG Tab PO SCH (20:28)
[2019-04-05] MEDS: Sodium Chloride 0.9% 10 ML Syringe FLUSH PRN ×5 (05:37→21:40)
[2019-04-05] MEDS: ceFAZolin 2 GM in Premix Bag 1 BAG IV SCH ×3 (05:39→21:40)
[2019-04-05] MEDS: Acetaminophen 500 MG Tab PO SCH ×3 (05:42→21:39)
[2019-04-05] MEDS: Rivaroxaban 10 MG Tab PO SCH (08:58)
[2019-04-05] MEDS: Potassium Chloride 10 MEQ Tab.ER PO SCH ×3 (08:58→18:43)
[2019-04-05] MEDS: DULoxetine 30 MG Cap PO SCH (08:59)
[2019-04-05] MEDS: Lisinopril 10 MG Tab PO SCH (08:59)
[2019-04-05] MEDS: LUTEIN 20 MG PO SCH (09:02)
[2019-04-05] MEDS: FOLIC ACID 400 MCG PO SCH (09:02)
[2019-04-05] MEDS: Ascorbic Acid 500 MG Tab PO SCH (14:02)
[2019-04-05] MEDS: Oxybutynin 5 MG Tab.ER PO SCH (21:39)
[2019-04-05] MEDS: Rosuvastatin 10 MG Tab PO SCH (21:39)
[2019-04-06] MEDS: Acetaminophen 500 MG Tab PO SCH ×3 (06:22→21:43)
[2019-04-06] MEDS: Sodium Chloride 0.9% 10 ML Syringe FLUSH PRN ×3 (06:22→21:44)
[2019-04-06] MEDS: ceFAZolin 2 GM in Premix Bag 1 BAG IV SCH ×3 (06:22→21:44)
[2019-04-06] MEDS: DULoxetine 30 MG Cap PO SCH (09:26)
[2019-04-06] MEDS: Potassium Chloride 10 MEQ Tab.ER PO SCH ×3 (09:26→16:55)
[2019-04-06] MEDS: Rivaroxaban 10 MG Tab PO SCH (09:26)
[2019-04-06] MEDS: Lisinopril 10 MG Tab PO SCH (09:26)
[2019-04-06] MEDS: Bumetanide 1 MG Tab PO SCH (09:26)
[2019-04-06] MEDS: LUTEIN 20 MG PO SCH (09:28)
[2019-04-06] MEDS: FOLIC ACID 400 MCG PO SCH (09:28)
[2019-04-06] MEDS: Ascorbic Acid 500 MG Tab PO SCH (13:23)
[2019-04-06] MEDS: Rosuvastatin 10 MG Tab PO SCH (21:43)
[2019-04-06] MEDS: Oxybutynin 5 MG Tab.ER PO SCH (21:43)
[2019-04-07] MEDS: Acetaminophen 500 MG Tab PO SCH ×3 (06:01→21:59)
[2019-04-07] MEDS: ceFAZolin 2 GM in Premix Bag 1 BAG IV SCH ×3 (06:02→22:01)
[2019-04-07] MEDS: Sodium Chloride 0.9% 10 ML Syringe FLUSH PRN ×2 (06:02→13:27)
[2019-04-07] MEDS: DULoxetine 30 MG Cap PO SCH (09:13)
[2019-04-07] MEDS: Lisinopril 10 MG Tab PO SCH (09:13)
[2019-04-07] MEDS: Potassium Chloride 10 MEQ Tab.ER PO SCH ×3 (09:14→17:13)
[2019-04-07] MEDS: Rivaroxaban 10 MG Tab PO SCH (09:14)
[2019-04-07] MEDS: FOLIC ACID 400 MCG PO SCH (09:15)
[2019-04-07] MEDS: LUTEIN 20 MG PO SCH (09:15)
--- NOTE | 2019-04-07 12:27 | PCM.PN ---
- General Info Date of Service: 04/07/19 Admission Dx/Problem (Free Text): Septic arthritis of Right TKA Subjective Update: Patient admitted to swing bed from [facility] for septic arthritis of Right TKA to complete 6 week of IV Cefazolin. She is s/p I&D on 03/18/[address] She is dong fairly well. No complaint today. No fever or chills. Functional Status: Reports: Pain Controlled - Review of Systems General: Reports: No Symptoms HEENT: Reports: No Symptoms Pulmonary: Reports: No Symptoms Cardiovascular: Reports: No Symptoms Gastrointestinal: Reports: No Symptoms Genitourinary: Reports: No Symptoms Musculoskeletal: Reports: No Symptoms Skin: Reports: No Symptoms Neurological: Reports: No Symptoms Psychiatric: Reports: No Symptoms - Patient Data Vitals - Most Recent: Last Vital Signs Temp 98.2 F 04/07/19 07:50 Pulse 85 04/07/19 07:50 Resp 18 04/07/19 07:50 BP 142/76 H 04/07/19 09:13 Pulse Ox 92 L 04/07/19 07:50 Weight - Most Recent: 203 lb 9.6 oz I&O - Last 24 Hours: Intake & Output 04/06/19 04/07/19 04/07/19 22:59 06:59 14:59 Intake Total 50 Balance 50 Lab Results Last 24 Hours: Laboratory Results - last 24 hr 04/07/19 04/07/19 04/07/19 Range/Units 06:12 06:12 06:12 WBC 5.7 (5.0-10.0) 10^3/uL RBC 3.22 L (4.2-5.4) 10^6/uL Hgb 9.9 L D (12.0-16.0) g/dL Hct 30.8 L (37.0-47.0) % MCV 95.7 (80-100) fL MCH 30.7 (27.0-34.0) pg MCHC 32.1 L (33.0-35.0) g/dL Plt Count 354 D (150-450) 10^3/uL Neut % (Auto) 53.9 (42.2-75.2) % Lymph % (Auto) 25.2 (20.5-50.1) % [place] % (Auto) 15.2 H (2-8) % Eos % (Auto) 5.3 H (1.0-3.0) % Baso % (Auto) 0.4 (0.0-1.0) % ESR 44 H (0-20) mm/hr Creatinine 0.7 (0.6-1.3) mg/dL Est Cr Clr Drug Dosing 57.20 mL/min Estimated GFR (MDRD) > 60 ALT 6 L (10-60) IU/L C-Reactive Protein 0.6 (0.0-1.3) mg/dL Med Orders - Current: Current Medications Acetaminophen (Tylenol Extra Strength) 1,000 mg PO Q8HR [facility] Last Admin: 04/07/19 06:01 Dose: 1,000 mg Ascorbic Acid (Vitamin C) 1,000 mg PO 1400 [facility] Last Admin: 04/06/19 13:23 Dose: 1,000 mg Bumetanide (Bumex) 1 mg PO Q2D@0900 [facility] Last Admin: 04/06/19 09:26 Dose: 1 mg Cyclobenzaprine HCl (Flexeril) 10 mg PO TID PRN PRN Reason: Muscle Spasm Last Admin: 03/25/19 14:16 Dose: 10 mg Duloxetine HCl (Cymbalta) 30 mg PO DAILY [facility] Last Admin: 04/07/19 09:13 Dose: 30 mg Cefazolin Sodium/Dextrose 2 gm (/ Premix) 50 mls @ 100 mls/hr IV Q8HR [facility] Last Infusion: 04/07/19 06:42 Dose: Infused Lisinopril (Prinivil) 10 mg PO DAILY [facility] Last Admin: 04/07/19 09:13 Dose: 10 mg Magnesium Hydroxide (Milk Of Magnesia) 30 ml PO Q12H PRN PRN Reason: Constipation Methylcellulose (Citrucel) 500 mg PO TID [facility] Last Admin: 04/07/19 09:13 Dose: 500 mg Morphine Sulfate (Morphine) 2 mg IVPUSH Q2H PRN PRN Reason: Pain (severe 7-10) Ondansetron HCl (Zofran Odt) 4 mg PO Q4H PRN PRN Reason: nausea, able to take PO Oxybutynin Chloride (Oxybutynin Er) 10 mg PO BEDTIME [facility] Last Admin: 04/06/19 21:43 Dose: 10 mg Oxycodone HCl (Oxycodone) 5 mg PO Q4H PRN PRN Reason: Pain (moderate 4-6) Folic Acid 400 Mcg 1 each PO DAILY [facility] Last Admin: 04/07/19 09:15 Dose: 1 each Osteo Bi-Flex Tab 2 each PO DAILY@1400 [facility] Last Admin: 04/06/19 13:30 Dose: 2 each Lutein 20 Mg Softgel 1 each PO DAILY [facility] Last Admin: 04/07/19 09:15 Dose: 1 each Biotin 5,000 Mcg (Softgel) 1 each PO DAILY [facility] Last Admin: 04/07/19 09:15 Dose: 1 each Phenyleph/Shark Oil/Min Oil/Petrol (Preparation H Oint) 0 gm RECTAL TID PRN PRN Reason: Pain (mild 1-3) Potassium Chloride (Klor-Con 10) 10 meq PO TIDMEALS [facility] Last Admin: 04/07/19 09:14 Dose: 10 meq Rivaroxaban (Xarelto) 10 mg PO DAILY [facility] Last Admin: 04/07/19 09:14 Dose: 10 mg Rosuvastatin Calcium (Crestor) 20 mg PO BEDTIME [facility] Last Admin: 04/06/19 21:43 Dose: 20 mg Sodium Chloride (Saline Flush) 10 ml FLUSH ASDIRECTED PRN PRN Reason: Keep Vein Open Last Admin: 04/07/19 06:02 Dose: 10 ml Discontinued Medications Cefazolin Sodium/Dextrose 1 gm (/ Premix) 50 mls @ 100 mls/hr IV Q8HR [facility] Last Infusion: 03/25/19 14:56 Dose: Infused Cefazolin Sodium/Dextrose 1 gm (/ Premix) 50 mls @ 100 mls/hr IV ONETIME ONE Stop: 03/25/19 15:14 Last Admin: 03/25/19 14:57 Dose: Not Given Labetalol HCl (Normodyne) 200 mg PO BID [facility] Last Admin: 04/03/19 08:42 Dose: Not Given Oxycodone/Acetaminophen (Percocet 325-5 Mg) 1 tab PO Q4H PRN PRN Reason: Pain (moderate 4-6) - Exam Quality Assessment: DVT Prophylaxis General: Alert, Oriented HEENT: Pupils Equal, Pupils Reactive, EOMI, Mucous Membr. Moist/[place] Neck: Supple Lungs: Clear to Auscultation, Normal Respiratory Effort Cardiovascular: Regular Rate, Regular Rhythm GI/Abdominal Exam: Normal Bowel Sounds, Soft, Non-Tender, No Organomegaly, No Distention, No Abnormal Bruit, No Mass, Pelvis Stable (Female) Exam: Normal External Exam, Normal Speculum Exam, Normal Bimanual Exam Back Exam: Normal Inspection, Full Range of Motion Extremities: Normal Inspection, Normal Range of Motion, Non-Tender, No Pedal Edema, Normal Capillary Refill Skin: Warm, Dry, Intact Wound/Incisions: Healing Well Neurological: No New Focal Deficit Psy/Mental Status: Alert, Normal Affect, Normal Mood - Problem List Review Problem List Initiated/Reviewed/Updated: Yes - Plan Plan:: Right TKA septic arthritis -S/p I&D -Continue IV Cefazolin to complete 6 weeks. Will complete on 04/29/2019 -Continue PT/OT #HTN -Continue current care #CKD -Stable #General diet
[2019-04-07] MEDS: Ascorbic Acid 500 MG Tab PO SCH (14:15)
[2019-04-07] MEDS: Rosuvastatin 10 MG Tab PO SCH (20:49)
[2019-04-07] MEDS: Oxybutynin 5 MG Tab.ER PO SCH (20:49)
[2019-04-08] MEDS: Acetaminophen 500 MG Tab PO SCH ×3 (06:20→21:45)
[2019-04-08] MEDS: ceFAZolin 2 GM in Premix Bag 1 BAG IV SCH ×3 (06:20→21:47)
[2019-04-08] MEDS: Bumetanide 1 MG Tab PO SCH (08:21)
[2019-04-08] MEDS: Rivaroxaban 10 MG Tab PO SCH (08:21)
[2019-04-08] MEDS: Lisinopril 10 MG Tab PO SCH (08:22)
[2019-04-08] MEDS: Potassium Chloride 10 MEQ Tab.ER PO SCH ×3 (08:22→16:54)
[2019-04-08] MEDS: DULoxetine 30 MG Cap PO SCH (08:22)
[2019-04-08] MEDS: FOLIC ACID 400 MCG PO SCH (08:23)
[2019-04-08] MEDS: LUTEIN 20 MG PO SCH (08:24)
[2019-04-08] MEDS: Ascorbic Acid 500 MG Tab PO SCH (14:21)
[2019-04-08] MEDS: Sodium Chloride 0.9% 10 ML Syringe FLUSH PRN (14:22)
[2019-04-08] MEDS: Rosuvastatin 10 MG Tab PO SCH (21:45)
[2019-04-08] MEDS: Oxybutynin 5 MG Tab.ER PO SCH (21:45)
[2019-04-09] MEDS: ceFAZolin 2 GM in Premix Bag 1 BAG IV SCH ×4 (05:19→21:35)
[2019-04-09] MEDS: Acetaminophen 500 MG Tab PO SCH ×3 (05:25→21:36)
[2019-04-09] MEDS: Rivaroxaban 10 MG Tab PO SCH (08:26)
[2019-04-09] MEDS: Potassium Chloride 10 MEQ Tab.ER PO SCH ×3 (08:26→18:14)
[2019-04-09] MEDS: DULoxetine 30 MG Cap PO SCH (08:26)
[2019-04-09] MEDS: LUTEIN 20 MG PO SCH (08:27)
[2019-04-09] MEDS: Lisinopril 10 MG Tab PO SCH (08:27)
[2019-04-09] MEDS: FOLIC ACID 400 MCG PO SCH (08:28)
[2019-04-09] MEDS: Sodium Chloride 0.9% 10 ML Syringe FLUSH PRN (11:30)
[2019-04-09] MEDS: Ascorbic Acid 500 MG Tab PO SCH ×2 (12:00→13:07)
[2019-04-09] MEDS: Rosuvastatin 10 MG Tab PO SCH (21:36)
[2019-04-09] MEDS: Oxybutynin 5 MG Tab.ER PO SCH (21:37)
[2019-04-10] MEDS: Acetaminophen 500 MG Tab PO SCH ×3 (05:46→21:36)
[2019-04-10] MEDS: ceFAZolin 2 GM in Premix Bag 1 BAG IV SCH ×3 (05:49→21:35)
[2019-04-10] MEDS: Lisinopril 10 MG Tab PO SCH (08:36)
[2019-04-10] MEDS: DULoxetine 30 MG Cap PO SCH (08:36)
[2019-04-10] MEDS: Bumetanide 1 MG Tab PO SCH (08:36)
[2019-04-10] MEDS: FOLIC ACID 400 MCG PO SCH (08:37)
[2019-04-10] MEDS: Potassium Chloride 10 MEQ Tab.ER PO SCH ×3 (08:37→17:29)
[2019-04-10] MEDS: Rivaroxaban 10 MG Tab PO SCH (08:37)
[2019-04-10] MEDS: Sodium Chloride 0.9% 10 ML Syringe FLUSH PRN ×2 (08:38→13:57)
[2019-04-10] MEDS: LUTEIN 20 MG PO SCH (08:38)
[2019-04-10] MEDS: Ascorbic Acid 500 MG Tab PO SCH (13:57)
[2019-04-10] MEDS: Multivitamins, Therapeutic with Minerals Tab PO SCH (21:36)
[2019-04-10] MEDS: Rosuvastatin 10 MG Tab PO SCH (21:36)
[2019-04-10] MEDS: Oxybutynin 5 MG Tab.ER PO SCH (21:36)
[2019-04-11] MEDS: ceFAZolin 2 GM in Premix Bag 1 BAG IV SCH ×3 (05:53→21:52)
[2019-04-11] MEDS: Acetaminophen 500 MG Tab PO SCH ×3 (05:54→21:58)
[2019-04-11] MEDS: Potassium Chloride 10 MEQ Tab.ER PO SCH ×3 (08:17→17:24)
[2019-04-11] MEDS: Rivaroxaban 10 MG Tab PO SCH (10:04)
[2019-04-11] MEDS: DULoxetine 30 MG Cap PO SCH (10:04)
[2019-04-11] MEDS: Lisinopril 10 MG Tab PO SCH (10:05)
[2019-04-11] MEDS: LUTEIN 20 MG PO SCH (10:06)
[2019-04-11] MEDS: FOLIC ACID 400 MCG PO SCH (10:07)
[2019-04-11] MEDS: Ascorbic Acid 500 MG Tab PO SCH (13:49)
[2019-04-11] MEDS: Multivitamins, Therapeutic with Minerals Tab PO SCH (21:53)
[2019-04-11] MEDS: Rosuvastatin 10 MG Tab PO SCH (21:54)
[2019-04-11] MEDS: Oxybutynin 5 MG Tab.ER PO SCH (21:55)
[2019-04-12] MEDS: ceFAZolin 2 GM in Premix Bag 1 BAG IV SCH (06:06)
[2019-04-12] MEDS: Acetaminophen 500 MG Tab PO SCH ×3 (06:09→22:40)
[2019-04-12] MEDS: DULoxetine 30 MG Cap PO SCH (08:04)
[2019-04-12] MEDS: Rivaroxaban 10 MG Tab PO SCH (08:04)
[2019-04-12] MEDS: Bumetanide 1 MG Tab PO SCH (08:04)
[2019-04-12] MEDS: Lisinopril 10 MG Tab PO SCH (08:05)
[2019-04-12] MEDS: Potassium Chloride 10 MEQ Tab.ER PO SCH ×3 (08:05→17:04)
[2019-04-12] MEDS: FOLIC ACID 400 MCG PO SCH (08:06)
[2019-04-12] MEDS: LUTEIN 20 MG PO SCH (08:06)
[2019-04-12] MEDS: ceFAZolin 2 GM in Sodium Chloride 0.9% 50 ML IV SCH ×2 (13:19→22:42)
[2019-04-12] MEDS: Ascorbic Acid 500 MG Tab PO SCH (13:22)
[2019-04-12] MEDS: Sodium Chloride 0.9% 10 ML Syringe FLUSH PRN ×3 (14:05→23:12)
[2019-04-12] MEDS: Oxybutynin 5 MG Tab.ER PO SCH (22:39)
[2019-04-12] MEDS: Multivitamins, Therapeutic with Minerals Tab PO SCH (22:40)
[2019-04-12] MEDS: Rosuvastatin 10 MG Tab PO SCH (22:40)
[2019-04-13] MEDS: Acetaminophen 500 MG Tab PO SCH ×3 (05:54→22:11)
[2019-04-13] MEDS: Sodium Chloride 0.9% 10 ML Syringe FLUSH PRN ×4 (05:54→22:48)
[2019-04-13] MEDS: ceFAZolin 2 GM in Sodium Chloride 0.9% 50 ML IV SCH ×3 (05:55→22:13)
[2019-04-13] MEDS: LUTEIN 20 MG PO SCH (08:11)
[2019-04-13] MEDS: FOLIC ACID 400 MCG PO SCH (08:12)
[2019-04-13] MEDS: Potassium Chloride 10 MEQ Tab.ER PO SCH ×3 (08:12→17:08)
[2019-04-13] MEDS: DULoxetine 30 MG Cap PO SCH (08:12)
[2019-04-13] MEDS: Lisinopril 10 MG Tab PO SCH (08:13)
[2019-04-13] MEDS: Rivaroxaban 10 MG Tab PO SCH (08:13)
[2019-04-13] MEDS: Ascorbic Acid 500 MG Tab PO SCH (13:37)
--- NOTE | 2019-04-13 17:07 | PCM.PN ---
- General Info Date of Service: 04/13/19 Admission Dx/Problem (Free Text): Septic arthritis of Right TKA Subjective Update: Patient is admitted to [facility] from for septic arthritis of Right TKA to complete 6 week of IV Cefazolin. She is s/p I&D on 03/18/[address] Now off wound VAC. Patient stated that her right knee is improving. She said it's less swelling and denies redness. She denies fever, chills, headache, nausea, vomiting, chest pain, shortness of breath, palpitation, abdominal pain, constipation, diarrhea, urinary symptoms, unilateral weakness/numbness/tingling , rash, or any symptoms of concern. - Patient Data Vitals - Most Recent: Last Vital Signs Temp 36.4 C 04/13/19 08:09 Pulse 84 04/13/19 08:09 Resp 18 04/13/19 08:09 BP 136/66 04/13/19 08:13 Pulse Ox 95 04/13/19 08:09 Weight - Most Recent: 92.646 kg I&O - Last 24 Hours: Intake & Output 04/13/19 04/13/19 04/13/19 06:59 14:59 22:59 Intake Total 98 620 Balance 98 620 Med Orders - Current: Current Medications Acetaminophen (Tylenol Extra Strength) 1,000 mg PO Q8HR [facility] Last Admin: 04/13/19 13:36 Dose: 1,000 mg Ascorbic Acid (Vitamin C) 1,000 mg PO 1400 [facility] Last Admin: 04/13/19 13:37 Dose: 1,000 mg Bumetanide (Bumex) 1 mg PO Q2D@0900 [facility] Last Admin: 04/12/19 08:04 Dose: 1 mg Cyclobenzaprine HCl (Flexeril) 10 mg PO TID PRN PRN Reason: Muscle Spasm Last Admin: 03/25/19 14:16 Dose: 10 mg Duloxetine HCl (Cymbalta) 30 mg PO DAILY [facility] Last Admin: 04/13/19 08:12 Dose: 30 mg Cefazolin Sodium 2 gm/ Sodium (Chloride) 50 mls @ 100 mls/hr IV Q8HR [facility] Last Admin: 04/13/19 13:38 Dose: 100 mls/hr Lisinopril (Prinivil) 10 mg PO DAILY [facility] Last Admin: 04/13/19 08:13 Dose: 10 mg Magnesium Hydroxide (Milk Of Magnesia) 30 ml PO Q12H PRN PRN Reason: Constipation Methylcellulose (Citrucel) 500 mg PO TID [facility] Last Admin: 04/13/19 13:36 Dose: 500 mg Morphine Sulfate (Morphine) 2 mg IVPUSH Q2H PRN PRN Reason: Pain (severe 7-10) Multivitamins/Minerals (Vitamins And Minerals) 1 tab PO BEDTIME [facility] Last Admin: 04/12/19 22:40 Dose: 1 tab Ondansetron HCl (Zofran Odt) 4 mg PO Q4H PRN PRN Reason: nausea, able to take PO Oxybutynin Chloride (Oxybutynin Er) 10 mg PO BEDTIME [facility] Last Admin: 04/12/19 22:39 Dose: 10 mg Oxycodone HCl (Oxycodone) 5 mg PO Q4H PRN PRN Reason: Pain (moderate 4-6) Folic Acid 400 Mcg 1 each PO DAILY [facility] Last Admin: 04/13/19 08:12 Dose: 1 each Osteo Bi-Flex Tab 2 each PO DAILY@1400 [facility] Last Admin: 04/13/19 13:38 Dose: 2 each Lutein 20 Mg Softgel 1 each PO DAILY [facility] Last Admin: 04/13/19 08:11 Dose: 1 each Biotin 5,000 Mcg (Softgel) 1 each PO DAILY [facility] Last Admin: 04/13/19 08:12 Dose: 1 each Phenyleph/Shark Oil/Min Oil/Petrol (Preparation H Oint) 0 gm RECTAL TID PRN PRN Reason: Pain (mild 1-3) Potassium Chloride (Klor-Con 10) 10 meq PO TIDMEALS [facility] Last Admin: 04/13/19 13:36 Dose: 10 meq Rivaroxaban (Xarelto) 10 mg PO DAILY [facility] Last Admin: 04/13/19 08:13 Dose: 10 mg Rosuvastatin Calcium (Crestor) 20 mg PO BEDTIME [facility] Last Admin: 04/12/19 22:40 Dose: 20 mg Sodium Chloride (Saline Flush) 10 ml FLUSH ASDIRECTED PRN PRN Reason: Keep Vein Open Last Admin: 04/13/19 13:38 Dose: 10 ml Discontinued Medications Cefazolin Sodium/Dextrose 1 gm (/ Premix) 50 mls @ 100 mls/hr IV Q8HR [facility] Last Infusion: 03/25/19 14:56 Dose: Infused Cefazolin Sodium/Dextrose 1 gm (/ Premix) 50 mls @ 100 mls/hr IV ONETIME ONE Stop: 03/25/19 15:14 Last Admin: 03/25/19 14:57 Dose: Not Given Cefazolin Sodium/Dextrose 2 gm (/ Premix) 50 mls @ 100 mls/hr IV Q8HR [facility] Last Admin: 04/12/19 06:06 Dose: 100 mls/hr Labetalol HCl (Normodyne) 200 mg PO BID [facility] Last Admin: 04/03/19 08:42 Dose: Not Given Oxycodone/Acetaminophen (Percocet 325-5 Mg) 1 tab PO Q4H PRN PRN Reason: Pain (moderate 4-6) - Exam General: Alert, Oriented, Cooperative, No Acute Distress. No: Mild Distress, Moderate Distress, Severe Distress, Sedated, Lethargic, Obtunded HEENT: Pupils Equal, Pupils Reactive, EOMI, Mucous Membr. Moist/[place] Neck: Supple, Trachea Midline, No JVD Lungs: Clear to Auscultation, Normal Respiratory Effort Cardiovascular: Regular Rate, Regular Rhythm GI/Abdominal Exam: Soft, Non-Tender, No Distention, No Mass (Female) Exam: Deferred Back Exam: Normal Inspection, Full Range of Motion Extremities: Non-Tender, No Pedal Edema, Normal Capillary Refill, Other (Right knee exam: Has some swelling but no redness, fluctuation, or induration. Fair range of motion) Skin: Warm, Dry, Intact Wound/Incisions: Healing Well Neurological: No New Focal Deficit Psy/Mental Status: Alert, Normal Affect, Normal Mood - Problem List Review Problem List Initiated/Reviewed/Updated: Yes - Plan Plan:: 78-year-old female with past medical history of hypertension, CKD, bilateral total knee replacement who had right total knee replacement in last October and last February she had right knee septic arthritis with oxacillin susceptible Staphylococcus Lugdunensis, s/p I&D on 03/18/19 and now on Cefazolin to complete 6 week of IV Cefazolin. Therefore was [facility] bed for the IV antibiotic treatment #Right TKA septic arthritis -S/p I&D -Wound culture grew oxacillin susceptible Staphylococcus Lugdunensis, -Continue IV Cefazolin to complete 6 weeks. Will be completed on 04/29/2019 -Continue PT/OT #Essential hypertension -Continue current medications #CKD -Stable -Avoid nephrotoxic medications #DVT prophylaxis: She is on xarelto #General diet
[2019-04-13] MEDS: Rosuvastatin 10 MG Tab PO SCH (22:11)
[2019-04-13] MEDS: Oxybutynin 5 MG Tab.ER PO SCH (22:12)
[2019-04-13] MEDS: Multivitamins, Therapeutic with Minerals Tab PO SCH (22:12)
[2019-04-14] MEDS: Acetaminophen 500 MG Tab PO SCH ×3 (05:30→21:54)
[2019-04-14] MEDS: ceFAZolin 2 GM in Sodium Chloride 0.9% 50 ML IV SCH ×3 (05:31→21:51)
[2019-04-14] MEDS: Sodium Chloride 0.9% 10 ML Syringe FLUSH PRN ×4 (05:31→21:50)
[2019-04-14] MEDS: Lisinopril 10 MG Tab PO SCH (08:21)
[2019-04-14] MEDS: Bumetanide 1 MG Tab PO SCH (08:21)
[2019-04-14] MEDS: DULoxetine 30 MG Cap PO SCH (08:21)
[2019-04-14] MEDS: Rivaroxaban 10 MG Tab PO SCH (08:21)
[2019-04-14] MEDS: Potassium Chloride 10 MEQ Tab.ER PO SCH ×3 (08:21→17:30)
[2019-04-14] MEDS: FOLIC ACID 400 MCG PO SCH (08:21)
[2019-04-14] MEDS: LUTEIN 20 MG PO SCH (08:21)
[2019-04-14] MEDS: Ascorbic Acid 500 MG Tab PO SCH (13:10)
[2019-04-14] MEDS: Rosuvastatin 10 MG Tab PO SCH (20:41)
[2019-04-14] MEDS: Oxybutynin 5 MG Tab.ER PO SCH (20:42)
[2019-04-14] MEDS: Multivitamins, Therapeutic with Minerals Tab PO SCH (20:42)
[2019-04-15] MEDS: Sodium Chloride 0.9% 10 ML Syringe FLUSH PRN ×3 (06:21→13:54)
[2019-04-15] MEDS: ceFAZolin 2 GM in Sodium Chloride 0.9% 50 ML IV SCH ×3 (06:22→22:16)
[2019-04-15] MEDS: Acetaminophen 500 MG Tab PO SCH ×3 (06:27→22:16)
[2019-04-15] MEDS: Lisinopril 10 MG Tab PO SCH (09:45)
[2019-04-15] MEDS: Potassium Chloride 10 MEQ Tab.ER PO SCH ×3 (09:46→17:44)
[2019-04-15] MEDS: DULoxetine 30 MG Cap PO SCH (09:46)
[2019-04-15] MEDS: Rivaroxaban 10 MG Tab PO SCH (09:46)
[2019-04-15] MEDS: LUTEIN 20 MG PO SCH (09:46)
[2019-04-15] MEDS: FOLIC ACID 400 MCG PO SCH (09:46)
[2019-04-15] MEDS: Ascorbic Acid 500 MG Tab PO SCH (13:54)
[2019-04-15] MEDS: Multivitamins, Therapeutic with Minerals Tab PO SCH (22:15)
[2019-04-15] MEDS: Oxybutynin 5 MG Tab.ER PO SCH (22:15)
[2019-04-15] MEDS: Rosuvastatin 10 MG Tab PO SCH (22:16)
[2019-04-16] MEDS: Acetaminophen 500 MG Tab PO SCH ×3 (06:07→22:19)
[2019-04-16] MEDS: ceFAZolin 2 GM in Sodium Chloride 0.9% 50 ML IV SCH ×3 (06:08→22:17)
[2019-04-16] MEDS: DULoxetine 30 MG Cap PO SCH (09:13)
[2019-04-16] MEDS: Lisinopril 10 MG Tab PO SCH (09:13)
[2019-04-16] MEDS: Rivaroxaban 10 MG Tab PO SCH (09:13)
[2019-04-16] MEDS: Potassium Chloride 10 MEQ Tab.ER PO SCH ×3 (09:14→17:15)
[2019-04-16] MEDS: Bumetanide 1 MG Tab PO SCH (09:14)
[2019-04-16] MEDS: FOLIC ACID 400 MCG PO SCH (09:15)
[2019-04-16] MEDS: LUTEIN 20 MG PO SCH (09:15)
[2019-04-16] MEDS: Ascorbic Acid 500 MG Tab PO SCH (13:46)
[2019-04-16] MEDS: Sodium Chloride 0.9% 10 ML Syringe FLUSH PRN ×2 (13:47→14:31)
[2019-04-16] MEDS: Multivitamins, Therapeutic with Minerals Tab PO SCH (22:19)
[2019-04-16] MEDS: Oxybutynin 5 MG Tab.ER PO SCH (22:19)
[2019-04-16] MEDS: Rosuvastatin 10 MG Tab PO SCH (22:19)
[2019-04-17] MEDS: Acetaminophen 500 MG Tab PO SCH ×3 (05:27→22:09)
[2019-04-17] MEDS: ceFAZolin 2 GM in Sodium Chloride 0.9% 50 ML IV SCH ×3 (05:28→22:10)
[2019-04-17] MEDS: FOLIC ACID 400 MCG PO SCH (08:19)
[2019-04-17] MEDS: Potassium Chloride 10 MEQ Tab.ER PO SCH ×3 (08:19→17:12)
[2019-04-17] MEDS: DULoxetine 30 MG Cap PO SCH (08:19)
[2019-04-17] MEDS: LUTEIN 20 MG PO SCH (08:19)
[2019-04-17] MEDS: Lisinopril 10 MG Tab PO SCH (08:19)
[2019-04-17] MEDS: Rivaroxaban 10 MG Tab PO SCH (08:19)
[2019-04-17] MEDS: Ascorbic Acid 500 MG Tab PO SCH (13:48)
[2019-04-17] MEDS: Oxybutynin 5 MG Tab.ER PO SCH (20:54)
[2019-04-17] MEDS: Multivitamins, Therapeutic with Minerals Tab PO SCH (20:54)
[2019-04-17] MEDS: Rosuvastatin 10 MG Tab PO SCH (20:54)
[2019-04-18] MEDS: Acetaminophen 500 MG Tab PO SCH ×3 (05:51→21:50)
[2019-04-18] MEDS: ceFAZolin 2 GM in Sodium Chloride 0.9% 50 ML IV SCH ×3 (05:52→21:48)
[2019-04-18] MEDS: DULoxetine 30 MG Cap PO SCH (08:45)
[2019-04-18] MEDS: Bumetanide 1 MG Tab PO SCH (08:45)
[2019-04-18] MEDS: FOLIC ACID 400 MCG PO SCH (08:46)
[2019-04-18] MEDS: Potassium Chloride 10 MEQ Tab.ER PO SCH ×3 (08:46→16:22)
[2019-04-18] MEDS: Rivaroxaban 10 MG Tab PO SCH (08:46)
[2019-04-18] MEDS: LUTEIN 20 MG PO SCH (08:46)
[2019-04-18] MEDS: Lisinopril 10 MG Tab PO SCH (08:50)
[2019-04-18] MEDS: Ascorbic Acid 500 MG Tab PO SCH (13:28)
[2019-04-18] MEDS: Rosuvastatin 10 MG Tab PO SCH (21:49)
[2019-04-18] MEDS: Multivitamins, Therapeutic with Minerals Tab PO SCH (21:49)
[2019-04-18] MEDS: Oxybutynin 5 MG Tab.ER PO SCH (21:51)
[2019-04-19] MEDS: ceFAZolin 2 GM in Sodium Chloride 0.9% 50 ML IV SCH ×3 (05:46→21:50)
[2019-04-19] MEDS: Acetaminophen 500 MG Tab PO SCH ×3 (06:20→21:54)
[2019-04-19] MEDS: Potassium Chloride 10 MEQ Tab.ER PO SCH ×3 (08:28→17:07)
[2019-04-19] MEDS: Lisinopril 10 MG Tab PO SCH (08:28)
[2019-04-19] MEDS: DULoxetine 30 MG Cap PO SCH (08:29)
[2019-04-19] MEDS: Rivaroxaban 10 MG Tab PO SCH (08:29)
[2019-04-19] MEDS: FOLIC ACID 400 MCG PO SCH (08:29)
[2019-04-19] MEDS: LUTEIN 20 MG PO SCH (08:30)
[2019-04-19] MEDS: amLODIPine 5 MG Tab PO SCH (12:16)
[2019-04-19] MEDS: Ascorbic Acid 500 MG Tab PO SCH (14:07)
[2019-04-19] MEDS: Sodium Chloride 0.9% 10 ML Syringe FLUSH PRN ×3 (14:08→22:31)
--- NOTE | 2019-04-19 16:18 | PN ---
DATE: 04/19/2019 HISTORY OF PRESENT ILLNESS: Ms. Esperanza Hansen is a 78-year-old female with a medical history significant for hypertension, hyperlipidemia, chronic kidney disease, recent right total knee arthroplasty on 10/26/2018 and had complications with septic arthritis, requiring debridement of the right knee on 03/16/2019, and underwent irrigation and excisional debridement with the right knee with polyethylene exchange and application of an incisional VAC on 03/20/2019 and is currently admitted to [facility] Bed for continued IV antibiotic course. She will need antibiotics until 04/29/2019. For the last 24 hours the patient denies any ongoing chest pain. No shortness of breath. No abdominal pain. No nausea. No vomiting. No diarrhea. REVIEW OF SYSTEMS: Cardiovascular, respiratory, gastrointestinal, neurology, and constitutional were all evaluated. PHYSICAL EXAMINATION: Vitals: Temperature of 98.1, pulse of 94, blood pressure 135/77, respiratory rate of 18, and saturating 93%. General Appearance: The patient is well oriented to time, place, and person. Follows commands spontaneously. Cardiovascular System: S1 and S2 heard with normal intensity. No gallops. Respiratory System: Clear to auscultation bilaterally. No wheeze. No crepitations. Abdomen: Soft. Bowel sounds positive. Nontender. No rigidity. Extremities: Mild edema in bilateral lower extremities. MEDICATIONS: Reviewed. Continue with Norvasc 5 mg daily, vitamin C 1000 mg daily, Bumex 1 mg q.2 days, cefazolin IV q.8 hourly, Flexeril 10 mg 3 times a day as needed for muscle spasms, Cymbalta 30 mg daily, lisinopril 10 mg daily, morphine 2 mg IV q.2 hours as needed for pain, oxybutynin 10 mg at bedtime, oxycodone 5 mg every 4 hours as needed for pain, folic acid 400 mcg daily, potassium chloride 10 mEq 3 times a day, Xarelto 10 mg daily, Crestor 20 mg at bedtime. LABS: Reviewed. ASSESSMENT: 1. Septic arthritis, needing prolonged IV antibiotic regimen. 2. Hypertension. 3. Hyperlipidemia. 4. Gastroesophageal reflux disease. 5. Chronic kidney disease. 6. Obesity. PLAN: 1. Right total knee arthroplasty septic arthritis. She is status post polyethylene exchange on 03/20/2019 and is currently on IV antibiotics, cefazolin, for a total of 6 weeks. She will be done with antibiotic on 04/29/2019. Continue with physical therapy and occupational therapy. 2. Hypertension, remains stable. Continue with current antihypertensive medications. 3. DVT prophylaxis. Continue Xarelto for DVT prophylaxis. 4. Chronic kidney disease, remains stable. Try to avoid nephrotoxic agents. Be cautious regarding volume status. [facility] /[id number] ARIANNA
[2019-04-19] MEDS: Oxybutynin 5 MG Tab.ER PO SCH (20:44)
[2019-04-19] MEDS: Multivitamins, Therapeutic with Minerals Tab PO SCH (20:44)
[2019-04-19] MEDS: Rosuvastatin 10 MG Tab PO SCH (20:45)
[2019-04-20] MEDS: Sodium Chloride 0.9% 10 ML Syringe FLUSH PRN ×4 (05:58→21:31)
[2019-04-20] MEDS: ceFAZolin 2 GM in Sodium Chloride 0.9% 50 ML IV SCH ×3 (05:59→21:31)
[2019-04-20] MEDS: Acetaminophen 500 MG Tab PO SCH ×3 (06:02→21:36)
[2019-04-20] MEDS: LUTEIN 20 MG PO SCH (08:29)
[2019-04-20] MEDS: amLODIPine 5 MG Tab PO SCH (08:30)
[2019-04-20] MEDS: Potassium Chloride 10 MEQ Tab.ER PO SCH ×3 (08:30→17:27)
[2019-04-20] MEDS: FOLIC ACID 400 MCG PO SCH (08:30)
[2019-04-20] MEDS: Rivaroxaban 10 MG Tab PO SCH (08:31)
[2019-04-20] MEDS: Lisinopril 10 MG Tab PO SCH (08:31)
[2019-04-20] MEDS: DULoxetine 30 MG Cap PO SCH (08:31)
[2019-04-20] MEDS: Bumetanide 1 MG Tab PO SCH (08:31)
[2019-04-20] MEDS: Ascorbic Acid 500 MG Tab PO SCH (13:33)
[2019-04-20] MEDS: Oxybutynin 5 MG Tab.ER PO SCH (21:35)
[2019-04-20] MEDS: Rosuvastatin 10 MG Tab PO SCH (21:35)
[2019-04-20] MEDS: Multivitamins, Therapeutic with Minerals Tab PO SCH (21:36)
[2019-04-21] MEDS: Sodium Chloride 0.9% 10 ML Syringe FLUSH PRN ×5 (05:28→22:10)
[2019-04-21] MEDS: Acetaminophen 500 MG Tab PO SCH ×3 (05:33→21:32)
[2019-04-21] MEDS: ceFAZolin 2 GM in Sodium Chloride 0.9% 50 ML IV SCH ×3 (05:38→21:33)
[2019-04-21] MEDS: Potassium Chloride 10 MEQ Tab.ER PO SCH ×3 (08:15→17:11)
[2019-04-21] MEDS: DULoxetine 30 MG Cap PO SCH (08:15)
[2019-04-21] MEDS: amLODIPine 5 MG Tab PO SCH (08:16)
[2019-04-21] MEDS: FOLIC ACID 400 MCG PO SCH (08:16)
[2019-04-21] MEDS: Rivaroxaban 10 MG Tab PO SCH (08:16)
[2019-04-21] MEDS: LUTEIN 20 MG PO SCH (08:16)
[2019-04-21] MEDS: Lisinopril 10 MG Tab PO SCH (08:17)
[2019-04-21] MEDS: Ascorbic Acid 500 MG Tab PO SCH (13:26)
[2019-04-21] MEDS: Multivitamins, Therapeutic with Minerals Tab PO SCH (20:59)
[2019-04-21] MEDS: Rosuvastatin 10 MG Tab PO SCH (20:59)
[2019-04-21] MEDS: Oxybutynin 5 MG Tab.ER PO SCH (21:00)
[2019-04-22] MEDS: Sodium Chloride 0.9% 10 ML Syringe FLUSH PRN ×2 (05:48→06:30)
[2019-04-22] MEDS: ceFAZolin 2 GM in Sodium Chloride 0.9% 50 ML IV SCH ×2 (05:49→15:57)
[2019-04-22] MEDS: Acetaminophen 500 MG Tab PO SCH ×3 (05:52→22:29)
[2019-04-22] MEDS: Bumetanide 1 MG Tab PO SCH (08:29)
[2019-04-22] MEDS: DULoxetine 30 MG Cap PO SCH (08:29)
[2019-04-22] MEDS: Potassium Chloride 10 MEQ Tab.ER PO SCH ×3 (08:29→17:34)
[2019-04-22] MEDS: Rivaroxaban 10 MG Tab PO SCH (08:29)
[2019-04-22] MEDS: amLODIPine 5 MG Tab PO SCH (08:30)
[2019-04-22] MEDS: Lisinopril 10 MG Tab PO SCH (08:31)
[2019-04-22] MEDS: FOLIC ACID 400 MCG PO SCH (08:31)
[2019-04-22] MEDS: LUTEIN 20 MG PO SCH (08:31)
[2019-04-22] MEDS: Ascorbic Acid 500 MG Tab PO SCH (13:00)
[2019-04-22] MEDS: ceFAZolin 2 GM in Premix Bag 1 BAG IV SCH ×2 (15:36→22:30)
[2019-04-22] MEDS: Multivitamins, Therapeutic with Minerals Tab PO SCH (20:38)
[2019-04-22] MEDS: Oxybutynin 5 MG Tab.ER PO SCH (20:38)
[2019-04-22] MEDS: Rosuvastatin 10 MG Tab PO SCH (20:40)
[2019-04-23] MEDS: Acetaminophen 500 MG Tab PO SCH ×3 (05:41→21:49)
[2019-04-23] MEDS: ceFAZolin 2 GM in Premix Bag 1 BAG IV SCH ×3 (05:43→21:50)
[2019-04-23] MEDS: DULoxetine 30 MG Cap PO SCH (08:20)
[2019-04-23] MEDS: amLODIPine 5 MG Tab PO SCH (08:20)
[2019-04-23] MEDS: Potassium Chloride 10 MEQ Tab.ER PO SCH ×3 (08:20→18:13)
[2019-04-23] MEDS: Lisinopril 10 MG Tab PO SCH (08:20)
[2019-04-23] MEDS: Rivaroxaban 10 MG Tab PO SCH (08:20)
[2019-04-23] MEDS: LUTEIN 20 MG PO SCH (08:22)
[2019-04-23] MEDS: FOLIC ACID 400 MCG PO SCH (08:22)
[2019-04-23] MEDS: Ascorbic Acid 500 MG Tab PO SCH (13:35)
[2019-04-23] MEDS: Sodium Chloride 0.9% 10 ML Syringe FLUSH PRN (13:36)
[2019-04-23] MEDS: Oxybutynin 5 MG Tab.ER PO SCH (20:38)
[2019-04-23] MEDS: Rosuvastatin 10 MG Tab PO SCH (20:39)
[2019-04-23] MEDS: Multivitamins, Therapeutic with Minerals Tab PO SCH (20:40)
[2019-04-24] MEDS: Acetaminophen 500 MG Tab PO SCH ×3 (05:31→21:25)
[2019-04-24] MEDS: ceFAZolin 2 GM in Premix Bag 1 BAG IV SCH ×3 (05:32→21:29)
[2019-04-24] MEDS: DULoxetine 30 MG Cap PO SCH (09:01)
[2019-04-24] MEDS: Lisinopril 10 MG Tab PO SCH (09:01)
[2019-04-24] MEDS: Potassium Chloride 10 MEQ Tab.ER PO SCH ×3 (09:01→17:53)
[2019-04-24] MEDS: amLODIPine 5 MG Tab PO SCH (09:01)
[2019-04-24] MEDS: Rivaroxaban 10 MG Tab PO SCH (09:02)
[2019-04-24] MEDS: FOLIC ACID 400 MCG PO SCH (09:02)
[2019-04-24] MEDS: LUTEIN 20 MG PO SCH (09:02)
[2019-04-24] MEDS: Bumetanide 1 MG Tab PO SCH (09:02)
[2019-04-24] MEDS: Ascorbic Acid 500 MG Tab PO SCH (13:23)
[2019-04-24] MEDS: Sodium Chloride 0.9% 10 ML Syringe FLUSH PRN (13:23)
[2019-04-24] MEDS: Multivitamins, Therapeutic with Minerals Tab PO SCH (21:25)
[2019-04-24] MEDS: Rosuvastatin 10 MG Tab PO SCH (21:25)
[2019-04-24] MEDS: Oxybutynin 5 MG Tab.ER PO SCH (21:25)
[2019-04-25] MEDS: Acetaminophen 500 MG Tab PO SCH ×3 (05:43→21:34)
[2019-04-25] MEDS: ceFAZolin 2 GM in Premix Bag 1 BAG IV SCH ×3 (05:44→21:35)
[2019-04-25] MEDS: LUTEIN 20 MG PO SCH (08:30)
[2019-04-25] MEDS: Lisinopril 10 MG Tab PO SCH (08:31)
[2019-04-25] MEDS: FOLIC ACID 400 MCG PO SCH (08:31)
[2019-04-25] MEDS: Potassium Chloride 10 MEQ Tab.ER PO SCH ×3 (08:32→17:47)
[2019-04-25] MEDS: Rivaroxaban 10 MG Tab PO SCH (08:33)
[2019-04-25] MEDS: amLODIPine 5 MG Tab PO SCH (08:34)
[2019-04-25] MEDS: DULoxetine 30 MG Cap PO SCH (08:34)
[2019-04-25] MEDS: Ascorbic Acid 500 MG Tab PO SCH (14:57)
--- NOTE | 2019-04-25 17:28 | PCM.PN ---
- General Info Date of Service: 04/25/19 Admission Dx/Problem (Free Text): Septic arthritis of Right TKA . Subjective Update: Patient is admitted to [facility] from [facility] for septic arthritis of Right TKA to complete 6 week of IV Cefazolin. She is s/p I&D on 03/18/[address] Now off wound VAC. She was seen and evaluated today. No complaints today. She is doing ok. No fever or chills. Functional Status: Reports: Pain Controlled - Review of Systems General: Reports: No Symptoms HEENT: Reports: No Symptoms Pulmonary: Reports: No Symptoms Cardiovascular: Reports: No Symptoms Gastrointestinal: Reports: No Symptoms Genitourinary: Reports: No Symptoms Musculoskeletal: Reports: No Symptoms Skin: Reports: No Symptoms Neurological: Reports: No Symptoms Psychiatric: Reports: No Symptoms - Patient Data Vitals - Most Recent: Last Vital Signs Temp 98.2 F 04/24/19 19:36 Pulse 105 H 04/24/19 19:36 Resp 18 04/24/19 19:36 BP 138/72 04/25/19 08:34 Pulse Ox 97 04/24/19 19:36 Weight - Most Recent: 203 lb I&O - Last 24 Hours: Intake & Output 04/25/19 04/25/19 04/25/19 06:59 14:59 22:59 Intake Total 42 970 Balance 42 970 Med Orders - Current: Current Medications Acetaminophen (Tylenol Extra Strength) 1,000 mg PO Q8HR [facility] Last Admin: 04/25/19 13:09 Dose: 1,000 mg Amlodipine Besylate (Norvasc) 5 mg PO DAILY [facility] Last Admin: 04/25/19 08:34 Dose: 5 mg Ascorbic Acid (Vitamin C) 1,000 mg PO 1400 [facility] Last Admin: 04/25/19 14:57 Dose: 1,000 mg Bumetanide (Bumex) 1 mg PO Q2D@0900 [facility] Last Admin: 04/24/19 09:02 Dose: 1 mg Cyclobenzaprine HCl (Flexeril) 10 mg PO TID PRN PRN Reason: Muscle Spasm Last Admin: 03/25/19 14:16 Dose: 10 mg Duloxetine HCl (Cymbalta) 30 mg PO DAILY [facility] Last Admin: 04/25/19 08:34 Dose: 30 mg Cefazolin Sodium/Dextrose 2 gm (/ Premix) 50 mls @ 100 mls/hr IV Q8HR [facility] Last Admin: 04/25/19 13:12 Dose: 100 mls/hr Lisinopril (Prinivil) 10 mg PO DAILY [facility] Last Admin: 04/25/19 08:31 Dose: 10 mg Magnesium Hydroxide (Milk Of Magnesia) 30 ml PO Q12H PRN PRN Reason: Constipation Methylcellulose (Citrucel) 500 mg PO TID [facility] Last Admin: 04/25/19 13:08 Dose: 500 mg Morphine Sulfate (Morphine) 2 mg IVPUSH Q2H PRN PRN Reason: Pain (severe 7-10) Multivitamins/Minerals (Vitamins And Minerals) 1 tab PO BEDTIME [facility] Last Admin: 04/24/19 21:25 Dose: 1 tab Ondansetron HCl (Zofran Odt) 4 mg PO Q4H PRN PRN Reason: nausea, able to take PO Oxybutynin Chloride (Oxybutynin Er) 10 mg PO BEDTIME [facility] Last Admin: 04/24/19 21:25 Dose: 10 mg Oxycodone HCl (Oxycodone) 5 mg PO Q4H PRN PRN Reason: Pain (moderate 4-6) Folic Acid 400 Mcg 1 each PO DAILY [facility] Last Admin: 04/25/19 08:31 Dose: 1 each Osteo Bi-Flex Tab 2 each PO DAILY@1400 [facility] Last Admin: 04/25/19 13:08 Dose: 2 each Lutein 20 Mg Softgel 1 each PO DAILY [facility] Last Admin: 04/25/19 08:30 Dose: 1 each Biotin 5,000 Mcg (Softgel) 1 each PO DAILY [facility] Last Admin: 04/25/19 08:30 Dose: 1 each Phenyleph/Shark Oil/Min Oil/Petrol (Preparation H Oint) 0 gm RECTAL TID PRN PRN Reason: Pain (mild 1-3) Potassium Chloride (Klor-Con 10) 10 meq PO TIDMEALS [facility] Last Admin: 04/25/19 13:08 Dose: 10 meq Rivaroxaban (Xarelto) 10 mg PO DAILY [facility] Last Admin: 04/25/19 08:33 Dose: 10 mg Rosuvastatin Calcium (Crestor) 20 mg PO BEDTIME [facility] Last Admin: 04/24/19 21:25 Dose: 20 mg Sodium Chloride (Saline Flush) 10 ml FLUSH ASDIRECTED PRN PRN Reason: Keep Vein Open Last Admin: 04/24/19 13:23 Dose: 10 ml Discontinued Medications Cefazolin Sodium/Dextrose 1 gm (/ Premix) 50 mls @ 100 mls/hr IV Q8HR [facility] Last Infusion: 03/25/19 14:56 Dose: Infused Cefazolin Sodium/Dextrose 1 gm (/ Premix) 50 mls @ 100 mls/hr IV ONETIME ONE Stop: 03/25/19 15:14 Last Admin: 03/25/19 14:57 Dose: Not Given Cefazolin Sodium/Dextrose 2 gm (/ Premix) 50 mls @ 100 mls/hr IV Q8HR [facility] Last Admin: 04/12/19 06:06 Dose: 100 mls/hr Cefazolin Sodium 2 gm/ Sodium (Chloride) 50 mls @ 100 mls/hr IV Q8HR [facility] Last Admin: 04/22/19 15:57 Dose: Not Given Labetalol HCl (Normodyne) 200 mg PO BID [facility] Last Admin: 04/03/19 08:42 Dose: Not Given Oxycodone/Acetaminophen (Percocet 325-5 Mg) 1 tab PO Q4H PRN PRN Reason: Pain (moderate 4-6) - Exam Quality Assessment: DVT Prophylaxis General: Alert, Oriented HEENT: Pupils Equal, Pupils Reactive, EOMI, Mucous Membr. Moist/[place] Neck: Supple Lungs: Clear to Auscultation, Normal Respiratory Effort Cardiovascular: Regular Rate, Regular Rhythm GI/Abdominal Exam: Normal Bowel Sounds, Soft, Non-Tender, No Organomegaly, No Distention, No Abnormal Bruit, No Mass, Pelvis Stable (Female) Exam: Normal External Exam, Normal Speculum Exam, Normal Bimanual Exam Back Exam: Normal Inspection, Full Range of Motion Extremities: Normal Inspection, Normal Range of Motion, Non-Tender, No Pedal Edema, Normal Capillary Refill Skin: Warm, Dry, Intact Wound/Incisions: Healing Well Neurological: No New Focal Deficit Psy/Mental Status: Alert, Normal Affect, Normal Mood - Problem List Review Problem List Initiated/Reviewed/Updated: Yes - Plan Plan:: 78-year-old female with past medical history of hypertension, CKD, bilateral total knee replacement who had right total knee replacement in last October and last February she had right knee septic arthritis with oxacillin susceptible Staphylococcus Lugdunensis, s/p I&D on 03/18/19 and now on Cefazolin to complete 6 week of IV Cefazolin. Therefore was admitted to swing bed for the IV antibiotic treatment #Right TKA septic arthritis -S/p I&D -Wound culture grew oxacillin susceptible Staphylococcus Lugdunensis, -Continue IV Cefazolin to complete 6 weeks. Will be completed on 04/29/2019 -Continue PT/OT #Essential hypertension -Continue current medications #CKD -Stable -Avoid nephrotoxic medications #DVT prophylaxis: She is on xarelto #General diet
[2019-04-25] MEDS: Multivitamins, Therapeutic with Minerals Tab PO SCH (20:29)
[2019-04-25] MEDS: Rosuvastatin 10 MG Tab PO SCH (20:30)
[2019-04-25] MEDS: Oxybutynin 5 MG Tab.ER PO SCH (20:30)
[2019-04-25] MEDS: Sodium Chloride 0.9% 10 ML Syringe FLUSH PRN (21:35)
[2019-04-26] MEDS: Acetaminophen 500 MG Tab PO SCH ×3 (05:35→21:37)
[2019-04-26] MEDS: Sodium Chloride 0.9% 10 ML Syringe FLUSH PRN ×4 (05:37→22:10)
[2019-04-26] MEDS: ceFAZolin 2 GM in Premix Bag 1 BAG IV SCH ×3 (05:37→21:37)
[2019-04-26] MEDS: Potassium Chloride 10 MEQ Tab.ER PO SCH ×3 (08:23→17:36)
[2019-04-26] MEDS: Rivaroxaban 10 MG Tab PO SCH (08:23)
[2019-04-26] MEDS: DULoxetine 30 MG Cap PO SCH (08:24)
[2019-04-26] MEDS: Bumetanide 1 MG Tab PO SCH (08:24)
[2019-04-26] MEDS: amLODIPine 5 MG Tab PO SCH (08:24)
[2019-04-26] MEDS: Lisinopril 10 MG Tab PO SCH (08:24)
[2019-04-26] MEDS: LUTEIN 20 MG PO SCH (08:25)
[2019-04-26] MEDS: FOLIC ACID 400 MCG PO SCH (08:25)
[2019-04-26] MEDS: Ascorbic Acid 500 MG Tab PO SCH (14:09)
[2019-04-26] MEDS: Rosuvastatin 10 MG Tab PO SCH (21:36)
[2019-04-26] MEDS: Multivitamins, Therapeutic with Minerals Tab PO SCH (21:36)
[2019-04-26] MEDS: Oxybutynin 5 MG Tab.ER PO SCH (21:36)
[2019-04-27] MEDS: ceFAZolin 2 GM in Premix Bag 1 BAG IV SCH ×3 (05:31→21:27)
[2019-04-27] MEDS: Acetaminophen 500 MG Tab PO SCH ×3 (05:32→21:24)
[2019-04-27] MEDS: Sodium Chloride 0.9% 10 ML Syringe FLUSH PRN ×4 (05:33→22:05)
[2019-04-27] MEDS: amLODIPine 5 MG Tab PO SCH (08:22)
[2019-04-27] MEDS: Lisinopril 10 MG Tab PO SCH (08:23)
[2019-04-27] MEDS: Rivaroxaban 10 MG Tab PO SCH (08:23)
[2019-04-27] MEDS: Potassium Chloride 10 MEQ Tab.ER PO SCH ×3 (08:23→17:58)
[2019-04-27] MEDS: DULoxetine 30 MG Cap PO SCH (08:23)
[2019-04-27] MEDS: FOLIC ACID 400 MCG PO SCH (08:24)
[2019-04-27] MEDS: LUTEIN 20 MG PO SCH (08:24)
[2019-04-27] MEDS: Methylcellulose Powder 479 GM Jar PO SCH ×2 (13:32→21:25)
[2019-04-27] MEDS: Ascorbic Acid 500 MG Tab PO SCH (13:37)
[2019-04-27] MEDS: Multivitamins, Therapeutic with Minerals Tab PO SCH (21:23)
[2019-04-27] MEDS: Oxybutynin 5 MG Tab.ER PO SCH (21:23)
[2019-04-27] MEDS: Rosuvastatin 10 MG Tab PO SCH (21:24)
[2019-04-28] MEDS: Acetaminophen 500 MG Tab PO SCH ×3 (05:53→21:24)
[2019-04-28] MEDS: ceFAZolin 2 GM in Premix Bag 1 BAG IV SCH ×3 (05:54→21:25)
[2019-04-28] MEDS: Sodium Chloride 0.9% 10 ML Syringe FLUSH PRN ×5 (05:55→21:26)
[2019-04-28] MEDS: Rivaroxaban 10 MG Tab PO SCH (08:34)
[2019-04-28] MEDS: amLODIPine 5 MG Tab PO SCH (08:34)
[2019-04-28] MEDS: DULoxetine 30 MG Cap PO SCH (08:35)
[2019-04-28] MEDS: Lisinopril 10 MG Tab PO SCH (08:35)
[2019-04-28] MEDS: Bumetanide 1 MG Tab PO SCH (08:35)
[2019-04-28] MEDS: Potassium Chloride 10 MEQ Tab.ER PO SCH ×3 (08:35→17:54)
[2019-04-28] MEDS: FOLIC ACID 400 MCG PO SCH (08:36)
[2019-04-28] MEDS: Methylcellulose Powder 479 GM Jar PO SCH ×3 (08:36→21:21)
[2019-04-28] MEDS: LUTEIN 20 MG PO SCH (08:36)
[2019-04-28] MEDS: Ascorbic Acid 500 MG Tab PO SCH (14:02)
[2019-04-28] MEDS: Multivitamins, Therapeutic with Minerals Tab PO SCH (21:24)
[2019-04-28] MEDS: Oxybutynin 5 MG Tab.ER PO SCH (21:24)
[2019-04-28] MEDS: Rosuvastatin 10 MG Tab PO SCH (21:25)
[2019-04-29] MEDS: ceFAZolin 2 GM in Premix Bag 1 BAG IV SCH ×2 (05:49→13:25)
[2019-04-29] MEDS: Acetaminophen 500 MG Tab PO SCH ×2 (05:49→13:24)
[2019-04-29] MEDS: Sodium Chloride 0.9% 10 ML Syringe FLUSH PRN (05:50)
[2019-04-29 07:50] VITALS: BP 143/74; PULSE 99
[2019-04-29] MEDS: DULoxetine 30 MG Cap PO SCH (08:57)
[2019-04-29] MEDS: amLODIPine 5 MG Tab PO SCH (08:57)
[2019-04-29] MEDS: Lisinopril 10 MG Tab PO SCH (08:58)
[2019-04-29] MEDS: Rivaroxaban 10 MG Tab PO SCH (08:58)
[2019-04-29] MEDS: Methylcellulose Powder 479 GM Jar PO SCH ×2 (08:58→13:25)
[2019-04-29] MEDS: FOLIC ACID 400 MCG PO SCH (08:58)
[2019-04-29] MEDS: LUTEIN 20 MG PO SCH (08:58)
[2019-04-29] MEDS: Potassium Chloride 10 MEQ Tab.ER PO SCH ×2 (08:58→13:23)
--- NOTE | 2019-04-29 13:07 | PCM.DCSUM1 ---
Discharge Summary - Hospital Course Free Text/Narrative:: Patient was admitted to swing bed from [facility] for septic arthritis of Right TKA to complete 6 week of IV Cefazolin. She is s/p I&D on 03/18/[address] Now off wound VAC. She was seen and evaluated today. No complaints today. She is doing ok. No fever or chills. IV abx was discontinued by ID and placed on PO abx. Patient is being discharged in stable condition. She will follow up with PCP and ID. Diagnosis: Stroke: No - Discharge Data Discharge Date: 04/29/19 Discharge Disposition: Home, Self-Care 01 Condition: Good - Referral to Home Health Primary Care Physician: Mariah Curry NP - Patient Summary/Data Consults: Consultations 03/25/19 13:08 OT Evaluation and Treatment [CONS] Routine PT Evaluation and Treatment [CONS] Routine - Patient Instructions Diet: Heart Healthy Diet Activity: As Tolerated Driving: May Drive Today Showering/Bathing: May Shower Notify Provider of: Fever, Increased Pain, Swelling and Redness, Drainage, Nausea and/or Vomiting - Discharge Plan *PRESCRIPTION DRUG MONITORING PROGRAM REVIEWED*: Not Applicable *COPY OF PRESCRIPTION DRUG MONITORING REPORT IN PATIENT STEVIE: Not Applicable Home Medications: Home Meds Rosuvastatin [Crestor] 20 mg PO BEDTIME 08/11/14 [History] Acetaminophen [Tylenol Extra Strength] 2 tab PO Q8HR 11/06/15 [History] Lutein 1 tab PO DAILY 11/06/15 [History] Methylcellulose [Fiber] 1 tab PO TID 11/06/15 [History] Bumetanide 1 mg PO Q48H 02/21/18 [History] Ascorbic Acid [Vitamin C] 1,000 mg PO 1400 02/24/18 [History] Folic Acid 400 mcg PO DAILY 02/24/18 [History] Glucosamine/Msm/Chondroitin A [Triple Flex Caplet] 1 each PO 1400 02/24/18 [ History] Oxybutynin Chloride [Ditropan Xl] 10 mg PO BEDTIME 02/24/18 [History] oxyCODONE 5 mg PO Q4H PRN 02/24/18 [History] Cyclobenzaprine [Flexeril] 10 mg PO TID PRN 03/25/19 [History] DULoxetine [Cymbalta] 30 mg PO DAILY 03/25/19 [History] FA/Lycopene/Lut/MV,Ca,Iron,Min [Centrum] 1 tab PO DAILY 03/25/19 [History] Labetalol [Normodyne] 200 mg PO BID 03/25/19 [History] Lisinopril 10 mg PO DAILY 03/25/19 [History] Potassium Chloride [Klor-Con 10] 10 meq PO TID 03/25/19 [History] Rivaroxaban [Xarelto] 10 mg PO DAILY 03/25/19 [History] Biotin 5 mg PO DAILY 03/27/19 [History] Oxygen Therapy Mode: Room Air - Discharge Summary/Plan Comment DC Time >30 min.: Yes - General Info Date of Service: 04/29/19 Admission Dx/Problem (Free Text: Septic arthritis of Right TKA . Subjective Update: Patient is admitted to [facility] from [facility] for septic arthritis of Right TKA to complete 6 week of IV Cefazolin. She is s/p I&D on 03/18/[address] Now off wound VAC. She was seen and evaluated today. No complaints today. She is doing ok. No fever or chills. Functional Status: Reports: Pain Controlled - Review of Systems General: Reports: No Symptoms HEENT: Reports: No Symptoms Pulmonary: Reports: No Symptoms Cardiovascular: Reports: No Symptoms Gastrointestinal: Reports: No Symptoms Genitourinary: Reports: No Symptoms Musculoskeletal: Reports: No Symptoms Skin: Reports: No Symptoms Neurological: Reports: No Symptoms Psychiatric: Reports: No Symptoms - Patient Data Vitals - Most Recent: Last Vital Signs Temp 97.4 F 04/29/19 07:49 Pulse 99 04/29/19 07:49 Resp 18 04/29/19 07:49 BP 143/74 H 04/29/19 08:58 Pulse Ox 94 L 04/29/19 07:49 Weight - Most Recent: 203 lb I&O - Last 24 hours: Intake & Output 04/28/19 04/29/19 04/29/19 22:59 06:59 14:59 Intake Total 495 560 Balance 495 560 Lab Results - Last 24 hrs: Laboratory Results - last 24 hr 04/29/19 04/29/19 04/29/19 Range/Units 05:50 05:50 05:50 WBC 7.3 (5.0-10.0) 10^3/uL RBC 3.68 L (4.2-5.4) 10^6/uL Hgb 11.4 L (12.0-16.0) g/dL Hct 35.0 L (37.0-47.0) % MCV 95.1 (80-100) fL MCH 31.0 (27.0-34.0) pg MCHC 32.6 L (33.0-35.0) g/dL Plt Count 287 (150-450) 10^3/uL Neut % (Auto) 55.8 (42.2-75.2) % Lymph % (Auto) 26.3 (20.5-50.1) % [place] % (Auto) 14.2 H (2-8) % Eos % (Auto) 3.0 (1.0-3.0) % Baso % (Auto) 0.7 (0.0-1.0) % ESR 7 (0-20) mm/hr Creatinine 0.9 (0.6-1.3) mg/dL Est Cr Clr Drug Dosing 44.49 mL/min Estimated GFR (MDRD) > 60 ALT 7 L (10-60) IU/L C-Reactive Protein 0.5 (0.0-1.3) mg/dL Med Orders - Current: Current Medications Acetaminophen (Tylenol Extra Strength) 1,000 mg PO Q8HR [facility] Last Admin: 04/29/19 05:49 Dose: 1,000 mg Amlodipine Besylate (Norvasc) 5 mg PO DAILY [facility] Last Admin: 04/29/19 08:57 Dose: 5 mg Ascorbic Acid (Vitamin C) 1,000 mg PO 1400 [facility] Last Admin: 04/28/19 14:02 Dose: 1,000 mg Bumetanide (Bumex) 1 mg PO Q2D@0900 [facility] Last Admin: 04/28/19 08:35 Dose: 1 mg Cyclobenzaprine HCl (Flexeril) 10 mg PO TID PRN PRN Reason: Muscle Spasm Last Admin: 03/25/19 14:16 Dose: 10 mg Duloxetine HCl (Cymbalta) 30 mg PO DAILY [facility] Last Admin: 04/29/19 08:57 Dose: 30 mg Cefazolin Sodium/Dextrose 2 gm (/ Premix) 50 mls @ 100 mls/hr IV Q8HR [facility] Last Infusion: 04/29/19 06:30 Dose: Infused Lisinopril (Prinivil) 10 mg PO DAILY [facility] Last Admin: 04/29/19 08:58 Dose: 10 mg Magnesium Hydroxide (Milk Of Magnesia) 30 ml PO Q12H PRN PRN Reason: Constipation Methylcellulose (Citrucel Sf) 0 gm PO TID [facility] Last Admin: 04/29/19 08:58 Dose: 1 tbsp Morphine Sulfate (Morphine) 2 mg IVPUSH Q2H PRN PRN Reason: Pain (severe 7-10) Multivitamins/Minerals (Vitamins And Minerals) 1 tab PO BEDTIME [facility] Last Admin: 04/28/19 21:24 Dose: 1 tab Ondansetron HCl (Zofran Odt) 4 mg PO Q4H PRN PRN Reason: nausea, able to take PO Oxybutynin Chloride (Oxybutynin Er) 10 mg PO BEDTIME [facility] Last Admin: 04/28/19 21:24 Dose: 10 mg Oxycodone HCl (Oxycodone) 5 mg PO Q4H PRN PRN Reason: Pain (moderate 4-6) Folic Acid 400 Mcg 1 each PO DAILY [facility] Last Admin: 04/29/19 08:58 Dose: 1 each Osteo Bi-Flex Tab 2 each PO DAILY@1400 [facility] Last Admin: 04/28/19 14:03 Dose: 2 each Lutein 20 Mg Softgel 1 each PO DAILY [facility] Last Admin: 04/29/19 08:58 Dose: 1 each Biotin 5,000 Mcg (Softgel) 1 each PO DAILY [facility] Last Admin: 04/29/19 08:58 Dose: 1 each Phenyleph/Shark Oil/Min Oil/Petrol (Preparation H Oint) 0 gm RECTAL TID PRN PRN Reason: Pain (mild 1-3) Potassium Chloride (Klor-Con 10) 10 meq PO TIDMEALS [facility] Last Admin: 04/29/19 08:58 Dose: 10 meq Rivaroxaban (Xarelto) 10 mg PO DAILY [facility] Last Admin: 04/29/19 08:58 Dose: 10 mg Rosuvastatin Calcium (Crestor) 20 mg PO BEDTIME [facility] Last Admin: 04/28/19 21:25 Dose: 20 mg Sodium Chloride (Saline Flush) 10 ml FLUSH ASDIRECTED PRN PRN Reason: Keep Vein Open Last Admin: 04/29/19 05:50 Dose: 10 ml Discontinued Medications Cefazolin Sodium/Dextrose 1 gm (/ Premix) 50 mls @ 100 mls/hr IV Q8HR [facility] Last Infusion: 03/25/19 14:56 Dose: Infused Cefazolin Sodium/Dextrose 1 gm (/ Premix) 50 mls @ 100 mls/hr IV ONETIME ONE Stop: 03/25/19 15:14 Last Admin: 03/25/19 14:57 Dose: Not Given Cefazolin Sodium/Dextrose 2 gm (/ Premix) 50 mls @ 100 mls/hr IV Q8HR [facility] Last Admin: 04/12/19 06:06 Dose: 100 mls/hr Cefazolin Sodium 2 gm/ Sodium (Chloride) 50 mls @ 100 mls/hr IV Q8HR [facility] Last Admin: 04/22/19 15:57 Dose: Not Given Labetalol HCl (Normodyne) 200 mg PO BID [facility] Last Admin: 04/03/19 08:42 Dose: Not Given Methylcellulose (Citrucel) 500 mg PO TID [facility] Last Admin: 04/27/19 08:23 Dose: 500 mg Oxycodone/Acetaminophen (Percocet 325-5 Mg) 1 tab PO Q4H PRN PRN Reason: Pain (moderate 4-6) - Exam Quality Assessment: Reports: DVT Prophylaxis General: Reports: Alert, Oriented HEENT: Reports: Pupils Equal, Pupils Reactive, EOMI, Mucous Membr. Moist/[place] Neck: Reports: Supple Lungs: Reports: Clear to Auscultation, Normal Respiratory Effort Cardiovascular: Reports: Regular Rate, Regular Rhythm GI/Abdominal Exam: Normal Bowel Sounds, Soft, Non-Tender, No Organomegaly, No Distention, No Abnormal Bruit, No Mass, Pelvis Stable (Female) Exam: Normal External Exam, Normal Speculum Exam, Normal Bimanual Exam Rectal (Female) Exam: Normal Exam, Normal Rectal Tone Back Exam: Reports: Normal Inspection, Full Range of Motion Extremities: Normal Inspection, Normal Range of Motion, Non-Tender, No Pedal Edema, Normal Capillary Refill Skin: Reports: Warm, Dry, Intact Wound/Incisions: Reports: Healing Well Neurological: Reports: No New Focal Deficit Psy/Mental Status: Reports: Alert, Normal Affect, Normal Mood *Q Meaningful Use (DIS) - VTE *Q VTE Anticoagulation Contraindications: Alternative [place] Request PT
[2019-04-29] MEDS: Ascorbic Acid 500 MG Tab PO SCH (13:23)
== END 2019-04-29 14:27 | disposition home or self-care (01) | DRG 560 ==
LOC: OBSVTOIN 11:44 → DL.MS 11:44
PROVIDERS: ADMIT Internal Medicine; ATTEND Student in an Organized Health Care Education/Training Program
DX: T84.53XA Infection and inflammatory reaction due to internal right knee prosthesis, initial encounter (principal); I13.0 Hypertensive heart and chronic kidney disease with heart failure and stage 1 through stage 4 chronic kidney disease, or unspecified chronic kidney disease; Y83.8 Other surgical procedures as the cause of abnormal reaction of the patient, or of later complication, without mention of misadventure at the time of the procedure; Z96.653 Presence of artificial knee joint, bilateral; E78.5 Hyperlipidemia, unspecified; N18.9 Chronic kidney disease, unspecified; E03.9 Hypothyroidism, unspecified; G30.9 Alzheimer's disease, unspecified; F02.80 Dementia in other diseases classified elsewhere, unspecified severity, without behavioral disturbance, psychotic disturbance, mood disturbance, and anxiety; B95.61 Methicillin susceptible Staphylococcus aureus infection as the cause of diseases classified elsewhere; K21.9 Gastro-esophageal reflux disease without esophagitis; I50.9 Heart failure, unspecified; E66.9 Obesity, unspecified; Z79.899 Other long term (current) drug therapy; Z85.038 Personal history of other malignant neoplasm of large intestine; Z98.890 Other specified postprocedural states; Z88.8 Allergy status to other drugs, medicaments and biological substances; Z68.34 Body mass index [BMI] 34.0-34.9, adult
CPT/HCPCS: 36415; 80048; 82565; 84460; 85025; 85027; 85651; 86140; 97110-GP; 97116-GP; 97162-GP; 97165-GO; 97530-GO; 99211; A9270-GY; J0690; J7050

== ENCOUNTER 2019-05-05 13:57 | Emergency (ER) | payer MEDICARE, BC ==
[2019-05-05 14:06] VITALS: BP 151/76; PULSE 118
--- NOTE | 2019-05-05 15:06 | EDM.PDOC ---
"Scribed by Vandana Davis 05/05/19 [id number] for Nabeel Cunningham MD ED HPI GENERAL MEDICAL PROBLEM - General Chief Complaint: Lower Extremity Injury/Pain Stated Complaint: LEFT LEG Time Seen by Provider: 05/05/19 14:02 Source of Information: Reports: Patient, RN, RN Notes Reviewed History Limitations: Reports: No Limitations - History of Present Illness INITIAL COMMENTS - FREE TEXT/NARRATIVE: Patient presents to ER by POV with left lower leg and knee pain. The pain has been present for several days, mostly located at the back of the knee and the calf. 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 She is currently on Xarelto. Denies any fall or injury. Nothing alleviates the pain. The pain is somewhat aggravated by motion and weight bearing. She uses a cane for ambulation. Onset: Gradual Duration: Getting Worse Location: Reports: Lower Extremity, Left Quality: Reports: Ache Severity: Moderate Improves with: Reports: None Worsens with: Reports: None Associated Symptoms: Reports: No Other Symptoms Left Knee Pain Score (Numeric/FACES): 4 - Related Data Allergies Allergy/AdvReac Type Severity Reaction Status Date / Time amlodipine Allergy Other Verified 05/05/19 14:04 diphenhydramine Allergy Other Verified 05/05/19 14:04 metoprolol Allergy Other Verified 05/05/19 14:04 Home Meds: Home Meds Rosuvastatin [Crestor] 20 mg PO BEDTIME 08/11/14 [History] Acetaminophen [Tylenol Extra Strength] 2 tab PO Q8HR 11/06/15 [History] Lutein 1 tab PO DAILY 11/06/15 [History] Methylcellulose [Fiber] 1 tab PO TID 11/06/15 [History] Bumetanide 1 mg PO Q48H 02/21/18 [History] Ascorbic Acid [Vitamin C] 1,000 mg PO 1400 02/24/18 [History] Folic Acid 400 mcg PO DAILY 02/24/18 [History] Glucosamine/Msm/Chondroitin A [Triple Flex Caplet] 1 each PO 1400 02/24/18 [ History] Oxybutynin Chloride [Ditropan Xl] 10 mg PO BEDTIME 02/24/18 [History] Cyclobenzaprine [Flexeril] 10 mg PO TID PRN 03/25/19 [History] DULoxetine [Cymbalta] 30 mg PO DAILY 03/25/19 [History] FA/Lycopene/Lut/MV,Ca,Iron,Min [Centrum] 1 tab PO DAILY 03/25/19 [History] Lisinopril 10 mg PO DAILY 03/25/19 [History] Potassium Chloride [Klor-Con 10] 10 meq PO TID 03/25/19 [History] Rivaroxaban [Xarelto] 10 mg PO DAILY 03/25/19 [History] Biotin 5 mg PO DAILY 03/27/19 [History] Labetalol [Normodyne] 200 mg PO BID #120 tablet 04/29/19 [Rx] Past Medical History HEENT History: Reports: Cataract Other HEENT History: wears glasses Cardiovascular History: Reports: Heart Murmur, High Cholesterol, Hypertension Other Cardiovascular History: chest pain Respiratory History: Reports: None Gastrointestinal History: Reports: None Genitourinary History: Reports: Renal Disease, Urinary Incontinence Other Genitourinary History: CKD stage 3 GFR 30-59 ml/min DOCTOR OF DENTAL MEDICINE History: Reports: , Spontaneous Musculoskeletal History: Reports: Back Pain, Chronic, Osteoarthritis Other Musculoskeletal History: spinal stenosis of lumbar region Neurological History: Reports: None Psychiatric History: Reports: None Endocrine/Metabolic History: Reports: Osteopenia Hematologic History: Reports: None Other Hematologic History: acute dvt of popliteal vein of left lower extremity Immunologic History: Reports: None Oncologic (Cancer) History: Reports: Colon Other Oncologic History: skin Dermatologic History: Reports: None Other Dermatologic History: keratosis skin lesion of right arm - Infectious Disease History Infectious Disease History: Reports: Chicken Pox, Measles Other Infectious Disease History: jaundice - Past Surgical History HEENT Surgical History: Reports: None, Cataract Surgery Other HEENT Surgeries/Procedures: bilateral eyes Respiratory Surgical History: Reports: None GI Surgical History: Reports: Appendectomy, Colonoscopy Other GI Surgeries/Procedures: some of bowel removed because of cancer Female Surgical History: Reports: Breast Reduction, D&C Musculoskeletal Surgical History: Reports: Knee Replacement Other Musculoskeletal Surgeries/Procedures:: bilateral knee replacement Social & Family History - Family History Family Medical History: Noncontributory - Caffeine Use Caffeine Use: Reports: None, Coffee Caffeine Use Comment: [employer] Coffee - Living Situation & Occupation Living situation: Reports: Alone Occupation: Retired Review of Systems - Review of Systems Review Of Systems: ROS reveals no pertinent complaints other than HPI. ED EXAM, GENERAL - Physical Exam Exam: See Below Exam Limited By: No Limitations General Appearance: Alert, WD/WN, No Apparent Distress Head: Atraumatic, Normocephalic Neck: Normal Inspection, Supple, Non-Tender, Full Range of Motion Respiratory/Chest: No Respiratory Distress, Lungs Clear, Normal Breath Sounds, No Accessory Muscle Use, Chest Non-Tender Cardiovascular: Normal Peripheral Pulses, Regular Rate, Rhythm Back Exam: Normal Inspection Extremities: Normal Capillary Refill, Leg Pain (Left posterior knee mildly tender to palpation. Pt is obese, x-ray shows left patella w/lateral sublux however the anterior knee is not tender.). No: Joint Swelling, Luke's Sign, Increased Warmth, Mottled, Pallor, Redness Neurological: Alert, Oriented Psychiatric: Normal Affect, Normal Mood Skin Exam: Warm, Dry, Intact, Normal Color, No Rash Course - Vital Signs Last Recorded V/S: Last Vital Signs Temp 97.8 F 05/05/19 14:05 Pulse 118 H 05/05/19 14:05 Resp 20 05/05/19 14:05 BP 151/76 H 05/05/19 14:05 Pulse Ox 95 05/05/19 14:05 - Orders/Labs/Meds Labs: Laboratory Tests 05/05/19 05/05/19 05/05/19 Range/Units 14:25 14:25 14:25 WBC 10.6 H (5.0-10.0) 10^3/uL RBC 4.15 L (4.2-5.4) 10^6/uL Hgb 12.6 (12.0-16.0) g/dL Hct 39.2 (37.0-47.0) % MCV 94.5 (80-100) fL MCH 30.4 (27.0-34.0) pg MCHC 32.1 L (33.0-35.0) g/dL Plt Count 279 (150-450) 10^3/uL Neut % (Auto) 63.6 (42.2-75.2) % Lymph % (Auto) 21.5 (20.5-50.1) % [place] % (Auto) 13.1 H (2-8) % Eos % (Auto) 1.3 (1.0-3.0) % Baso % (Auto) 0.5 (0.0-1.0) % D-Dimer, Quantitative 1310 H (0-400) ng/mL C-Reactive Protein 0.6 (0.0-1.3) mg/dL - Radiology Interpretation Free Text/Narrative:: [facility] [place] [facility] Final Radiology Report Call: [phone] assistance Online chat: [email or web address] Name: ALOK OROSCO Age: 78Years F Date: 05/05/2019 SSN: -- : [id number] Study: XR KNEE 3 VIEWS LEFT Requesting Physician: NABEEL CUNNINGHAM Images: 3 Addl Studies: Provided Clinical History: Contrast: Contrast Medium: Contrast Amount: Contrast Method: Page 1 of 2 PROCEDURE INFORMATION: Exam: XR Left Knee Exam date and time: 05/05/2019 2:14 PM Clinical history: 78 years old, female; Prior surgery; Surgery date: 6+ months; Patient HX: Left knee pain no injury TECHNIQUE: Imaging protocol: XR Left knee. Views: 3 views. COMPARISON: No relevant prior studies available. FINDINGS: Bones/joints: Total replacement is in place. There is lateral subluxation of the patella. Joint effusion is present. Soft tissues: Soft tissue swelling is noted. Calcifications are noted posteriorly. Other findings: No prior imaging is available for comparison. IMPRESSION: 1. Total replacement is in place. 2. There is lateral subluxation of the patella. 3. Joint effusion is present. 4. Soft tissue swelling is noted. Recommend comparison with prior imaging. Thank you for allowing us to participate in the care of your patient. Dictated and Authenticated by: Josh Bledsoe DO ALOK OROSCO | Final Radiology Report CONFIDENTIALITY STATEMENT This report is intended only for use by the referring physician, and only in accordance with law. If you received this in error, call [phone]. Page 2 of 2 05/05/2019 2:36 PM Central Time ([place] & [place]) Departure - Departure Time of Disposition: 15:03 Disposition: Home, Self-Care 01 Condition: Good Clinical Impression: Effusion, left knee Subluxation of patella, acquired Qualifiers: Encounter type: sequela Laterality: left Qualified Code(s): S83.002S - Unspecified subluxation of left patella, sequela - Discharge Information *PRESCRIPTION DRUG MONITORING PROGRAM REVIEWED*: No *COPY OF PRESCRIPTION DRUG MONITORING REPORT IN PATIENT STEVIE: No Instructions: Knee Effusion Forms: ED Department Discharge Additional Instructions: Follow up with your primary doctor for recheck and consideration of left leg venous doppler ultrasound if your left knee pain persists or worsens. I have read and agree with the documentation that has been completed regarding this visit. By signing this record, I attest that the documentation was completed in my physical presence and is an accurate record of the encounter."
== END 2019-05-05 15:14 | disposition home or self-care (01) ==
LOC: DL.ED 13:57
DX: S83.002A Unspecified subluxation of left patella, initial encounter (principal); M25.462 Effusion, left knee; I12.9 Hypertensive chronic kidney disease with stage 1 through stage 4 chronic kidney disease, or unspecified chronic kidney disease; N18.3 Chronic kidney disease, stage 3 (moderate); E78.00 Pure hypercholesterolemia, unspecified; Z88.8 Allergy status to other drugs, medicaments and biological substances; Z79.01 Long term (current) use of anticoagulants; Z79.899 Other long term (current) drug therapy; X58.XXXA Exposure to other specified factors, initial encounter
CPT/HCPCS: 36415; 73562-LT; 85025; 85379; 86140; 99283; 99283-25

== ENCOUNTER 2021-03-02 12:30 | Emergency (ER) | payer MEDICARE, BC ==
[2021-03-02 12:46] VITALS: BP 177/81; PULSE 96
[2021-03-02] MEDS ORDERED: Lidocaine 1% 30 ML SDV INJECT ONE (13:07)
--- NOTE | 2021-03-02 13:45 | EDM.PDOC ---
ED HPI GENERAL MEDICAL PROBLEM - General Chief Complaint: Laceration Stated Complaint: LACERATED HAND Time Seen by Provider: 03/02/21 13:20 Source of Information: Reports: Patient History Limitations: Reports: No Limitations - History of Present Illness INITIAL COMMENTS - FREE TEXT/NARRATIVE: 80 y/o F c/o L hand laceration occured an hour prior while cutting Rhubarb in the garden. No blood thinners. Bleeding controlled with pressure. No other complaints or injury. Onset: Today, Sudden Duration: Hour(s): Location: Reports: Upper Extremity, Left Quality: Reports: Sharp Severity: Mild Left Hand Pain Score (Numeric/FACES): 3 - Related Data Allergies Allergy/AdvReac Type Severity Reaction Status Date / Time metoprolol Allergy Unknown Other Verified 03/02/21 12:43 amlodipine AdvReac Other Verified 03/02/21 12:43 diphenhydramine AdvReac Other Verified 03/02/21 12:43 Home Meds: Home Meds Rosuvastatin [Crestor] 20 mg PO BEDTIME 08/11/14 [History] Acetaminophen [Tylenol Extra Strength] 2 tab PO Q8HR 11/06/15 [History] Lutein 1 tab PO DAILY 11/06/15 [History] Methylcellulose [Fiber] 1 tab PO TID 11/06/15 [History] Bumetanide 1 mg PO Q48H 02/21/18 [History] Ascorbic Acid [Vitamin C] 1,000 mg PO 1400 02/24/18 [History] Folic Acid 400 mcg PO DAILY 02/24/18 [History] Glucosamine/Msm/Chondroitin A [Triple Flex Caplet] 1 each PO 1400 02/24/18 [History] Oxybutynin Chloride [Ditropan Xl] 10 mg PO BEDTIME 02/24/18 [History] Cyclobenzaprine [Flexeril] 10 mg PO TID PRN 03/25/19 [History] DULoxetine [Cymbalta] 30 mg PO DAILY 03/25/19 [History] FA/Lycopene/Lut/MV,Ca,Iron,Min [Centrum] 1 tab PO DAILY 03/25/19 [History] Lisinopril 10 mg PO DAILY 03/25/19 [History] Potassium Chloride [Klor-Con 10] 10 meq PO TID 03/25/19 [History] Rivaroxaban [Xarelto] 10 mg PO DAILY 03/25/19 [History] Biotin 5 mg PO DAILY 03/27/19 [History] Labetalol [Normodyne] 200 mg PO BID #120 tablet 04/29/19 [Rx] Past Medical History HEENT History: Reports: Cataract Other HEENT History: wears glasses Cardiovascular History: Reports: Heart Murmur, High Cholesterol, Hypertension Other Cardiovascular History: chest pain Respiratory History: Reports: None Gastrointestinal History: Reports: None Genitourinary History: Reports: Renal Disease, Urinary Incontinence Other Genitourinary History: CKD stage 3 GFR 30-59 ml/min 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: , Spontaneous Musculoskeletal History: Reports: Back Pain, Chronic, Osteoarthritis Other Musculoskeletal History: spinal stenosis of lumbar region Neurological History: Reports: None Psychiatric History: Reports: None Endocrine/Metabolic History: Reports: Osteopenia Hematologic History: Reports: None Other Hematologic History: acute dvt of popliteal vein of left lower extremity Immunologic History: Reports: None Oncologic (Cancer) History: Reports: Colon Other Oncologic History: skin Dermatologic History: Reports: None Other Dermatologic History: keratosis skin lesion of right arm - Infectious Disease History Infectious Disease History: Reports: Chicken Pox, Measles Other Infectious Disease History: jaundice - Past Surgical History HEENT Surgical History: Reports: None, Cataract Surgery Other HEENT Surgeries/Procedures: bilateral eyes Other Cardiovascular Surgeries/Procedures: cardiac ultrasound Respiratory Surgical History: Reports: None GI Surgical History: Reports: Appendectomy, Colonoscopy Other GI Surgeries/Procedures: some of bowel removed because of cancer Female Surgical History: Reports: Breast Reduction, D&C Musculoskeletal Surgical History: Reports: Knee Replacement Other Musculoskeletal Surgeries/Procedures:: bilateral knee replacement Social & Family History - Family History Family Medical History: No Pertinent Family History - Tobacco Use Tobacco Use Status *Q: Never Tobacco User - Caffeine Use Caffeine Use: Reports: None, Coffee Caffeine Use Comment: DeCaf Coffee - Recreational Drug Use Recreational Drug Use: No - Living Situation & Occupation Living situation: Reports: Alone Occupation: Retired ED ROS GENERAL - Review of Systems Review Of Systems: Comprehensive ROS is negative, except as noted in HPI. ED EXAM, SKIN/RASH Exam: See Below Exam Limited By: No Limitations General Appearance: Alert, WD/WN, No Apparent Distress Respiratory/Chest: No Respiratory Distress, Lungs Clear, Normal Breath Sounds, No Accessory Muscle Use, Chest Non-Tender Cardiovascular: Normal Peripheral Pulses Extremities: Other (1 cm suturable lac to Left lateral anterior aspect of hand. cms intact in hand.) ED SKIN PROCEDURES - Laceration/Wound Repair Left Lateral Hand Appearance: Subcutaneous Anesthetic Type: Local Local Anesthesia - Lidocaine (Xylocaine): 1% Plain Local Anesthetic Volume: 2cc Skin Prep: Saline Exploration/Debridement/Repair: Wound Explored Closed with: Sutures Lac/Wound length In cm: 2 Suture Size: 4-0 # of Sutures: 4 Suture Type: Interrupted Course - Vital Signs Last Recorded V/S: Last Vital Signs Temp 97.6 F 03/02/21 12:43 Pulse 96 03/02/21 12:43 Resp 20 03/02/21 12:43 BP 177/81 H 03/02/21 12:43 Pulse Ox 93 L 03/02/21 12:43 - Orders/Labs/Meds Meds: Medications Discontinued Medications Generic Name Dose Route Start Last Admin Trade Name Andreas PRN Reason Stop Dose Admin Lidocaine HCl 30 ml 03/02/21 13:07 03/02/21 13:17 Lidocaine 1% 30 Ml Sdv INJECT 03/02/21 13:08 30 ml ONETIME ONE Administration Departure - Departure Time of Disposition: 13:43 Disposition: Home, Self-Care 01 Condition: Good Clinical Impression: Laceration - Discharge Information *PRESCRIPTION DRUG MONITORING PROGRAM REVIEWED*: Not Applicable *COPY OF PRESCRIPTION DRUG MONITORING REPORT IN PATIENT STEVIE: Not Applicable Instructions: Laceration Care, Adult Forms: ED Department Discharge Additional Instructions: Leave your sutures in for 10 - 14 days. Use tylenol or motrin for pain as needed. If any new symptoms or concerns develop contact your primary care facility or return to the ER. Sepsis Event Note (ED) - Focused Exam Vital Signs: Vital Signs Temp Pulse Resp BP Pulse Ox 03/02/21 12:43 97.6 F 96 20 177/81 H 93 L
[2021-03-02] MEDS ORDERED: Bacitracin Oint 1 GM U/D Packet TOP ONE (13:51)
== END 2021-03-02 14:13 | disposition home or self-care (01) ==
LOC: DL.ED 12:30
DX: S61.412A Laceration without foreign body of left hand, initial encounter (principal); E78.00 Pure hypercholesterolemia, unspecified; I12.9 Hypertensive chronic kidney disease with stage 1 through stage 4 chronic kidney disease, or unspecified chronic kidney disease; N18.30 Chronic kidney disease, stage 3 unspecified; M19.90 Unspecified osteoarthritis, unspecified site; Z88.8 Allergy status to other drugs, medicaments and biological substances; Z79.899 Other long term (current) drug therapy; Z79.01 Long term (current) use of anticoagulants; W26.8XXA Contact with other sharp object(s), not elsewhere classified, initial encounter; Y92.007 Garden or yard of unspecified non-institutional (private) residence as the place of occurrence of the external cause
CPT/HCPCS: 12001; 99282-25

== ENCOUNTER 2021-10-25 06:06 | Day surgery (SDC) | payer MEDICARE, BC ==
[~2021-10-25 06:06] MED LIST: Dextrose 5%-0.45% NaCl 1,000 ML IV SCH; Midazolam 1 MG/ML 2 ML SDV ONE; Sodium Chloride 0.9% 10 ML Syringe FLUSH PRN; Sodium Chloride 0.9% 10 ML Syringe FLUSH SCH; fentaNYL 100 MCG/2 ML SDV ONE
[2021-10-25] MEDS ORDERED: fentaNYL 100 MCG/2 ML SDV IV ONE ×3 (06:07→07:46)
[2021-10-25] MEDS ORDERED: Midazolam 1 MG/ML 2 ML SDV IV ONE ×3 (06:07→07:47)
[2021-10-25 16:21] VITALS: PULSE 67
[2021-10-25 16:25] VITALS: BP 150/75
== END 2021-10-25 10:07 | disposition home or self-care (01) ==
LOC: DL.ENDO 06:06
PROVIDERS: ATTEND Internal Medicine Gastroenterology
DX: Z12.11 Encounter for screening for malignant neoplasm of colon (principal); K64.8 Other hemorrhoids; Z01.812 Encounter for preprocedural laboratory examination; Z85.038 Personal history of other malignant neoplasm of large intestine; Z20.822 Contact with and (suspected) exposure to COVID-19
CPT/HCPCS: J2250; J3010; J7042; U0002

== ENCOUNTER 2023-09-29 01:27 | Emergency (ER) | payer MEDICARE, BC ==
[2023-09-29] MEDS: Sodium Chloride 0.9% 10 ML Syringe FLUSH PRN (03:02)
[2023-09-29 03:13] LABS: BASOPHILS PERCENT AUTO 0.1 % (0.0-1.0); EOSINOPHILS PERCENT AUTO 0.4 % (1.0-3.0); HEMATOCRIT 40.5 % (37.0-47.0); HEMOGLOBIN 13.9 g/dL (12.0-16.0); LYMPHOCYTES PERCENT AUTO 11.5 % (20.5-50.1); MEAN CORPUSCULAR HEMOGLOBIN 31.8 pg (27.0-34.0); MEAN CORPUSCULAR HGB CONC 34.3 g/dL (33.0-35.0); MEAN CORPUSCULAR VOLUME 92.7 fL (80-100); MONOCYTES PERCENT AUTO 17.1 % (2-8); NEUTROPHILS PERCENT AUTO 70.9 % (42.2-75.2); PLATELET COUNT,PLT 245 10^3/uL (150-450); RED BLOOD CELL COUNT 4.37 10^6/uL (4.2-5.4); WHITE BLOOD CELL COUNT,WBC 7.7 10^3/uL (5.0-10.0)
[2023-09-29] MEDS: Loperamide 2 MG Cap PO ONE (03:41)
[2023-09-29 04:49] LABS: A/G RATIO 0.9; ALBUMIN 3.8 g/dL (3.4-5.0); ANION GAP 15.9 mEq/L (7-13); BILIRUBIN TOTAL 0.5 mg/dL (0.2-1.0); BUN/CREATININE RATIO 13.5 (No establ ref range); CALCIUM 8.5 mg/dL (8.5-10.1); CREATININE 1.11 mg/dL (0.55-1.02); EST CRCL DRUG DOSING (CG) 40.13 mL/min; MAGNESIUM 1.8 mg/dL (1.8-2.4); POTASSIUM,K 3.9 mmol/L (3.5-5.1); PROTEIN TOTAL,TP 7.8 g/dL (6.4-8.2)
[2023-09-29 05:23] VITALS: BP 92/69; PULSE 97
[2023-09-29 06:23] LABS: BILIRUBIN,URINE NEGATIVE (NEGATIVE); COLOR,URINE YELLOW (YELLOW); GLUCOSE,URINE NEGATIVE (NEGATIVE); KETONES,URINE NEGATIVE (NEGATIVE); LEUKOCYTE ESTERASE,URINE SMALL (NEGATIVE); NITRITE,URINE NEGATIVE (NEGATIVE); OCCULT BLOOD,URINE NEGATIVE (NEGATIVE); PH,URINE 5.5 (5.0-9.0); PROTEIN,URINE 30 (NEGATIVE); UROBILINOGEN,URINE 0.2 mg/dL (0.2-1.0)
[2023-09-29 06:27] LABS: APPEARANCE,URINE SLIGHTLY CLOUDY (CLEAR)
[2023-09-29 06:48] LABS: BACTERIA,URINE MANY /HPF (0-FEW/HPF); EPITHELIAL CELLS,URINE MANY /HPF (NOT SEEN); RBC,URINE 0-5 /HPF (0-5)
== END 2023-09-29 07:05 | disposition home or self-care (01) ==
LOC: DL.ED 01:27
DX: R19.7 Diarrhea, unspecified (principal); E78.00 Pure hypercholesterolemia, unspecified; Z88.8 Allergy status to other drugs, medicaments and biological substances; Z88.1 Allergy status to other antibiotic agents; Z79.899 Other long term (current) drug therapy
CPT/HCPCS: 36415; 80053; 81001; 83735; 85025; 87046; 87086; 87088; 87186; 99283; 99284; A9270-GY; J3490